=== PATIENT | female | born 1965 | race Caucasian/White ===

== ENCOUNTER 2024-02-10 12:17 | Inpatient (IN) | payer MEDICAID, SELFPAY ==
--- NOTE | ~2024-02-10 | XR_ITS ---
EXAMINATION: XR CHEST CLINICAL INFORMATION: Bilateral leg swelling COMPARISON: None available. TECHNIQUE: 2 views of the chest were obtained. FINDINGS: Lungs and pleural spaces: There is mild increased interstitial markings bilaterally. Cardiomediastinal silhouette mildly enlarged. Surgical clips in left axillary region. Spondylosis of the dorsal spine. XR/XR chest 2V IMPRESSION: Findings suspicious for pulmonary edema/congestive heart failure Electronically signed by: Timothy Love MD 02/10/2024 02:21 PM [facility]
--- NOTE | 2024-02-10 13:21 | ED_ITS ---
HPI - General Adult General Chief complaint: Dyspnea Stated complaint: both legs swelling Time Seen by Provider: 02/10/24 21:34 Source: patient Mode of arrival: wheelchair Limitations: no limitations History of Present Illness ED Provider: Theresa Redd NP HPI narrative: Patient is a 59-year-old female who presents emergency department for evaluation. She reports a longstanding history of hypertension which has gone untreated. She states ?I am stubborn?. The exact onset of her symptoms at this time are unclear but have been at least for a couple of months. She has noticed increased swelling to her bilateral lower extremities, so much so that recently she has developed weeping lesions to the lower legs. She has become increasingly more short of breath than dyspneic on exertion. She experiences diffuse anterior chest pain on exertion but not while at rest. Endorses orthopnea but denies PND. Also admits that she has had a poor appetite. She denies any recent URI symptoms, productive cough, nausea, vomiting, abdominal pain, numbness or tingling of the extremities. Related Data Allergies Allergy/AdvReac Type Severity Reaction Status Date / Time No Known Allergies Allergy Verified 02/10/24 13:23 [No Known Allergies*] Review of Systems 2 Review of Systems: Yes all other systems are reviewed and are negative PMFSH Past Medical History Attestation statement: The following information was validated with the patient. Source: old records reviewed Medical History Hypertension Social History Social History Alcohol intake: current Patient Tobacco Use Status: Never used Tobacco Smoked in Last 30 Days: No Use of substances other than those prescribed or required for medical reasons: Yes Substance Use Type: Marijuana Advance Directives: No Advance Directives Information Provided: No Do you have a plan to hurt others: No Plan Nutrition Risks: No Nutritional Risk Patient : No Physical Exam ED Vital Signs: Vital Signs - 24 hr 02/10/24 13:22 02/10/24 21:46 02/10/24 22:38 Temperature 98.1 F 97.8 F Pulse Rate 102 H 100 Respiratory Rate 18 37 H Blood Pressure 151/89 H 155/91 H 130/82 Pulse Oximetry 97 96 Oxygen Delivery Method Room Air Room Air BMI result Body Mass Index 50.8 Appearance: Alert.?Oriented to person, place and time. No acute distress.?Normal affect. Eyes: Pupils equal, round and reactive to light.? ENT: Pharynx normal.?? Neck: Normal inspection.? Neck supple.?? CVS: Heart sounds normal. Normal heart rate and rhythm.? Pulses normal.?? Respiratory: Tachypnea, no tripoding. Able to speak clear full sentences. Lung sounds clear at the apices, rales to the bilateral bases. Abdomen: Soft and non-tender. Normoactive bowel sounds. Skin: Skin warm and dry.? Normal skin color.? Extremities: 3+ pitting bilateral lower extremity edema.? Left lower leg with a few weeping ulcers. Unable to palpate pulses, positive Doppler signal DP bilaterally. No calf ttp? Neuro: Moves all extremities spontaneously. Sensation intact bilaterally. No focal neuro deficits. Course Course Course Narrative: This is a rapid medical exam performed by Nano Pereira NP: Additional HPI, ROS, PE not included below will be deferred to primary provider. Patient is a 59-year-old female presenting with 2 months of swelling to bilateral legs and feet. Does not have PCP. Plan: labs, cxr Medications Administered Generic Name Dose Route Start Last Admin Trade Name Freq PRN Reason Stop Dose Admin Enoxaparin Sodium 40 mg 02/10/24 23:30 02/11/24 00:34 Enoxaparin Sodium 40 Mg/0.4 Ml Syringe SUBCUT 40 mg Q12H BALDEMAR Administration Sodium Chloride 3 ml 02/11/24 00:00 02/11/24 00:49 0.9 % Sodium Chloride Flush 3 Ml Syringe IVFLUSH 3 ml QSHIFT BALDEMAR Administration Discontinued Medications Generic Name Dose Route Start Last Admin Trade Name Freq PRN Reason Stop Dose Admin Furosemide 60 mg 02/10/24 22:27 02/10/24 22:38 Furosemide 100 Mg/10 Ml Vial IVPUSH 02/10/24 22:28 60 mg ONCE ONE Administration Protocol Medical Decision Making Medical Decision Making [facility] Narrative: Patient is a 59-year-old female with known past medical history of hypertension which has gone untreated for many years. She presents with progressive bilateral lower extremity edema, shortness of breath and dyspnea on exertion for at least a couple of months but perhaps longer. As time my initial evaluation she is tachypneic but able to speak clear full sentences, clinical picture is consistent with acute onset CHF. On review of serum labs she has no leukocytosis, has a mild normocytic anemia not meeting any transfusion criteria, no thrombocytopenia. No electrolyte derangement. No BENEDICT. LFTs within normal range. Mildly elevated troponin 54.5 which is likely due to underlying heart failure rather than acute ACS. EKG is without acute ischemic findings; normal sinus rhythm with ventricular rate of 96, QTC prolonged at 482, no ST elevation. Initiating Lasix IV, patient will require admission to medicine service for further evaluation and treatment. Differential Diagnosis Differential Diagnoses: The differential diagnosis associated with the presentation includes No rash or lesions, urticaria, or evidence of angioedema to suggest allergic reaction/anaphylaxis. No swallowing difficulties to suggest aspiration. No recent trauma or injury, no tracheal deviation, unlikely tension pneumothorax. No recent URI symptoms to suggest viral illness, or pneumonia. No history of diabetes, unlikely DKA. No history of asthma or COPD to suggest acute exacerbation. Admission/Observation Consideration of admission/observation: Escalation of care including admission/observation considered Consult Healthcare Provider Management of the patient was discussed with: Hospitalist (Dr. Khanna) Lab Data MDM Lab Attestation statement: I reviewed the patient's lab results. (See narrative above) 02/10/24 14:53 02/10/24 14:53 Labs: Lab Results 02/10/24 Range/Units 14:53 WBC 7.7 (4.8-10.8) X10*3/uL RBC 4.04 L (4.20-5.50) X10*6/uL Hgb 11.1 L (12.0-16.0) g/dl Hct 35.5 L (37.0-47.0) % MCV 87.9 (80.0-98.0) fL MCH 27.5 (27.0-33.0) pg MCHC 31.3 (31.0-35.0) g/dl RDW 15.5 (11.0-16.0) % Plt Count 340 (160-400) X10*3/uL MPV 9.2 L (9.4-12.3) fL Immature Gran % (Auto) 0.3 (0.0-0.4) % Neut % (Auto) 78.5 H (45-73) % Lymph % (Auto) 15.8 L (20-40) % [place] % (Auto) 4.5 (2-11) % Eos % (Auto) 0.4 (0-4) % Baso % (Auto) 0.5 (0-2) % Lymph # (Auto) 1.2 (1.2-4.9) X10*3/uL [place] # (Auto) 0.4 (0.1-1.2) X10*3/uL Eos # (Auto) 0.0 (0.0-0.4) X10*3/uL Baso # (Auto) 0.0 (0.0-0.2) X10*3/uL Abs Immat Gran (auto) 0.02 (0.00-0.03) X10*3/uL Absolute Neuts (auto) 6.1 (2.0-8.3) x10*3/uL Absolute Nucleated RBC 0.000 (0.0-0.012) X10*3/uL Nucleated RBC % (auto) 0.0 (0.0-0.2) /100WBC Sodium 143 (135-145) mmol/L Potassium 3.7 (3.3-5.1) mmol/L Chloride 102 (96-108) mmol/L Carbon Dioxide 28 (22-29) mmol/L Anion Gap 17 (12-20) BUN 10 (9-16) mg/dL Creatinine 0.94 (0.5-1.4) mg/dL Estim Creat Clear Calc 89.1 Estimated GFR > 60 Random Glucose 98 (60-115) mg/dL Calcium 9.7 (8.4-10.2) mg/dL Total Bilirubin 0.8 (0.0-1.0) mg/dL AST 27 (5-31) U/L ALT 16 (0-31) U/L Alkaline Phosphatase 112 (39-117) U/L Troponin I High Sens 54.5 H* (<3.5-17.0) ng/L B-Natriuretic Peptide 1476 H (<100) pg/mL Total Protein 7.4 (6.5-8.0) g/dL Albumin 4.0 (3.5-5.0) g/dL Independent Interpretation I performed an independent interpretation of an: Plain X-Ray (Pulmonary congestion) Radiology Impression Discussion of test interpretation with radiology: I have reviewed the radiologist's reading. Radiologist Impression: XR/XR chest 2V IMPRESSION: Findings suspicious for pulmonary edema/congestive heart failure Independent Historian Clinical information obtained from an independent historian. History obtained from or confirmed by: Other (Children) Chronic Conditions Patient?s care impacted by: Hypertension Critical Care Time Critical Care Time Critical Care Time: Yes Total Critical Care Time: 35 Attestation: I personally attest to this critical care time spent taking care of the patient exclusive of all other billable procedures was approximately 35 minutes including initial evaluation of patient, ordering tests, x-ray interpretation, EKG interpretation, IV diuresis, medical consultation, documentation, re- evaluation. Discharge Plan Discharge Clinical Impression: Congestive heart failure (CHF), Hypertension Patient Disposition: Admitted As Inpatient
[2024-02-10 13:22] VITALS: BP 151/89; PULSE 102; RESP 18; TEMP 36.7; O2SAT 97; BMI 50.8
[2024-02-10 14:58] LABS: Basophils Percent Auto 0.5 % (0-2); Eosinophils Percent Auto 0.4 % (0-4); Hematocrit 35.5 % (37.0-47.0); Hemoglobin 11.1 g/dl (12.0-16.0); Imm Gran Abs Auto 0.02 X10*3/uL (0.00-0.03); Imm Gran Pct Auto 0.3 % (0.0-0.4); Lymphocytes Absolute Auto 1.2 X10*3/uL (1.2-4.9); Lymphocytes Percent Auto 15.8 % (20-40); MANUAL DIFF FLAG NO; Mean Corpuscular HGB Conc 31.3 g/dl (31.0-35.0); Mean Corpuscular Hemoglobin 27.5 pg (27.0-33.0); Mean Corpuscular Volume 87.9 fL (80.0-98.0); Mean Platelet Volume 9.2 fL (9.4-12.3); Monocytes Absolute Auto 0.4 X10*3/uL (0.1-1.2); Monocytes Percent Auto 4.5 % (2-11); Neutrophils Absolute Auto 6.1 x10*3/uL (2.0-8.3); Neutrophils Percent Auto 78.5 % (45-73); Platelet Count 340 X10*3/uL (160-400); Red Blood Count 4.04 X10*6/uL (4.20-5.50); Red Cell Distribution Width 15.5 % (11.0-16.0); White Blood Count 7.7 X10*3/uL (4.8-10.8)
[2024-02-10 15:12] LABS: Alanine Aminotransferase 16 U/L (0-31); Alkaline Phosphatase 112 U/L (39-117); Anion Gap 17 (12-20); Aspartate Amino Transferase 27 U/L (5-31); Bilirubin Total 0.8 mg/dL (0.0-1.0); Blood Urea Nitrogen 10 mg/dL (9-16); Calcium 9.7 mg/dL (8.4-10.2); Carbon Dioxide 28 mmol/L (22-29); Chloride 102 mmol/L (96-108); Creatinine Clr Calc Pharmacy 89.1; Estimated Glomerular Filt Rate > 60; Glucose Random 98 mg/dL (60-115); Potassium 3.7 mmol/L (3.3-5.1); Sodium 143 mmol/L (135-145); Total Protein 7.4 g/dL (6.5-8.0)
[2024-02-10 15:18] LABS: B Type Natriuretic Peptide 1476 pg/mL (<100)
[2024-02-10 21:46] VITALS: BP 155/91; PULSE 100; RESP 37; TEMP 36.6; O2SAT 96
--- NOTE | 2024-02-10 22:10 | ECG_ITS ---
Test Reason : chf Blood Pressure : / mmHG Vent. Rate : 096 BPM Atrial Rate : 096 BPM P-R Int : 146 ms QRS Dur : 102 ms QT Int : 382 ms P-R-T Axes : 037 026 119 degrees QTc Int : 482 ms Normal sinus rhythm Nonspecific ST and T wave abnormality Prolonged QT Abnormal ECG No previous ECGs available Referred By: Theresa Redd Electronically Signed By:Andriy Prakash
--- NOTE | 2024-02-10 22:10 | PC.NURSE ---
pt from home, a&ox4, respirations even and unlabored. pt reporting onset of lower extremity swelling and increased shortness of breath. pt reports shortness of breath increases with exertion. pt is able to speak in full clear sentences but is unable to ambulate long distance. pt noted to have bilateral expiratory wheezing. +pedal pulses noted with doppler. pt noted to have 3+ pitting edema.
[2024-02-10 22:36] LABS: Troponin-I High Sensitivity 54.5 ng/L (<3.5-17.0)
[2024-02-10 22:38] VITALS: BP 130/82
[2024-02-10] MEDS: Furosemide 100 MG/10 ML VIAL 60 MG IVPUSH (22:38)
--- NOTE | 2024-02-10 22:42 | P.HPHOSP_ITS ---
History of Present Illness Date of Service: 02/10/24 Chief Complaint: Dyspnea This is a 59-year-old female with pertinent history of hypertension noncompliant with prescription medications who presents to the emergency department for evaluation of leg swelling and dyspnea. Patient states her symptoms have been ongoing for the last 2 months. She noticed progressive swelling of her bilateral lower extremities. Also has been having dyspnea which is worse with exertion. Admits orthopnea. States she has not been taking any medications for her high blood pressure. Does not take any prescription medications. No fever, chills, chest pain, palpitations, abdominal pain, changes in urinary or bowel habits. In the emergency department, BNP found to be elevated and imaging with vascular congestion/pulmonary edema. Patient was given IV Lasix Review of Systems 2 Constitutional: Constitutional: Reports fatigue and Reports malaise Cardiovascular: Cardiovascular: Reports dyspnea on exertion and Reports orthopnea Respiratory: Respiratory: Reports dyspnea on exertion Gastrointestinal: Gastrointestinal: Reports no additional gastrointestinal complaints Genitourinary: Genitourinary: Reports no additional female genitourinary complaints Endocrine: Endocrine: Reports fatigue [facility] Medical History Hypertension Pertinent family history: No family history of early CAD Social History Alcohol intake: current Patient Tobacco Use Status: Never used Tobacco Smoked in Last 30 Days: No Use of substances other than those prescribed or required for medical reasons: Yes Substance Use Type: Marijuana Advance Directives: No Advance Directives Information Provided: No Do you have a plan to hurt others: No Plan Nutrition Risks: No Nutritional Risk Patient : No Meds Allergies Allergy/AdvReac Type Severity Reaction Status Date / Time No Known Allergies Allergy Verified 02/10/24 13:23 [No Known Allergies*] Physical Exam 2 Vital Signs and Narrative: Vital Signs: Last Vital Signs Temp 97.8 F 02/10/24 21:46 Pulse 100 02/10/24 21:46 Resp 37 H 02/10/24 21:46 BP 130/82 02/10/24 22:38 Pulse Ox 96 02/10/24 21:46 O2 Del Method Room Air 02/10/24 21:46 BMI result Body Mass Index 50.8 Middle-aged female lying in bed in no distress Neck supple Regular rate and rhythm, S1-S2 heard Bilateral crackles present Abdomen soft nontender, no guarding, no rigidity Patient is awake, alert and oriented to self, place, time and person ; no focal motor deficit Psych: Normal mood Bilateral pitting edema Results Labs 02/10/24 14:53 02/10/24 14:53 Labs: Laboratory Results - last 24 hr 02/10/24 14:53 MCV 87.9 MCH 27.5 MCHC 31.3 RDW 15.5 Plt Count 340 MPV 9.2 L Immature Gran % (Auto) 0.3 Neut % (Auto) 78.5 H Lymph % (Auto) 15.8 L [place] % (Auto) 4.5 Eos % (Auto) 0.4 Baso % (Auto) 0.5 Lymph # (Auto) 1.2 [place] # (Auto) 0.4 Eos # (Auto) 0.0 Baso # (Auto) 0.0 Abs Immat Gran (auto) 0.02 Absolute Neuts (auto) 6.1 Absolute Nucleated RBC 0.000 Nucleated RBC % (auto) 0.0 Anion Gap 17 Estim Creat Clear Calc 89.1 Estimated GFR > 60 Random Glucose 98 Calcium 9.7 Total Bilirubin 0.8 AST 27 ALT 16 Alkaline Phosphatase 112 Troponin I High Sens 54.5 H* B-Natriuretic Peptide 1476 H Total Protein 7.4 Albumin 4.0 Imaging Radiologist's Impressions: Impressions Chest X-Ray 02/10/24 13:23 IMPRESSION: Findings suspicious for pulmonary edema/congestive heart failure Electronically signed by: Timothy Love MD 02/10/2024 02:21 PM [facility] Assessment and Plan (1) Congestive heart failure (CHF): Status: Acute Plan This is a 59-year-old female with pertinent history of hypertension noncompliant with prescription medications who presents to the emergency department for evaluation of leg swelling and dyspnea. #. Acute decompensated congestive heart failure, new diagnosis: Will admit patient with IV diuresis. Strict I's and O's. Low-salt diet. Obtaining transthoracic echocardiogram #. Hypertension: Noncompliant with medications. Monitor with IV diuresis. Optimize and initiate antihypertensives #. Obesity: Counseled regarding diet and exercise #. Elevated troponin, likely type 2 in the setting of increased demand DVT prophylaxis: Lovenox Full code Admit as inpatient and will require two night minimum hospital stay for IV diuresis, optimization of volume status (as above), which is not possible in a lesser acute setting. Quality Stroke Does the patient have a stroke diagnosis?: No VTE Prior VTE?: No VTE Risk Level:: Medical - moderate - high VTE Device Contraindication: Treatment Not Indicated VTE Drug Contraindication: N/A - Med Ordered
--- NOTE | 2024-02-10 22:44 | PC.NURSE ---
20G placed in right forearm, pt medicated per mar. vss. pt given bedside commode and educated on use of call braden.
--- NOTE | 2024-02-10 23:17 | PC.NURSE ---
pt assisted to bedside commode, pt able to stand and pivot with steady gait, pt noted to be short of breath. urine sample obtained.
[2024-02-10 23:19] LABS: Troponin-I High Sensitivity 54.5 ng/L (<3.5-17.0)
[2024-02-10 23:26] LABS: Appearance Urine Cloudy; Color Urine Yellow; Glucose Urine UA Negative (Negative); Leukocyte Esterase Urine Trace (Negative); Nitrite Urine Negative (Negative); UMIC TRIGGER UACC YES; Urine Blood Negative (Negative); Urine Ketones Negative (Negative); Urine Protein 30 (1+) mg/dL (Neg-Trace)
[2024-02-10 23:36] LABS: Bacteria Urine 4+ (None Seen); Hyaline Casts Urine 0-2 /LPF (0-2); RBC Urine 0-2 /HPF (0-2); WBC Urine 0-5 /HPF (0-5)
[2024-02-11] MEDS: Enoxaparin Sodium 40 MG/0.4 ML SYRINGE SUBCUT ×3 (00:34→23:30)
[2024-02-11] MEDS: 0.9 % Sodium Chloride Flush 3 ML SYRINGE IVFLUSH ×2 (00:49→23:30)
--- NOTE | 2024-02-11 04:11 | PC.NURSE ---
pt assisted to bedside commode, pt able to stand pivot with stand by assist. pt voided 300ml urine.
[2024-02-11 05:17] LABS: MANUAL DIFF FLAG NO
[2024-02-11 05:22] LABS: Basophils Percent Auto 0.5 % (0-2); Eosinophils Absolute Auto 0.1 X10*3/uL (0.0-0.4); Eosinophils Percent Auto 0.7 % (0-4); Hematocrit 36.3 % (37.0-47.0); Hemoglobin 11.2 g/dl (12.0-16.0); Imm Gran Abs Auto 0.03 X10*3/uL (0.00-0.03); Imm Gran Pct Auto 0.3 % (0.0-0.4); Lymphocytes Absolute Auto 1.5 X10*3/uL (1.2-4.9); Lymphocytes Percent Auto 17.5 % (20-40); Mean Corpuscular HGB Conc 30.9 g/dl (31.0-35.0); Mean Corpuscular Hemoglobin 27.2 pg (27.0-33.0); Mean Corpuscular Volume 88.1 fL (80.0-98.0); Mean Platelet Volume 9.2 fL (9.4-12.3); Monocytes Absolute Auto 0.6 X10*3/uL (0.1-1.2); Monocytes Percent Auto 6.4 % (2-11); Neutrophils Absolute Auto 6.4 x10*3/uL (2.0-8.3); Neutrophils Percent Auto 74.6 % (45-73); Platelet Count 359 X10*3/uL (160-400); Red Blood Count 4.12 X10*6/uL (4.20-5.50); Red Cell Distribution Width 15.6 % (11.0-16.0); White Blood Count 8.6 X10*3/uL (4.8-10.8)
[2024-02-11 05:37] VITALS: BP 156/89; PULSE 103; RESP 20; TEMP 36.6; O2SAT 100
[2024-02-11 05:39] LABS: Anion Gap 15 (12-20); Blood Urea Nitrogen 10 mg/dL (9-16); Carbon Dioxide 31 mmol/L (22-29); Chloride 103 mmol/L (96-108); Creatinine Clr Calc Pharmacy 75.4; Estimated Glomerular Filt Rate 50; Glucose Random 106 mg/dL (60-115); Potassium 3.9 mmol/L (3.3-5.1); Sodium 145 mmol/L (135-145)
--- NOTE | 2024-02-11 06:45 | PC.NURSE ---
pt requesting to sit in chair, pt reports stretcher is uncomfortable at this time. attempted to obtain recliner or hospital bed, unable to obtain either. pt placed in chair per request, appears comfortable, no acute distress noted.
[2024-02-11 07:29] VITALS: BP 149/86; PULSE 103; RESP 25; TEMP 36.8; O2SAT 98
[2024-02-11] MEDS: Furosemide 40 MG/4 ML VIAL IVPUSH (08:26)
--- NOTE | 2024-02-11 08:27 | PC.NURSE ---
patient sitting up in chair next to bed eating breakfast this morning, patient is alert and oriented x4. patient resp even, patient breathing slightly labored. patient VSS, skin noted to be PWD. patient medicated per MAR. patient up to commode on her own.
--- NOTE | 2024-02-11 08:38 | PHA.MEDREC ---
Pharmacy Consult ? Medication Reconciliation Pharmacy has completed the medication reconciliation. Spoke with patient at bedside to confirm no home prescriptions.
--- NOTE | 2024-02-11 09:00 | MHC.EDTECH ---
assist patient to camode her out put was [phone]
--- NOTE | 2024-02-11 11:45 | MHC.CM.PN ---
Pt lives with family, she does not have a PCP, brochure with [facility] providers given, HCP discussed, she declined to complete form. She is independent, no home health services or DME. She can arrange transport home at DC. DCP: home, self care. CM to follow for DC needs.
[2024-02-11] MEDS: Acetaminophen 325 MG TABLET 650 MG PO (14:11)
--- NOTE | 2024-02-11 15:00 | MHC.EDTECH ---
patient on camode her urine out put was [phone]
--- NOTE | 2024-02-11 16:08 | HO.PM.IMPN ---
Subjective Subjective Date of Service: 02/11/24 Interval History: chf Review of Systems sob Physical Exam Vital Signs: Vital Signs: Last Vital Signs Temp 98.3 F 02/11/24 07:29 Pulse 103 H 02/11/24 07:29 Resp 25 H 02/11/24 07:29 BP 149/86 H 02/11/24 07:29 Pulse Ox 98 02/11/24 07:29 O2 Del Method Room Air 02/11/24 07:29 BMI result Body Mass Index 50.8 Middle-aged female lying in bed in no distress Regular rate and rhythm, S1-S2 heard. Bilateral crackles present Abdomen soft nontender, no guarding, no rigidity Patient is awake, alert and oriented to self, place, time and person ; no focal motor deficit Psych: Normal mood Bilateral pitting edema Objective Data Active Medications Acetaminophen (Acetaminophen 325 Mg Tablet) 650 mg PO Q6H PRN PRN Reason: Pain, Mild (Pain Scale 1-3), fever or headache Last Admin: 02/11/24 14:11 Dose: 650 mg Documented By: TROY Calcium Carbonate (Calcium Carbonate 750 Mg Tab.Chew) 750 mg PO Q4H PRN PRN Reason: Heartburn Enoxaparin Sodium (Enoxaparin Sodium 40 Mg/0.4 Ml Syringe) 40 mg SUBCUT Q12H [facility] Last Admin: 02/11/24 11:38 Dose: 40 mg Documented By: TROY Furosemide (Furosemide 40 Mg/4 Ml Vial) 40 mg IVPUSH DAILY [facility]; Protocol Last Admin: 02/11/24 08:26 Dose: 40 mg Documented By: TROY Magnesium Hydroxide (Milk Of Magnesia 30 Ml Oral.Susp) 30 ml PO DAILY PRN PRN Reason: Constipation Melatonin (Melatonin 3 Mg Tablet) 6 mg PO BEDTIME PRN PRN Reason: Insomnia Ondansetron HCl (Ondansetron Hcl 4 Mg/2 Ml Vial) 4 mg IVPUSH Q8H PRN PRN Reason: Nausea and Vomiting Sodium Chloride (0.9 % Sodium Chloride Flush 3 Ml Syringe) 3 ml IVFLUSH QSHIFT [facility] Last Admin: 02/11/24 15:46 Dose: Not Given Documented By: TROY Non-Admin Reason: See Note Labs 02/11/24 05:00 02/11/24 05:00 Labs: Laboratory Results - last 24 hr 02/10/24 02/10/24 02/10/24 14:53 22:51 23:13 MCV MCH MCHC RDW Plt Count MPV Immature Gran % (Auto) Neut % (Auto) Lymph % (Auto) [place] % (Auto) Eos % (Auto) Baso % (Auto) Lymph # (Auto) [place] # (Auto) Eos # (Auto) Baso # (Auto) Abs Immat Gran (auto) Absolute Neuts (auto) Absolute Nucleated RBC Nucleated RBC % (auto) Anion Gap Estim Creat Clear Calc Estimated GFR Random Glucose Calcium Troponin I High Sens 54.5 H* 54.5 H* Urine Color Yellow Urine Appearance Cloudy Urine pH 6.0 Ur Specific [place] 1.010 Urine Protein 30 (1+) H Urine Glucose (UA) Negative Urine Ketones Negative Urine Blood Negative Urine Nitrite Negative Ur Leukocyte Esterase Trace H Urine RBC 0-2 Urine WBC 0-5 Ur Squamous Epith Cells 3-5 Urine Bacteria 4+ Hyaline Casts 0-2 02/11/24 05:00 MCV 88.1 MCH 27.2 MCHC 30.9 L RDW 15.6 Plt Count 359 MPV 9.2 L Immature Gran % (Auto) 0.3 Neut % (Auto) 74.6 H Lymph % (Auto) 17.5 L [place] % (Auto) 6.4 Eos % (Auto) 0.7 Baso % (Auto) 0.5 Lymph # (Auto) 1.5 [place] # (Auto) 0.6 Eos # (Auto) 0.1 Baso # (Auto) 0.0 Abs Immat Gran (auto) 0.03 Absolute Neuts (auto) 6.4 Absolute Nucleated RBC 0.000 Nucleated RBC % (auto) 0.0 Anion Gap 15 Estim Creat Clear Calc 75.4 Estimated GFR 50 Random Glucose 106 Calcium 10.0 Troponin I High Sens Urine Color Urine Appearance Urine pH Ur Specific [place] Urine Protein Urine Glucose (UA) Urine Ketones Urine Blood Urine Nitrite Ur Leukocyte Esterase Urine RBC Urine WBC Ur Squamous Epith Cells Urine Bacteria Hyaline Casts Assessment and Plan (1) Congestive heart failure (CHF): Status: Acute Plan 59-year-old female with pertinent history of hypertension noncompliant with prescription medications who presents to the emergency department for evaluation of leg swelling and dyspnea. Acute decompensated congestive heart failure, new diagnosis: trop flat bnp [id number] continue with IV diuresis. Strict I's and O's. Low-salt diet. echocardiogram i/o neg 1.5 liters Hypertension: Noncompliant with medications. Monitor with IV diuresis. Optimize and initiate antihypertensives. Obesity: Counseled regarding diet and exercise Elevated troponin, likely type 2 in the setting of increased demand DVT prophylaxis: Lovenox . Full code ongoing inpatient and will require two night minimum hospital stay for IV diuresis, optimization of volume status (as above), which is not possible in a lesser acute setting. Quality Stroke Does the patient have a stroke diagnosis?: No VTE Prior VTE?: No VTE Risk Level:: Medical - moderate - high VTE Device Contraindication: Treatment Not Indicated VTE Drug Contraindication: N/A - Med Ordered
[2024-02-11 16:38] VITALS: BP 141/79; PULSE 102; RESP 16; TEMP 36.7; O2SAT 99
--- NOTE | 2024-02-11 18:39 | MHC.EDTECH ---
assist patient to camode. patient had a BM urine out put was [phone]. clean patient wt wipes,patient was unable to wipe bottom nurse aware.
--- NOTE | 2024-02-11 19:12 | PC.NURSE ---
report received from Candice BEAL that nurse to nurse report given and pt can go up at [phone]
[2024-02-11 19:18] VITALS: BP 138/81; PULSE 91; RESP 27; TEMP 36.3; O2SAT 99
[2024-02-11 20:28] VITALS: PULSE 108; RESP 20; TEMP 36.6; O2SAT 99
[2024-02-12] VITALS (8 sets, daily range): BP systolic 120–141; BP diastolic 66–79; PULSE 87–96; RESP 14–18; TEMP 36.3–37.1; O2SAT 96–97
--- NOTE | 2024-02-12 07:00 | CA_ITS ---
Transthoracic Echocardiogram Patient (Last, First, Middle): Malissa Lui, Gender: Female Date of : 1965 Age: 59 Procedure Date: 02/12/2024 Procedure Type: Transthoracic Echocardiogram Location: S3W Height: 162.56 cm Weight: 133.81 kg BSA: 2.31 m2 Heart Rate: 94 bpm BP: 149 / 86 mmHg Pediatrician/Medical Doctor: SB Referring MD: Pete Khanna MD Symptoms: CHF Study Quality: Adequate w contrast ECG Rhythm: Sinus Conclusions: - Normal left ventricular cavity size. The left ventricular systolic function is severely decreased. The visually estimated ejection fraction is between 20-25%. - Spectral Doppler is indicative of a restrictive filling pattern. Elevated filling pressures. - Normal right ventricular cavity size. There is mildly decreased right ventricular systolic function. - Moderately elevated right atrial pressure. Moderate pulmonary hypertension is present. Findings Procedure Information Contrast agent, definity, is being given per protocol without apparent complications. The quality of the study was technically difficult. The study quality is limited by patients body habitus. Left Ventricle Normal left ventricular cavity size. The left ventricular systolic function is severely decreased. The visually estimated ejection fraction is between 20-25%. There is severe global hypokinesis. Abnormal diastolic function is noted. Spectral Doppler is indicative of a restrictive filling pattern. Elevated filling pressures. Right Ventricle Normal right ventricular cavity size. There is mildly decreased right ventricular systolic function. Atria The left atrium is likely dilated. The right atrium is likely dilated. Aortic Valve Normal aortic valve structure and function. There is no aortic valve stenosis. There is no aortic valve regurgitation. Mitral Valve The mitral valve appears normal. There is trace mitral valve regurgitation. There is no mitral valve stenosis. Pulmonic Valve The pulmonic valve is likely normal. Tricuspid Valve Normal tricuspid valve structure. There is trace tricuspid valve regurgitation. The right ventricular systolic pressure is 54 mmHg. Moderately elevated right atrial pressure. Moderate pulmonary hypertension is present. Great Vessels There is mild dilatation of the ascending aorta measuring 3.80 cm. The visualized portions of the pulmonary artery and branches are normal. Venous The inferior vena cava is normal in size and collapses less than 50% with inspiration. Pericardium/Pleural There is no evidence of pericardial effusion. Prior Study Comparison No prior study available for comparison. Measurements 2D Linear Measurements IVSd: 0.66 0.6-0.9/0.6-1.0 cm LVIDd: 6.78 3.9-5.3/4.2-5.9 cm LVIDd Index: 2.94 2.4-3.2/2.2-3.1 cm/m2 LVIDs: 5.73 2.0-3.6 cm LVPWd: 0.93 0.7-1.1 cm LA Diam: 3.50 2.7-3.8/3.0-4.0 cm LAIDs Index: 1.52 1.5-2.3 cm/m2 LV Mass: 284.83 67-162/88-224 g LV Mass Index: 123.30 43-95/49-115 g/m2 LVOT Diam: 2.00 3.0+(-)1.3 cm 2D Systolic Function EF 4C: 25.30 >55% EF 2C: 23.60 >55% EF BiP: 26.20 >55% Mitral Valve MV Pk E: 1.25 MV PK A: 0.39 MV Decel Time: 124.00 E/A: 3.20 E'Lateral: 6.18 E'Medial: 4.26 E/E' Med: 29.30 E/E' Lat: 20.20 PHT: 36.00 MVA PHT: 6.11 Decel Kings: 10.12 Aortic Valve AoV Pk Cesar: 1.53 AoV Mn Cesar: 1.08 AoV VTI: 0.24 AoV Pk Grad: 9.00 Aov Mn Grad: 5.00 KRISTI Cont.VTI: 1.60 LVOT LVOT Pk Cesar: 0.78 LVOT Mn Cesar: 0.54 LVOT VTI: 0.12 LVOT Pk Grad: 2.00 LVOT Mn Grad: 2.00 LVOT Diam: 2.00 LVOT Area: 3.14 Diastolic Function MV Pk E: 1.25 MV Pk A: 0.39 E/A: 3.20 E'Medial: 4.26 E/E' Med: 29.30 E' Laterial: 6.18 E/E' Lat: 20.20 Right Ventricle TAPSE (mm): 15.30 TVS' Cesar: 8.76 Tricuspid Valve TR Pk Cesar: 3.14 TR Pk Grad: 39.00 RA Press: 8.00 RVSP: 54.00 Great Vessels Aorta Sinus of Valsalva: 3.10 2.0-3.5 cm Ao Asc: 3.80 2.1-3.4 cm Pulmonary Valve PV Pk Cesar: 1.21 Peak PV Grad: 6.00 Updated in Other Vendor System with Status of Final Andriy Prakash MD electronically signed on 02/12/2024 5:00:47 PM with status of Final
[2024-02-12] MEDS: 0.9 % Sodium Chloride Flush 3 ML SYRINGE IVFLUSH ×3 (07:36→23:56)
[2024-02-12] MEDS: Furosemide 20 MG/2 ML VIAL IVPUSH (09:51)
[2024-02-12] MEDS: Aspirin Enteric Coated 81 MG TABLET.DR PO (09:51)
[2024-02-12] MEDS: Enoxaparin Sodium 40 MG/0.4 ML SYRINGE SUBCUT ×2 (11:41→22:21)
--- NOTE | 2024-02-12 12:58 | PM.CNCAR ---
History of Present Illness History of Present Illness Date of Service: 02/12/24 Chief complaint: Dyspnea Narrative: [age] year female presenting with shortness of breath and peripheral edema. Clinically was noticed to be in heart failure and was admitted for further care. She underwent echocardiography which is showing cardiomyopathy at this point. She has longstanding history of hypertension and was not taking medicines the last 10 years. She also had breast cancer diagnosed in the left side for which she underwent surgery and chemotherapy in 2011. No radiation was given to her at that time. She is getting sharp stabbing chest pains with activity. Main complaint is shortness of breath and significant edema. She has been on IV diuretics at this point and is-960 mL. [facility] Past Medical History Medical History Hypertension Social History Social History Household Members: Other Household Members Other:: son Housing: Apartment Do you presently have visiting nurse or other home services: No Alcohol intake: current Patient Tobacco Use Status: Never used Tobacco Smoked in Last 30 Days: No Use of substances other than those prescribed or required for medical reasons: No Substance Use Type: Marijuana Currently Displaying Signs/Symptoms of Drug Intoxication Withdrawal: No Have you been hit, kicked, punched, or otherwise hurt by someone within the past year? If so, by whom?: No Do you feel safe in your current relationship?: No Current Relationship Is there a partner from a previous relationship who is making you feel unsafe now?: No Are you made to feel afraid or neglected: No Advance Directives: No Advance Directives Information Provided: No Do you have a plan to hurt others: No Plan Recently lost weight without trying: No Eating poorly because of decreased appetite: No Nutrition Risks: No Nutritional Risk Patient : No : No Poor oral hygiene: No service: No Meds Allergies Allergy/AdvReac Type Severity Reaction Status Date / Time No Known Allergies Allergy Verified 02/10/24 13:23 [No Known Allergies*] Active Medications: Current Medications Acetaminophen (Acetaminophen 325 Mg Tablet) 650 mg PO Q6H PRN PRN Reason: Pain, Mild (Pain Scale 1-3), fever or headache Last Admin: 02/11/24 14:11 Dose: 650 mg Aspirin (Aspirin Enteric Coated 81 Mg Tablet.) 81 mg PO DAILY [facility] Last Admin: 02/12/24 09:51 Dose: 81 mg Calcium Carbonate (Calcium Carbonate 750 Mg Tab.Chew) 750 mg PO Q4H PRN PRN Reason: Heartburn Enoxaparin Sodium (Enoxaparin Sodium 40 Mg/0.4 Ml Syringe) 40 mg SUBCUT Q12H [facility] Last Admin: 02/12/24 11:41 Dose: 40 mg Furosemide (Furosemide 20 Mg/2 Ml Vial) 40 mg IVPUSH BID@0900,1800 [facility]; Protocol Magnesium Hydroxide (Milk Of Magnesia 30 Ml Oral.Susp) 30 ml PO DAILY PRN PRN Reason: Constipation Melatonin (Melatonin 3 Mg Tablet) 6 mg PO BEDTIME PRN PRN Reason: Insomnia Ondansetron HCl (Ondansetron Hcl 4 Mg/2 Ml Vial) 4 mg IVPUSH Q8H PRN PRN Reason: Nausea and Vomiting Sacubitril/Valsartan (Sacubitril/Valsartan 1 Tab Tablet) 1 tab PO BID [facility]; Protocol Sodium Chloride (0.9 % Sodium Chloride Flush 3 Ml Syringe) 3 ml IVFLUSH QSHIFT [facility] Last Admin: 02/12/24 07:36 Dose: 3 ml Home Medications ?Medication ?Instructions ?Recorded ?Confirmed ?Last Taken ?Type acetaminophen 325 mg tablet 650 mg PO QID PRN Pain 02/11/24 02/11/24 3 Days Ago History (Tylenol) ~02/08/24 aspirin 325 mg tablet 650 mg PO Q4-6H PRN Pain 02/11/24 02/11/24 3 Days Ago History ~02/08/24 Physical Exam Vital Signs: Vital Signs: Last Vital Signs Temp 98.8 F 02/12/24 07:53 Pulse 96 02/12/24 07:53 Resp 16 02/12/24 07:53 BP 135/79 02/12/24 07:53 Pulse Ox 96 02/12/24 07:53 O2 Del Method Room Air 02/12/24 07:53 BMI result Body Mass Index 50.8 GENERAL APPEARANCE: in no acute distress, pleasant. NECK: no carotid bruit, + jugular venous distention. SKIN: no suspicious lesions, warm and dry. HEART: no murmurs, regular rate and rhythm. LUNGS: clear to auscultation bilaterally. ABDOMEN: soft, nontender. EXTREMITIES: 2+ edema. PERIPHERAL PULSES: equal. NEUROLOGIC: No gross deficits, AAO X 3 Objective Labs and Meds 02/11/24 05:00 02/11/24 05:00 Assessment and Plan (1) Hypertension: Status: Acute (2) Congestive heart failure (CHF): Status: Acute (3) Cardiomyopathy: Status: Acute Plan 59 year female presenting with shortness of breath and peripheral edema. Clinically in heart failure. Echocardiography is showing cardiomyopathy with LV dysfunction. We will review echocardiography in detail but it appears she has significant LV dysfunction at this point. She has background of breast cancer and previous chemotherapy which can be 1 potential reason for cardiomyopathy in her. Other possibilities are uncontrolled hypertension for long time versus ischemic heart disease. She has some chest pains with activity but she is describing a stabbing sensation in the chest. In any case she will need ischemic evaluation eventually. Continue IV diuretics. Adding Entresto and spironolactone. Once she is euvolemic we will add beta-andrei. Thank you for allowing me to participate in the care of your patient. Please feel free to contact me if you have any questions. Procedures Date of Service Date of Service: 02/12/24
[2024-02-12] MEDS: Sacubitril/Valsartan 24/26 1 TAB TABLET PO ×2 (13:30→20:55)
[2024-02-12] MEDS: Spironolactone 25 MG TABLET PO (13:30)
--- NOTE | 2024-02-12 14:39 | P.PNIM_ITS ---
Subjective Subjective Date of Service: 02/12/24 Interval History: chf execerebation Review of Systems sob somewhat improving has leg edema Physical Exam 2 Vital Signs: Vital Signs: Last Vital Signs Temp 98.8 F 02/12/24 07:53 Pulse 96 02/12/24 07:53 Resp 16 02/12/24 07:53 BP 137/78 02/12/24 13:30 Pulse Ox 96 02/12/24 07:53 O2 Del Method Room Air 02/12/24 07:53 BMI result Body Mass Index 50.8 General: Not in distress cvs:Regular rate and rhythm, S1-S2 heard. Chest: Air entry fair, has some bibasilar crackles Abdomen soft nontender, no guarding, no rigidity Patient is awake, alert and oriented to self, place, time and person ; no focal motor deficit Bilateral pitting andre Objective Data Active Medications Acetaminophen (Acetaminophen 325 Mg Tablet) 650 mg PO Q6H PRN PRN Reason: Pain, Mild (Pain Scale 1-3), fever or headache Last Admin: 02/11/24 14:11 Dose: 650 mg Documented By: TROY Aspirin (Aspirin Enteric Coated 81 Mg Tablet.) 81 mg PO DAILY COUNT [facility]CLUDES [facility] Last Admin: 02/12/24 09:51 Dose: 81 mg Documented By: CARL Calcium Carbonate (Calcium Carbonate 750 Mg Tab.Chew) 750 mg PO Q4H PRN PRN Reason: Heartburn Enoxaparin Sodium (Enoxaparin Sodium 40 Mg/0.4 Ml Syringe) 40 mg SUBCUT Q12H COUNT INCLUDES THE [facility] Last Admin: 02/12/24 11:41 Dose: 40 mg Documented By: CARL Furosemide (Furosemide 20 Mg/2 Ml Vial) 40 mg IVPUSH BID@0900,1800 COUNT [facility]CLUDES [facility]; Protocol Magnesium Hydroxide (Milk Of Magnesia 30 Ml Oral.Susp) 30 ml PO DAILY PRN PRN Reason: Constipation Melatonin (Melatonin 3 Mg Tablet) 6 mg PO BEDTIME PRN PRN Reason: Insomnia Ondansetron HCl (Ondansetron Hcl 4 Mg/2 Ml Vial) 4 mg IVPUSH Q8H PRN PRN Reason: Nausea and Vomiting Sacubitril/Valsartan (Sacubitril/Valsartan 1 Tab Tablet) 1 tab PO BID COUNT INCLUDES THE [facility]; Protocol Last Admin: 02/12/24 13:30 Dose: 1 tab Documented By: CARL Sodium Chloride (0.9 % Sodium Chloride Flush 3 Ml Syringe) 3 ml IVFLUSH QSHIFT COUNT INCLUDES THE [facility] Last Admin: 02/12/24 07:36 Dose: 3 ml Documented By: CARL Spironolactone (Spironolactone 25 Mg Tablet) 25 mg PO DAILY COUNT INCLUDES THE [facility]; Protocol Last Admin: 02/12/24 13:30 Dose: 25 mg Documented By: CARL Labs 02/11/24 05:00 02/11/24 05:00 Assessment and Plan (1) Congestive heart failure (CHF): Status: Acute Plan 59-year-old female with pertinent history of hypertension noncompliant with prescription medications who presents to the emergency department for evaluation of leg swelling and dyspnea. Acute decompensated congestive heart failure, new diagnosis: trop flat bnp 1476 Strict I's and O's. Low-salt diet. echocardiogram i/o neg 750 ml continue with IV 40 mg bid . Hypertension: Noncompliant with medications. Monitor with IV diuresis. Optimize and initiate antihypertensives. Obesity: Counseled regarding diet and exercise Elevated troponin, likely type 2 in the setting of increased demand DVT prophylaxis: Lovenox . Full code ongoing inpatient and will require two night minimum hospital stay for IV diuresis, optimization of volume status (as above), which is not possible in a lesser acute setting. Quality Stroke Does the patient have a stroke diagnosis?: No VTE Prior VTE?: No VTE Risk Level:: Medical - moderate - high VTE Device Contraindication: Treatment Not Indicated VTE Drug Contraindication: N/A - Med Ordered
--- NOTE | 2024-02-12 16:11 | HO.WOUND ---
Wound Consult: Initial 59yr old female? admitted to [facility] on 02/10/24 22:41- See progress notes and H&P for detailed history.? Wound consult placed for Left Lower Leg wounds.? Patient agreeable to assessment and photo documentation.? Patient reports she does not know the cause of the wounds has not treated them and reports she is not able to provide me when they first occured. She refused lower leg elevation, education provided but she still refused elevation. Left Leg Etiology: ?Venous wound with swelling Measurements: see charting for detailed measurement Wound Bed: two open wound sites with adherent yellow slough Drainage / Odor: serous no odor noted Edges: ? unattached Cora wound: pink erythema and firm swelling noted ? No Induration, Fluctuance or Warmth noted Pain: reports pain Goals of Treatment: ? Lower Leg elevation and durafiber AG for moisture management - pt to follow up oupt with Lymphedema clinic for compression therapy. Recommendations: 1. Provide adequate and supplemental nutrition.? 2. When applicable maintain blood glucose levels per Providers order. 3. Left Lower Leg - Elevate lower legs throughout day. encourage patient walking to engage calf pump for fluid management. Cleanse with NS, pat dry. Apply durafiber AG cover with dry gauze abd and wrap. Change Every other day. Recommend follow up out patient Wound Clinic at [address] [place] [address] and to call for an appointment at time of discharge. [phone].? Recommend follow up outpt with OT for Lymphedema and compression therapy. ?[facility] [address] [place] [address] . Re-consult wound care Nurse for wound deterioration or wound changes.
[2024-02-12] MEDS: Furosemide 20 MG/2 ML VIAL 40 MG IVPUSH (18:03)
[2024-02-12] MEDS: Acetaminophen 325 MG TABLET 650 MG PO (18:10)
[2024-02-13] VITALS (8 sets, daily range): BP systolic 114–138; BP diastolic 60–91; PULSE 87–96; RESP 14–18; TEMP 36.2–36.9; O2SAT 92–98
[2024-02-13 07:43] LABS: Anion Gap 14 (12-20); Blood Urea Nitrogen 10 mg/dL (9-16); Calcium 9.3 mg/dL (8.4-10.2); Carbon Dioxide 36 mmol/L (22-29); Chloride 95 mmol/L (96-108); Creatinine Clr Calc Pharmacy 82.9; Estimated Glomerular Filt Rate 56; Glucose Random 84 mg/dL (60-115); Potassium 4.2 mmol/L (3.3-5.1); Sodium 141 mmol/L (135-145)
[2024-02-13 08:14] LABS: B Type Natriuretic Peptide 824 pg/mL (<100)
[2024-02-13] MEDS: Spironolactone 25 MG TABLET PO (08:30)
[2024-02-13] MEDS: Sacubitril/Valsartan 24/26 1 TAB TABLET PO ×2 (08:32→20:37)
[2024-02-13] MEDS: 0.9 % Sodium Chloride Flush 3 ML SYRINGE IVFLUSH ×3 (08:33→22:32)
[2024-02-13] MEDS: Furosemide 20 MG/2 ML VIAL 40 MG IVPUSH (08:34)
[2024-02-13] MEDS: Aspirin Enteric Coated 81 MG TABLET.DR PO (08:34)
[2024-02-13] MEDS: Acetaminophen 325 MG TABLET 650 MG PO ×2 (08:34→22:31)
[2024-02-13] MEDS: Enoxaparin Sodium 40 MG/0.4 ML SYRINGE SUBCUT ×2 (10:37→22:32)
[2024-02-13] MEDS: Empagliflozin 10 MG TABLET PO (10:37)
--- NOTE | 2024-02-13 11:11 | PM.PNCARD ---
Subjective Subjective Date of Service: 02/13/24 Interval history: Seen and examined at bedside. Feeling better but still short of breath and volume overloaded. Physical Exam Vital Signs: Last Vital Signs Temp 97.1 F 02/13/24 07:38 Pulse 89 02/13/24 07:38 Resp 14 02/13/24 07:38 BP 133/72 02/13/24 08:34 Pulse Ox 98 02/13/24 07:38 O2 Del Method Room Air 02/13/24 07:38 BMI result Body Mass Index 50.8 GENERAL APPEARANCE: in no acute distress, pleasant. NECK: no carotid bruit, + jugular venous distention. SKIN: no suspicious lesions, warm and dry. HEART: no murmurs, regular rate and rhythm. LUNGS: clear to auscultation bilaterally. ABDOMEN: soft, nontender. EXTREMITIES: 2+ edema. PERIPHERAL PULSES: equal. NEUROLOGIC: No gross deficits, AAO X 3 Objective Labs and Meds 02/11/24 05:00 02/13/24 05:13 Lab results: Laboratory Results - last 24 hr 02/13/24 05:13 Sodium 141 Potassium 4.2 Chloride 95 L Carbon Dioxide 36 H Anion Gap 14 BUN 10 Creatinine 1.01 Estim Creat Clear Calc 82.9 Estimated GFR 56 Random Glucose 84 Calcium 9.3 D B-Natriuretic Peptide 824 H Progress Note: A&P Assessment and plan (1) Congestive heart failure (CHF): Status: Acute (2) Hypertension: Status: Acute (3) Cardiomyopathy: Status: Acute Plan [age] year female with background history of left breast cancer status post surgery and chemotherapy approximately 10 years ago presenting with shortness of breath and congestive heart failure. She has severe cardiomyopathy on the echocardiogram. Has been on IV diuretics and responding well to management so far. We have started guideline directed medical therapy with Entresto and spironolactone. Adding Jardiance today. Should be ready to be started on carvedilol may be in the next day or 2. We will follow along with you. Thank you for allowing me to participate in the care of your patient. Please feel free to contact me if you have any questions. Time Spent With Patient Time: Total time managing care of this patient today ____ minutes. Progress Note: Quality Stroke Does the patient have a stroke diagnosis?: No Procedures Date of Service Date of Service: 02/13/24
--- NOTE | 2024-02-13 12:40 | MHC.CM.PN ---
EMR REVIEWED AND PER MD ROUNDS, PT IS NOT MEDICALLY CLEARED FOR DC HOME. (VOLUME OVERLOADED, SOB) CM WILL CONTINUE TO FOLLOW FOR ANY CHANGE TO DC PLAN/NEEDS.
--- NOTE | 2024-02-13 13:44 | HO.PM.IMPN ---
Subjective Subjective Date of Service: 02/13/24 Interval History: chf execerebation Review of Systems sob improving Still has significant leg edema. Physical Exam Vital Signs: Vital Signs: Last Vital Signs Temp 97.1 F 02/13/24 07:38 Pulse 89 02/13/24 07:38 Resp 14 02/13/24 07:38 BP 133/72 02/13/24 08:34 Pulse Ox 98 02/13/24 07:38 O2 Del Method Room Air 02/13/24 07:38 BMI result Body Mass Index 50.8 General: Not in distress cvs:Regular rate and rhythm, S1-S2 heard. Chest: Air entry fair, has some bibasilar crackles Abdomen soft nontender, no guarding, no rigidity Patient is awake, alert and oriented to self, place, time and person ; no focal motor deficit Bilateral pitting andre Objective Data Active Medications Acetaminophen (Acetaminophen 325 Mg Tablet) 650 mg PO Q6H PRN PRN Reason: Pain, Mild (Pain Scale 1-3), fever or headache Last Admin: 02/13/24 08:34 Dose: 650 mg Documented By: CARL Aspirin (Aspirin Enteric Coated 81 Mg Tablet.Dr) 81 mg PO DAILY [facility] Last Admin: 02/13/24 08:34 Dose: 81 mg Documented By: CARL Calcium Carbonate (Calcium Carbonate 750 Mg Tab.Chew) 750 mg PO Q4H PRN PRN Reason: Heartburn Empagliflozin (Empagliflozin 10 Mg Tablet) 10 mg PO DAILY [facility] Last Admin: 02/13/24 10:37 Dose: 10 mg Documented By: CARL Enoxaparin Sodium (Enoxaparin Sodium 40 Mg/0.4 Ml Syringe) 40 mg SUBCUT Q12H [facility] Last Admin: 02/13/24 10:37 Dose: 40 mg Documented By: CARL Furosemide (Furosemide 20 Mg/2 Ml Vial) 40 mg IVPUSH BID@0900,1800 [facility]; Protocol Last Admin: 02/13/24 08:34 Dose: 40 mg Documented By: CARL Magnesium Hydroxide (Milk Of Magnesia 30 Ml Oral.Susp) 30 ml PO DAILY PRN PRN Reason: Constipation Melatonin (Melatonin 3 Mg Tablet) 6 mg PO BEDTIME PRN PRN Reason: Insomnia Ondansetron HCl (Ondansetron Hcl 4 Mg/2 Ml Vial) 4 mg IVPUSH Q8H PRN PRN Reason: Nausea and Vomiting Sacubitril/Valsartan (Sacubitril/Valsartan 1 Tab Tablet) 1 tab PO BID [facility]; Protocol Last Admin: 02/13/24 08:32 Dose: 1 tab Documented By: CARL Sodium Chloride (0.9 % Sodium Chloride Flush 3 Ml Syringe) 3 ml IVFLUSH QSHIFT [facility] Last Admin: 02/13/24 08:33 Dose: 3 ml Documented By: CARL Spironolactone (Spironolactone 25 Mg Tablet) 25 mg PO DAILY [facility]; Protocol Last Admin: 02/13/24 08:30 Dose: 25 mg Documented By: CARL Labs 02/11/24 05:00 02/13/24 05:13 Labs: Laboratory Results - last 24 hr 02/13/24 05:13 Anion Gap 14 Estim Creat Clear Calc 82.9 Estimated GFR 56 Random Glucose 84 Calcium 9.3 D B-Natriuretic Peptide 824 H Assessment and Plan (1) Congestive heart failure (CHF): Status: Acute Plan 59-year-old female with pertinent history of hypertension noncompliant with prescription medications who presents to the emergency department for evaluation of leg swelling and dyspnea. Acute decompensated congestive heart failure(HFrEF): trop flat bnp [id number] echocardiogram Strict I's and O's. Low-salt diet. i/o neg 2.9 liter continue with IV 40 mg daily , spironolactone, also added 1 dose acetazolamide.. Hypertension: Noncompliant with medications. Monitor with IV diuresis. Optimize and initiate antihypertensives. Obesity: Counseled regarding diet and exercise Elevated troponin, likely type 2 in the setting of increased demand DVT prophylaxis: Lovenox . Full code ongoing inpatient and will require two night minimum hospital stay for IV diuresis, optimization of volume status (as above), which is not possible in a lesser acute setting. Quality Stroke Does the patient have a stroke diagnosis?: No VTE Prior VTE?: No VTE Risk Level:: Medical - moderate - high VTE Device Contraindication: Treatment Not Indicated VTE Drug Contraindication: N/A - Med Ordered
--- NOTE | 2024-02-13 13:54 | P.CDIM_ITS ---
PROVIDER RESPONSE TEXT: To clarify, the appropriate diagnosis supported by the clinical indicators: Other (explain): HFrEF QUERY TEXT: PHYSICIAN'S DOCUMENTATION REQUEST Date of Query: 02/12/2024 02:14 PM EST Patient Name: Malissa Lui Admit Date: 02/11/2024 Dear Leo Patton MD, A review of the medical record indicates additional documentation may be needed. Please review below and update the documentation accordingly. Clinical Indicators: Per Cardiology consult 02/12/24: presenting with shortness of breath and peripheral edema. Clinically in heart failure. Echocardiograp hy is showing cardiomyopathy with LV dysfunction. Continue IV diuretics. Adding Entresto and spironolactone. Once she is euvolemic we will add beta-andrei. Please provide further specificity regarding the most likely type and acuity of CHF you are evaluatin g, treating, or monitoring. Systolic Please specify if Acute, Chronic, or Acute on chronic, or Unable to determine Diastolic Please specify if Acute, Chronic, or Acute on chronic, or Unable to determine Combined Systolic/Diastolic Please specify if Acute, Chronic, or Acute on chronic, or Unable to determine Other (explain) Clinically unable to determine (explain) Thank you, Brinda Segura RN Use of terms such as suspected, likely, concern for, or probable (associated with a specific diagnosi s that is being evaluated, monitored, or treated as if it exists) are acceptable and can be coded in the inpatient se tting, when documented at the time of discharge. Please use your independent medical judgment in providing your response. THIS QUERY IS PART OF THE PERMANENT MEDICAL RECORD
[2024-02-13] MEDS: acetaZOLAMIDE 250 MG TABLET PO (14:44)
[2024-02-14 07:39] VITALS: BP 116/68; PULSE 87; RESP 18; TEMP 36.6; O2SAT 96
[2024-02-14 08:10] LABS: Anion Gap 15 (12-20); Blood Urea Nitrogen 10 mg/dL (9-16); Calcium 10.2 mg/dL (8.4-10.2); Carbon Dioxide 31 mmol/L (22-29); Chloride 100 mmol/L (96-108); Creatinine Clr Calc Pharmacy 83.7; Estimated Glomerular Filt Rate 57; Glucose Random 96 mg/dL (60-115); Potassium 4.4 mmol/L (3.3-5.1); Sodium 142 mmol/L (135-145)
[2024-02-14 08:12] LABS: B Type Natriuretic Peptide 346 pg/mL (<100)
[2024-02-14] MEDS: Sacubitril/Valsartan 24/26 1 TAB TABLET PO ×2 (08:17→20:58)
[2024-02-14] MEDS: Furosemide 20 MG/2 ML VIAL 40 MG IVPUSH (08:18)
[2024-02-14] MEDS: Empagliflozin 10 MG TABLET PO (08:18)
[2024-02-14] MEDS: Spironolactone 25 MG TABLET PO (08:18)
[2024-02-14] MEDS: 0.9 % Sodium Chloride Flush 3 ML SYRINGE IVFLUSH ×3 (08:18→23:00)
[2024-02-14] MEDS: Aspirin Enteric Coated 81 MG TABLET.DR PO (08:18)
--- NOTE | 2024-02-14 08:34 | PC.NURSE ---
No dressing to lower legs, venous stasis ulcers open to air, patient refused dressing application reporting severe itchiness with dressing on.
--- NOTE | 2024-02-14 11:04 | HO.PM.IMPN ---
Subjective Subjective Date of Service: 02/14/24 Interval History: chf execerebation Review of Systems sob somewhat improving leg edema seems similar Physical Exam Vital Signs: Vital Signs: Last Vital Signs Temp 97.8 F 02/14/24 07:39 Pulse 87 02/14/24 07:39 Resp 18 02/14/24 07:39 BP 116/68 02/14/24 07:39 Pulse Ox 96 02/14/24 07:39 O2 Del Method Room Air 02/14/24 07:39 BMI result Body Mass Index 50.8 General: Not in distress cvs:Regular rate and rhythm, S1-S2 heard. Chest: Air entry fair, has some bibasilar crackles Abdomen soft nontender, no guarding, no rigidity Patient is awake, alert and oriented to self, place, time and person ; no focal motor deficit Bilateral pitting andre Objective Data Active Medications Acetaminophen (Acetaminophen 325 Mg Tablet) 650 mg PO Q6H PRN PRN Reason: Pain, Mild (Pain Scale 1-3), fever or headache Last Admin: 02/13/24 22:31 Dose: 650 mg Documented By: ROBERT Aspirin (Aspirin Enteric Coated 81 Mg Tablet.Dr) 81 mg PO DAILY [facility] Last Admin: 02/14/24 08:18 Dose: 81 mg Documented By: DIONY Calcium Carbonate (Calcium Carbonate 750 Mg Tab.Chew) 750 mg PO Q4H PRN PRN Reason: Heartburn Empagliflozin (Empagliflozin 10 Mg Tablet) 10 mg PO DAILY [facility] Last Admin: 02/14/24 08:18 Dose: 10 mg Documented By: DIONY Enoxaparin Sodium (Enoxaparin Sodium 40 Mg/0.4 Ml Syringe) 40 mg SUBCUT Q12H [facility] Last Admin: 02/13/24 22:32 Dose: 40 mg Documented By: ROBERT Furosemide (Furosemide 20 Mg/2 Ml Vial) 40 mg IVPUSH DAILY [facility]; Protocol Last Admin: 02/14/24 08:18 Dose: 40 mg Documented By: DIONY Magnesium Hydroxide (Milk Of Magnesia 30 Ml Oral.Susp) 30 ml PO DAILY PRN PRN Reason: Constipation Melatonin (Melatonin 3 Mg Tablet) 6 mg PO BEDTIME PRN PRN Reason: Insomnia Ondansetron HCl (Ondansetron Hcl 4 Mg/2 Ml Vial) 4 mg IVPUSH Q8H PRN PRN Reason: Nausea and Vomiting Sacubitril/Valsartan (Sacubitril/Valsartan 1 Tab Tablet) 1 tab PO BID [facility]; Protocol Last Admin: 02/14/24 08:17 Dose: 1 tab Documented By: DIONY Sodium Chloride (0.9 % Sodium Chloride Flush 3 Ml Syringe) 3 ml IVFLUSH QSHIFT BALDEMAR Last Admin: 02/14/24 08:18 Dose: 3 ml Documented By: DIONY Spironolactone (Spironolactone 25 Mg Tablet) 25 mg PO DAILY [facility]; Protocol Last Admin: 02/14/24 08:18 Dose: 25 mg Documented By: DIONY Labs 02/11/24 05:00 02/14/24 06:20 Labs: Laboratory Results - last 24 hr 02/14/24 06:20 Anion Gap 15 Estim Creat Clear Calc 83.7 Estimated GFR 57 Random Glucose 96 Calcium 10.2 D B-Natriuretic Peptide 346 H Assessment and Plan (1) Congestive heart failure (CHF): Status: Acute Plan 59-year-old female with pertinent history of hypertension noncompliant with prescription medications who presents to the emergency department for evaluation of leg swelling and dyspnea. Acute decompensated congestive heart failure(HFrEF): trop flat bnp [id number] echocardiogram Strict I's and O's. Low-salt diet. i/o neg 3.4 liter continue with IV 40 mg daily , spironolactone.. Hypertension: Noncompliant with medications. Monitor with IV diuresis. Optimize and initiate antihypertensives. Obesity: Counseled regarding diet and exercise Elevated troponin, likely type 2 in the setting of increased demand DVT prophylaxis: Lovenox . Full code ongoing inpatient need-hospital stay for IV diuresis, optimization of volume status (as above), which is not possible in a lesser acute setting. Quality Stroke Does the patient have a stroke diagnosis?: No VTE Prior VTE?: No VTE Risk Level:: Medical - moderate - high VTE Device Contraindication: Treatment Not Indicated VTE Drug Contraindication: N/A - Med Ordered
[2024-02-14] MEDS: Enoxaparin Sodium 40 MG/0.4 ML SYRINGE SUBCUT ×2 (11:06→23:00)
[2024-02-14] MEDS: Acetaminophen 325 MG TABLET 650 MG PO (11:10)
--- NOTE | 2024-02-14 12:32 | PM.PNCARD ---
Subjective Subjective Date of Service: 02/14/24 Interval history: Seen examined at bedside. Clinically improving. Still has lower extremity edema. Physical Exam Vital Signs: Last Vital Signs Temp 97.8 F 02/14/24 07:39 Pulse 87 02/14/24 07:39 Resp 18 02/14/24 07:39 BP 116/68 02/14/24 07:39 Pulse Ox 96 02/14/24 07:39 O2 Del Method Room Air 02/14/24 07:39 BMI result Body Mass Index 50.8 GENERAL APPEARANCE: in no acute distress, pleasant. NECK: no carotid bruit, + jugular venous distention. SKIN: no suspicious lesions, warm and dry. HEART: no murmurs, regular rate and rhythm. LUNGS: clear to auscultation bilaterally. ABDOMEN: soft, nontender. EXTREMITIES: 2+ edema. PERIPHERAL PULSES: equal. NEUROLOGIC: No gross deficits, AAO X 3 Objective Labs and Meds 02/11/24 05:00 02/14/24 06:20 Lab results: Laboratory Results - last 24 hr 02/14/24 06:20 Sodium 142 Potassium 4.4 Chloride 100 Carbon Dioxide 31 H Anion Gap 15 BUN 10 Creatinine 1.00 Estim Creat Clear Calc 83.7 Estimated GFR 57 Random Glucose 96 Calcium 10.2 D B-Natriuretic Peptide 346 H Progress Note: A&P Assessment and plan (1) Congestive heart failure (CHF): Status: Acute (2) Hypertension: Status: Acute (3) Cardiomyopathy: Status: Acute Plan [age] year female with background history of left breast cancer status post surgery and chemotherapy approximately 10 years ago presenting with shortness of breath and congestive heart failure. She has severe cardiomyopathy on the echocardiogram. Has been on IV diuretics and responding well to management so far. We have started guideline directed medical therapy with Entresto and spironolactone. Added Jardiance. Start carvedilol 3.125 mg twice a day. Compression stockings. Thank you for allowing me to participate in the care of your patient. Please feel free to contact me if you have any questions. Time Spent With Patient Time: Total time managing care of this patient today ____ minutes. Progress Note: Quality Stroke Does the patient have a stroke diagnosis?: No Procedures Date of Service Date of Service: 02/14/24
[2024-02-14 15:46] VITALS: BP 127/76; PULSE 88; RESP 18; TEMP 36.2; O2SAT 97
--- NOTE | 2024-02-14 17:10 | PC.NURSE ---
Order for knee high compressions TEDS received, patient's calf measures 18inch, will need x-large which are not available, will order.
[2024-02-14 23:47] VITALS: BP 114/62; PULSE 86; RESP 20; TEMP 36.4; O2SAT 97
[2024-02-15 07:18] LABS: Anion Gap 16 (12-20); Blood Urea Nitrogen 11 mg/dL (9-16); Carbon Dioxide 27 mmol/L (22-29); Chloride 102 mmol/L (96-108); Estimated Glomerular Filt Rate > 60; Glucose Random 103 mg/dL (60-115); Sodium 141 mmol/L (135-145)
[2024-02-15 07:29] LABS: B Type Natriuretic Peptide 216 pg/mL (<100)
[2024-02-15] MEDS: Furosemide 20 MG/2 ML VIAL 40 MG IVPUSH (07:40)
[2024-02-15] MEDS: Aspirin Enteric Coated 81 MG TABLET.DR PO (07:40)
[2024-02-15] MEDS: Spironolactone 25 MG TABLET PO (07:41)
[2024-02-15] MEDS: Acetaminophen 325 MG TABLET 650 MG PO (07:41)
[2024-02-15] MEDS: Sacubitril/Valsartan 24/26 1 TAB TABLET PO (07:41)
[2024-02-15] MEDS: Empagliflozin 10 MG TABLET PO (07:41)
[2024-02-15] MEDS: 0.9 % Sodium Chloride Flush 3 ML SYRINGE IVFLUSH (07:42)
[2024-02-15 08:02] VITALS: BP 122/66; PULSE 88; RESP 18; TEMP 36.2; O2SAT 94
--- NOTE | 2024-02-15 11:52 | P.DS_ITS ---
DS: Providers Provider Date of Service: 02/15/24 Date of admission: 02/10/24 22:41 Date of discharge: 02/15/24 Primary care physician: None Physician Consults: 02/12/24 09:00 Consult to Cardiology Routine Consulting Provider: [facility] Reason for consultation: New Chf Has provider been notified: No 02/12/24 12:41 Consult to Wound Care Routine Reason for consultation: LLE redness/weeping Attending physician on discharge: Leo Patton Discharging clinician: Leo Patton DS: Diagnosis Discharge Diagnosis (1) Congestive heart failure (CHF): Status: Acute DS: Summary Hospital Course Hospital Course: HPI:59-year-old female with pertinent history of hypertension noncompliant with prescription medications who presents to the emergency department for evaluation of leg swelling and dyspnea. Patient states her symptoms have been ongoing for the last 2 months. She noticed progressive swelling of her bilateral lower extremities. Also has been having dyspnea which is worse with exertion. Admits orthopnea. States she has not been taking any medications for her high blood pressure. Does not take any prescription medications. No fever, chills, chest pain, palpitations, abdominal pain, changes in urinary or bowel habits. In the emergency department, BNP found to be elevated and imaging with vascular congestion/pulmonary edema. Patient was given IV Lasix [facility] course: Patient was admitted because of leg swelling and dyspnea: Found to have CHF exacerbation: Patient was started on IV diuretics, daily weights, I&O monitoring. With above supportive care patient diuresed almost 3.5 liters , shortness of breath improved, leg swelling also improving. Patient echo shows low ejection fraction. Patient seen by Cardiology: Patient was started on Entresto, Jardiance, spironolactone in addition to Lasix. Patient was also strongly advised to we are compression stockings, leg elevation recommended also. Patient was CHF education given, if weight gain 2 lb or more in a week might need outpatient Lasix adjustment. plan: started on Entresto, Jardiance, spironolactone,coreg-tolerated well. continue lasix 40 mg po daily Monitor BMP closely in a week outpatient. patient will be making her pcp appointment ,also told to go to urgent care if needed lab work or pcp whoever can see her earlier. Cardiology may arrange their own appointment. Assessment plan coordination time spent 40 minute, patient understand and in agreement with the above plan, above was discussed in the presence of staff. Time Attestation Total time managing care of this patient today: 40 mintues. Discharge Coordination Time (in mins): 40 min Specific discharge activities: 40 min Quality: Safe Use of Opioids Does Pt have an Active Cancer Diagnosis on the Problem List?: No Quality: Stroke Does the patient have a stroke diagnosis?: No Physical Exam Vital Signs: Vital Signs: Last Vital Signs Temp 97.2 F 02/15/24 08:02 Pulse 88 02/15/24 08:02 Resp 18 02/15/24 08:02 BP 122/66 02/15/24 08:02 Pulse Ox 94 02/15/24 08:02 O2 Del Method Room Air 02/15/24 08:02 BMI result Body Mass Index 50.8 General: Not in distress cvs:Regular rate and rhythm, S1-S2 heard. Chest: Air entry fair, has some bibasilar crackles Abdomen soft nontender, no guarding, no rigidity Patient is awake, alert and oriented to self, place, time and person ; no focal motor deficit ext edema improving DS: Data Data Completed and Pending Labs on day of discharge: Laboratory Results - last 24 hr 02/15/24 06:26 Sodium 141 Potassium 4.0 Chloride 102 Carbon Dioxide 27 Anion Gap 16 BUN 11 Creatinine 0.92 Estim Creat Clear Calc 91.0 Estimated GFR > 60 Random Glucose 103 Calcium 10.0 B-Natriuretic Peptide 216 H Discharge Plan Discharge Anticipated Discharge Date/Time: 02/15/24 11:38 Patient Disposition: Home, Self-Care Discharge Diagnosis: chf excerebation Referrals: Physician,None [Primary Care Provider] - 1 Week Discharge Medications: New furosemide 40 mg Tablet 40 mg PO DAILY Qty: 60 0RF Protocol: Hold for SBP< HOLD for SBP < : 90 aspirin 81 mg Tablet,Delayed Release (Dr/Ec) 81 mg PO DAILY Qty: 30 0RF spironolactone 25 mg Tablet 25 mg PO DAILY Qty: 60 0RF Protocol: Hold for SBP< HOLD for SBP < : 90 Entresto 24-26 mg Tablet 1 tab PO BID Qty: 120 0RF Protocol: Hold for SBP< HOLD for SBP < : 90 Jardiance 10 mg Tablet 10 mg PO DAILY Qty: 60 0RF (SABINA) T.E.D. Knee Hcysww-A-Hgvg Misc See Rx Instructions .ROUTE .MEDSUPPLY Qty: 12 0RF Rx Instructions: As directed carvedilol [Coreg] 3.125 mg tablet 3.125 mg PO BID Qty: 120 0RF Rx Instructions: must administer with a meal/food Continued acetaminophen [Tylenol] 325 mg Tablet 650 mg PO QID PRN (Reason: Pain) Discontinued aspirin 325 mg Tablet 650 mg PO Q4-6H PRN (Reason: Pain) Discharge Orders: Discharge Order (Routine); Ordered 02/15/24 Ordered By: Leo Patton Diet: Advance to usual diet Activity on Discharge: As tolerated Stand Alone Forms: Patient Portal Discharge page Print Language: Guinean Activity Restrictions/Additional Instructions: Topical Wound Care Recommendations: Left Lower Leg - Elevate lower legs throughout day. encourage patient walking to engage calf pump for fluid management. Cleanse with NS, pat dry. Apply durafiber AG cover with dry gauze abd and wrap. Change Every other day. Recommend follow up out patient Wound Clinic at [address] [place] [address] and to call for an appointment at time of discharge. [phone].? Recommend follow up outpt with OT for Lymphedema and compression therapy. ?[facility] [address] [place] [address] . Care Plan Goals: Patient was admitted because of leg swelling and dyspnea: Found to have CHF exacerbation: Patient was started on IV diuretics, daily weights, I&O monitoring. With above supportive care patient diuresed almost 3.5 liters , shortness of breath improved, leg swelling also improving. Patient echo shows low ejection fraction. Patient seen by Cardiology: Patient was started on Entresto, Jardiance, spironolactone in addition to Lasix. Patient was also strongly advised to we are compression stockings, leg elevation recommended also. Patient was CHF education given, if weight gain 2 lb or more in a week might need outpatient Lasix adjustment. Monitor BMP closely in a week outpatient Cardiology may arrange their own appointment. Health Concerns: As above. Plan of Treatment: As above. Assessment: As above.
[2024-02-15] MEDS: Enoxaparin Sodium 40 MG/0.4 ML SYRINGE SUBCUT (12:43)
--- NOTE | 2024-02-15 12:49 | PM.PNCARD ---
Subjective Subjective Date of Service: 02/15/24 Interval history: Seen examined at bedside. Clinically improving. Continues to have lower extremity edema. Physical Exam Vital Signs: Last Vital Signs Temp 97.2 F 02/15/24 08:02 Pulse 88 02/15/24 08:02 Resp 18 02/15/24 08:02 BP 122/66 02/15/24 08:02 Pulse Ox 94 02/15/24 08:02 O2 Del Method Room Air 02/15/24 08:02 BMI result Body Mass Index 50.8 GENERAL APPEARANCE: in no acute distress, pleasant. NECK: no carotid bruit, no jugular venous distention. SKIN: no suspicious lesions, warm and dry. HEART: no murmurs, regular rate and rhythm. LUNGS: clear to auscultation bilaterally. ABDOMEN: soft, nontender. EXTREMITIES: 1-2 + edema. PERIPHERAL PULSES: equal. NEUROLOGIC: No gross deficits, AAO X 3 Objective Labs and Meds 02/11/24 05:00 02/15/24 06:26 Lab results: Laboratory Results - last 24 hr 02/15/24 06:26 Sodium 141 Potassium 4.0 Chloride 102 Carbon Dioxide 27 Anion Gap 16 BUN 11 Creatinine 0.92 Estim Creat Clear Calc 91.0 Estimated GFR > 60 Random Glucose 103 Calcium 10.0 B-Natriuretic Peptide 216 H Progress Note: A&P Assessment and plan (1) Congestive heart failure (CHF): Status: Acute (2) Hypertension: Status: Acute (3) Cardiomyopathy: Status: Acute Plan 59-year-old female with background history of left breast cancer status post surgery and chemotherapy approximately 10 years ago presenting with shortness of breath and congestive heart failure. She has severe cardiomyopathy on the echocardiogram. Has been on IV diuretics and responding well to management so far. We have started guideline directed medical therapy with Entresto and spironolactone. Added Jardiance. Add carvedilol 3.125 mg twice a day. Compression stockings for legs. We will arrange follow-up. Thank you for allowing me to participate in the care of your patient. Please feel free to contact me if you have any questions. Time Spent With Patient Time: Total time managing care of this patient today ____ minutes. Progress Note: Quality Stroke Does the patient have a stroke diagnosis?: No Procedures Date of Service Date of Service: 02/15/24
--- NOTE | 2024-02-15 12:53 | HO.PM.IMPN ---
Subjective Subjective Date of Service: 02/15/24 Interval History: chf Review of Systems sob improving Physical Exam Vital Signs: Vital Signs: Last Vital Signs Temp 97.2 F 02/15/24 08:02 Pulse 88 02/15/24 08:02 Resp 18 02/15/24 08:02 BP 122/66 02/15/24 08:02 Pulse Ox 94 02/15/24 08:02 O2 Del Method Room Air 02/15/24 08:02 BMI result Body Mass Index 50.8 General: Not in distress cvs:Regular rate and rhythm, S1-S2 heard. Chest: Air entry fair, has some bibasilar crackles Abdomen soft nontender, no guarding, no rigidity Patient is awake, alert and oriented to self, place, time and person ; no focal motor deficit Bilateral pitting andre Objective Data Active Medications Acetaminophen (Acetaminophen 325 Mg Tablet) 650 mg PO Q6H PRN PRN Reason: Pain, Mild (Pain Scale 1-3), fever or headache Last Admin: 02/15/24 07:41 Dose: 650 mg Documented By: SANTOS Aspirin (Aspirin Enteric Coated 81 Mg Tablet.Dr) 81 mg PO DAILY [facility] Last Admin: 02/15/24 07:40 Dose: 81 mg Documented By: SANTOS Calcium Carbonate (Calcium Carbonate 750 Mg Tab.Chew) 750 mg PO Q4H PRN PRN Reason: Heartburn Carvedilol (Carvedilol 3.125 Mg Tablet) 3.125 mg PO BID [facility]; Protocol Empagliflozin (Empagliflozin 10 Mg Tablet) 10 mg PO DAILY [facility] Last Admin: 02/15/24 07:41 Dose: 10 mg Documented By: SANTOS Enoxaparin Sodium (Enoxaparin Sodium 40 Mg/0.4 Ml Syringe) 40 mg SUBCUT Q12H [facility] Last Admin: 02/15/24 12:43 Dose: 40 mg Documented By: SANTOS Furosemide (Furosemide 40 Mg Tablet) 40 mg PO DAILY [facility]; Protocol Magnesium Hydroxide (Milk Of Magnesia 30 Ml Oral.Susp) 30 ml PO DAILY PRN PRN Reason: Constipation Melatonin (Melatonin 3 Mg Tablet) 6 mg PO BEDTIME PRN PRN Reason: Insomnia Ondansetron HCl (Ondansetron Hcl 4 Mg/2 Ml Vial) 4 mg IVPUSH Q8H PRN PRN Reason: Nausea and Vomiting Sacubitril/Valsartan (Sacubitril/Valsartan 1 Tab Tablet) 1 tab PO BID [facility]; Protocol Last Admin: 02/15/24 07:41 Dose: 1 tab Documented By: SANTOS Sodium Chloride (0.9 % Sodium Chloride Flush 3 Ml Syringe) 3 ml IVFLUSH QSHIFT [facility] Last Admin: 02/15/24 07:42 Dose: 3 ml Documented By: SANTOS Spironolactone (Spironolactone 25 Mg Tablet) 25 mg PO DAILY [facility]; Protocol Last Admin: 02/15/24 07:41 Dose: 25 mg Documented By: SANTOS Labs 02/11/24 05:00 02/15/24 06:26 Labs: Laboratory Results - last 24 hr 02/15/24 06:26 Anion Gap 16 Estim Creat Clear Calc 91.0 Estimated GFR > 60 Random Glucose 103 Calcium 10.0 B-Natriuretic Peptide 216 H Assessment and Plan (1) Congestive heart failure (CHF): Status: Acute Plan 59-year-old female with pertinent history of hypertension noncompliant with prescription medications who presents to the emergency department for evaluation of leg swelling and dyspnea. Acute decompensated congestive heart failure(HFrEF): trop flat bnp [id number] echocardiogram Strict I's and O's. Low-salt diet. i/o neg 3.4 liter continue with IV 40 mg daily , spironolactone.. Hypertension: Noncompliant with medications. Monitor with IV diuresis. Optimize and initiate antihypertensives. Obesity: Counseled regarding diet and exercise Elevated troponin, likely type 2 in the setting of increased demand DVT prophylaxis: Lovenox . Full code ongoing inpatient need-hospital stay for IV diuresis, optimization of volume status (as above), which is not possible in a lesser acute setting. Quality Stroke Does the patient have a stroke diagnosis?: No VTE Prior VTE?: No VTE Risk Level:: Medical - moderate - high VTE Device Contraindication: Treatment Not Indicated VTE Drug Contraindication: N/A - Med Ordered
[2024-02-15] MEDS: carvediloL 3.125 MG TABLET PO (13:04)
--- NOTE | 2024-02-15 13:19 | MHC.CM.PN ---
PT CLEARED TO [facility] TODAY WITH NO SERVICES PT IS AWARE SHE NEEDS TO SCHEDULE A NEW PCP APPT SOON POSSIBLE SHE WILL UTILIZE URGENT CARE CLINICS FOR FOLLOW UP IN THE MEANTIME PT WILL ARRANGE TRANSPORT HOME ONCE HER KIDS ARE OUT OF WORK THIS AFTERNOON
[2024-02-15 15:53] VITALS: BP 107/75; PULSE 84; RESP 15; TEMP 36.1; O2SAT 99
[2024-02-15 17:03] VITALS: BP 110/77; PULSE 88
== END 2024-02-15 18:36 | disposition home or self-care (01) | DRG 194 ==
LOC: HO.ED 22:53 → HO.EDOVER 23:42 → HO.S3 02-11 18:58
PROVIDERS: Nurse Practitioner Family; Registered Nurse Emergency; Admitting Provider Student in an Organized Health Care Education/Training Program; Emergency Provider Emergency Medicine; Visit Provider Internal Medicine
DX: I11.0 Hypertensive heart disease with heart failure (principal); I42.9 Cardiomyopathy, unspecified; Z68.43 Body mass index [BMI] 50.0-59.9, adult; E66.9 Obesity, unspecified; Z71.3 Dietary counseling and surveillance; I50.21 Acute systolic (congestive) heart failure; Z85.3 Personal history of malignant neoplasm of breast; Z91.148 Patient's other noncompliance with medication regimen for other reason; Z79.899 Other long term (current) drug therapy
CPT/HCPCS: 36415; 71046; 80048; 80053; 81001; 83880; 84484; 85025; 93005; 93306; 99285; J1650; J1940; Q9957

== ENCOUNTER → 2024-02-10 21:46 | Outpatient (BNV) | payer MEDICAID, SELFPAY | PROVIDERS: Emergency Provider Emergency Medicine; Visit Provider Student in an Organized Health Care Education/Training Program | DX: I50.9 Heart failure, unspecified (principal) | CPT/HCPCS: 99223; 99232; 99239 ==

== ENCOUNTER → 2024-02-10 22:10 | Outpatient (BNV) | payer MEDICAID, SELFPAY | PROVIDERS: Admitting Provider Student in an Organized Health Care Education/Training Program; Emergency Provider Emergency Medicine; Visit Provider Internal Medicine Cardiovascular Disease | DX: I50.9 Heart failure, unspecified (principal); R94.31 Abnormal electrocardiogram [ECG] [EKG] | CPT/HCPCS: 93010 ==

== ENCOUNTER 2024-02-10 22:41 | Outpatient (BNV) | payer MEDICAID, SELFPAY | END 2024-02-12 07:00 | PROVIDERS: Admitting Provider Student in an Organized Health Care Education/Training Program; Emergency Provider Emergency Medicine; Visit Provider Internal Medicine Cardiovascular Disease | DX: I50.9 Heart failure, unspecified (principal); I27.20 Pulmonary hypertension, unspecified | CPT/HCPCS: 93306 ==

== ENCOUNTER → 2024-02-10 22:41 | Outpatient (BNV) | payer MEDICAID, SELFPAY | PROVIDERS: Admitting Provider Student in an Organized Health Care Education/Training Program; Emergency Provider Emergency Medicine; Visit Provider Internal Medicine Cardiovascular Disease | DX: I50.9 Heart failure, unspecified (principal); I10 Essential (primary) hypertension; I42.9 Cardiomyopathy, unspecified | CPT/HCPCS: 99223; 99233 ==

== ENCOUNTER 2024-03-15 13:02 | Outpatient (AMB) | payer MEDICAID, SELFPAY ==
--- OUTSIDE RECORDS SUMMARY | 2024-03-15 13:05 | XMS_ITS | Clinical Summary ---
Author Organization [facility] Address [address] [place] [address] Phone Care Team Providers Care In[employer] Developer Name Role Phone [facility] Unavailable [phone] Reason for Visit and Chief Complaint Established Patient Plan of Treatment Pending Tests Order Diagnosis Results Due Ordering P rovider Follow Up - Appointment PRN Unsp dis p fx of surgical neck of left humerus, init 06/04/22 Michael Tinoco MD Last Documented On 3 11:43AM ; [facility] Assessments Includes: Assessments from this encounter No Assessments Recorded Medical Equipment - Implanted Devices Includes: Current Devices No Medical Equipment Recorded Medications Includes: Medications discussed during this encounter and other current Medications Current Medications (continue as prescribed) Oxycodone Oral Tablet 01/24/2022 Provider: Diagnosis: Last Documented On 2 10:04AM By Teto Juárez ; [facility] Medications Administered Includes: Administered Medications from this encounter No Administered Medications Recorded Vital Signs Includes: Vital Signs from this encounter Vital Name 06/04/2022 10:51A Blood Pressure Sitting (mmHg) 130/88 Pulse Rate-Sitting (bpm) 98 Temp-Tympanic (F) 97.9 Height (in) 64 Weight (lb) 210 Body Mass Index 36 Body Surface Area 2 Oxygen Saturation (%) 98 Last Documented: On 06/04/2022 10:52A M ; [facility] Results Includes: Results discussed during this encounter No Results Recorded For Specified Dates History of Present Illness Includes: History of Present Illness from this encounter No History of Present Illness Recorded Social History No Social History Recorded - Smoking Status Unknown Medical History Includes: Medical History addressed during this encounter No Medical History Recorded Family History Includes: Family History addressed during this encounter No Family History Recorded Review of Systems Includes: Review of Systems from this encounter No Review of Systems Recorded Mental Status Includes: Mental Status from this encounter No Mental Status Recorded Functional Status Includes: Functional Status from this encounter No Functional Status Recorded Physical Exam Includes: Physical Exam from this encounter Encounters Encounter Provider Location Date Check-In Time Check-Out Time Diagnosis Established Patient [facility] 10:20AM 11:45AM Insurance Includes: Active Insurance Policies Plan Name Member ID Group # Subscriber Relationship Effect trinh Dates 1 - Health [employer] - [facility] [place] [id number] KAYLYN Woodson Clinical Notes Includes: Clinical Notes from this encounter * Progress note Date Encounter Last Documented by 06/04/2022 Established Patient Last documen yanci on 06/04/2022; 11:43 AM, Michael Tinoco MD; [facility], Current Medication - Oxycodone Oral Tablet 0 days, 0 refills Physical Findings - Vitals taken 06/04/2022 10:51 am BP-Sitting 130/88 mmHg Pulse Rate-Sitting 98 bpm Temp-Tympanic 97.9 F Height 64 in Weight 210 lbs Body Mass Index 36 kg/m2 Body Surface Area 2 m2 Oxygen Saturation 98 % Chief complaint: Follow-up fracture left proximal humerus History of Present Illness: This is a 57-year-old woman who sustained a displaced fracture of her left proximal humerus on 12/29/2021. We did not see her until 01/24/2022. Nonsurgical treatment was selected. She was last seen here on 04/23/2022. It is also noted that she had inconsistent physical therapy because of transportation issues. Today she reports that she has not done any physical therapy since February. She is unemployed. She is still having some discomfort from her shoulder to her elbow. Physical exam: The left shoulder has no swelling or ecchymosis. Range of motion today shows elevation of about 130 degrees bilaterally. External rotation is 30 degrees bilaterally. Internal rotation is L3 right iliac crest left. Neurovascular exam is intact to the left upper extremity. Imaging: Radiographs of the left shoulder taken today are compared with her images from 04/23/2022. There has been no change in fracture reduction. There is a mildly displaced fracture of the surgical neck with a more significantly displaced fracture of the greater tuberosity. Impression: Fracture left proximal humerus Plan: The patient may continue to increase her activity to tolerance. I discussed the option of additional physical therapy but she declined for now. I told her to expect that she will probably always have some limitation of motion of the left compared to the right shoulder. She may return to the office as needed. Plan StartCited - Unsp disp fx of surgical neck of left humerus, init Follow Up/Appointment: PRN EndCited
--- OUTSIDE RECORDS SUMMARY | 2024-03-15 13:05 | XMS_ITS | Clinical Summary ---
Author Organization [facility] Address [address] [place] [address] Phone Care Team Providers Care Hose Tender Name Role Phone [facility] Un[facility] Unavailable Reason for Visit and Chief Complaint Established Patient Plan of Treatment Pending Tests Order Diagnosis Results Due Ordering P rovider Follow Up - Appointment 1 Month Unsp dis p fx of surgical neck of left humerus, init 04/23/22 Gladis ALANIS Last Documented On 3 10:14AM ; [facility] In House X-Rays - X-Rays Shoulder, left, min of 2 views ([id number]) Unsp disp fx of surgical neck of left humerus, init 04/25/22 Gladis ALANIS Last Documented On 3 10:14AM ; [facility] Assessments Includes: Assessments from this encounter No Assessments Recorded Medical Equipment - Implanted Devices Includes: Current Devices No Medical Equipment Recorded Medications Includes: Medications discussed during this encounter and other current Medications Current Medications (continue as prescribed) Oxycodone Oral Tablet 01/24/2022 Provider: Diagnosis: Last Documented On 2 10:04AM By Teto Juárez ; [facility] Medications Administered Includes: Administered Medications from this encounter No Administered Medications Recorded Vital Signs Includes: Vital Signs from this encounter Vital Name 04/23/2022 10:05A Blood Pressure Sitting (mmHg) 172/92 Pulse Rate-Sitting (bpm) 89 Temp-Temporal 97.2 Height (in) 64 Weight (lb) 210 Body Mass Index 36 Body Surface Area 2 Oxygen Saturation (%) 98 Last Documented: On 04/23/2022 10:05A M ; [facility] Results Includes: Results discussed during this encounter [...] Includes: Review of Systems from this encounter Chief complaint: Left proximal humerus fracture Date of injury: 12/29/2021 History of Present Illness: Patient is a [id number]-ccaumvoi 57-year-old female who fell down a set of stairs on 12/29/2021. She did not seek medical evaluation until 01/10/2022. She was found to have a surgical neck fracture of the left humerus along with a fracture of the greater tuberosity. She has been treated conservatively. She was last seen in the office on 03/04/2022. She was started in physical therapy at that time which she continued until her car broke down. She states she has not gone to physical therapy since . She has since gotten her car back in able to reengage with PT. She is also been taking Celebrex and Robaxin which were prescribed at her last appointment. She states those worked very well until she ran out of the medications. She also complains of severe back pain that began yesterday but she is not concerned about that today. She reports mild left shoulder pain with movement. No other concerns at this time. Physical exam: Well-appearing female in no acute distress found seated on the exam table. Nontender palpation throughout the left shoulder. There is no gross deformity, erythema, ecchymosis or wounds. Her range of motion is extremely limited to about 90 degrees in forward flexion and 60 degrees with abduction. She has difficulty perform internal rotation behind the back and external rotation to about 10 degrees. Title I Instructional Assistant strength and elbow flexion are strong and symmetric is symmetric. Motor and sensory intact distally. Fingertips warm and well-perfused. Imaging: Diagnostic imaging obtained today of the left shoulder 2 views are compared to those from 03/04/2022. There is a surgical neck fracture and greater tuberosity fracture. No change in fracture position. There is good callus formation noted. Impression: Surgical neck fracture of the left humerus complicated by greater tuberosity fracture Plan: - Weightbearing: Weightbearing as tolerated left upper extremity. - Activity/Therapy: Restart physical therapy to reduce stiffness and gain range of motion and functionality, prescription provided. Caution to avoid reinjury - Dressing/DME: None needed - Pain control: Elevate affected extremity; apply ice to affected area; over the counter pain medication such as Tylenol or NSAID's. New prescriptions for Celebrex and Robaxin were provided. Patient advised not to drive while taking Robaxin. - Follow up: 1 month - X-ray at follow up: X-ray left shoulder Patient understands and agrees with this plan. Case discussed with Dr. Beltrán. Mental Status Includes: Mental Status from this encounter No Mental Status Recorded Functional Status Includes: Functional Status from this encounter No Functional Status Recorded Physical Exam Includes: Physical Exam from this encounter Encounters Encounter Provider Location Date Check-In Time Check-Out Time Diagnosis Established Patient Gladis ALANIS [facility] 04/23/19 23 9:20AM 9:57AM Insurance Includes: Active Insurance Policies Plan Name Member ID Group # Subscriber Relationship Effect trinh Dates 1 - Health Safety Net - [facility] [id number] KAYLYN ALMODOVAR Self Clinical Notes Includes: Clinical Notes from this encounter * Progress note Date Encounter Last Documented by 04/23/2022 Established Patient Axel pete on 04/23/2022; 10:14 AM, Gladis ALANIS; [facility] Physical Findings - Vitals taken 04/23/2022 10:05 am BP-Sitting 172/92 mmHg Pulse Rate-Sitting 89 bpm Temp-Temporal 97.2 F Height 64 in Weight 210 lbs Body Mass Index 36 kg/m2 Body Surface Area 2 m2 Oxygen Saturation 98 % Plan StartCited - Unsp disp fx of surgical neck of left humerus, init Follow Up/Appointment: 1 Month In House X-Rays/X-Rays: Shoulder, left, min of 2 views ([id number]) EndCited User Defined 4 Chief complaint: Left proximal humerus fracture Date of injury: 12/29/2021 History of Present Illness: Patient is a [id number]-gxmzqkno 57-year-old female who fell down a set of stairs on 12/29/2021. She did not seek medical evaluation until 01/10/2022. She was found to have a surgical neck fracture of the left humerus along with a fracture of the greater tuberosity. She has been treated conservatively. She was last seen in the office on 03/04/2022. She was started in physical therapy at that time which she continued until her car broke down. She states she has not gone to physical therapy since [place]. She has since gotten her car back in able to reengage with PT. She is also been taking Celebrex and Robaxin which were prescribed at her last appointment. She states those worked very well until she ran out of the medications. She also complains of severe back pain that began yesterday but she is not concerned about that today. She reports mild left shoulder pain with movement. No other concerns at this time. Physical exam: Well-appearing female in no acute distress found seated on the exam table. Nontender palpation throughout the left shoulder. There is no gross deformity, erythema, ecchymosis or wounds. Her range of motion is extremely limited to about 90 degrees in forward flexion and 60 degrees with abduction. She has difficulty perform internal rotation behind the back and external rotation to about 10 degrees. Title I Instructional Assistant strength and elbow flexion are strong and symmetric is symmetric. Motor and sensory intact distally. Fingertips warm and well-perfused. Imaging: Diagnostic imaging obtained today of the left shoulder 2 views are compared to those from 03/04/2022. There is a surgical neck fracture and greater tuberosity fracture. No change in fracture position. There is good callus formation noted. Impression: Surgical neck fracture of the left humerus complicated by greater tuberosity fracture Plan: - Weightbearing: Weightbearing as tolerated left upper extremity. - Activity/Therapy: Restart physical therapy to reduce stiffness and gain range of motion and functionality, prescription provided. Caution to avoid reinjury - Dressing/DME: None needed - Pain control: Elevate affected extremity; apply ice to affected area; over the counter pain medication such as Tylenol or NSAID's. New prescriptions for Celebrex and Robaxin were provided. Patient advised not to drive while taking Robaxin. - Follow up: 1 month - X-ray at follow up: X-ray left shoulder Patient understands and agrees with this plan. Case discussed with Dr. Beltrán.
--- OUTSIDE RECORDS SUMMARY | 2024-03-15 13:05 | XMS_ITS ---
Author Organization [facility] Address [address] [place] [address] Phone Care Team Providers Care Cardiopulmonary Technologist Chief Name Role Phone [facility] Unavailable [phone] Plan of Treatment No Plan of Treatment Recorded Assessments Includes: Assessments for all patient encounters No Assessments Recorded Medical Equipment - Implanted Devices Includes: Current and historical Devices No Medical Equipment Recorded Medications Includes: Current and historical Medications Current Medications (continue as prescribed) Oxycodone Oral Tablet 01/24/2022 Provider: Diagnosis: Last Documented On 10:04AM By Teto Juárez ; [facility] Medications Administered Includes: Administered Medications in patient's chart No Administered Medications Recorded Results Includes: Results from 03/15/2023 through 03/15/2024 No Results Recorded For Specified Dates History of Present Illness History of Present Illness not supported for this document type No History of Present Illness Recorded Social History No Social History Recorded - Smoking Status Unknown Medical History Includes: Medical History in patient's chart No Medical History Recorded Family History Includes: Family History in patient's chart No Family History Recorded Review of Systems Review of Systems not supported for this document type No Review of Systems Recorded Mental Status No Mental Status Recorded Functional Status No Functional Status Recorded Physical Exam Physical Exam not supported for this document type No Physical Exam Recorded Insurance Includes: Active Insurance Policies Plan Name Member ID Group # Subscriber Relationship Effect trinh Dates 1 - Health Safety Net - [facility] [id number] KAYLYN ALMODOVAR Self Clinical Notes Includes: Signed Clinical Notes starting from 03/10/2022 No Clinical Notes Recorded
--- OUTSIDE RECORDS SUMMARY | 2024-03-15 13:05 | XMS_ITS ---
Care Plan - [facility] Created on: March 15, 2024 KAYLYN ALMODOVAR : 1965 Sex: Female Author Organization [facility] Address [address] [place] [address] Phone Care Team Providers Care Plastic Technician Name Role Phone [facility] Unavailable Unavailable
--- OUTSIDE RECORDS SUMMARY | 2024-03-15 13:06 | XMS_ITS | Clinical Summary ---
Author Organization [facility] Address [address] [place] [address] Phone Care Team Providers Care Sr. Payroll Manager Name Role Phone [facility] Un[facility] Unavailable Reason for Visit and Chief Complaint Established Patient Plan of Treatment Pending Tests Order Diagnosis Results Due Ordering P conradovimax Follow Up - Appointment 1 Month Unsp dis p fx of surgical neck of left humerus, init 02/07/22 Angelica Beltrán MD Last Documented On 11:48AM ; [facility] Assessments Includes: Assessments from this encounter No Assessments Recorded Medical Equipment - Implanted Devices Includes: Current Devices No Medical Equipment Recorded Medications Includes: Medications discussed during this encounter and other current Medications Current Medications (continue as prescribed) Oxycodone Oral Tablet 01/24/2022 Provider: Diagnosis: Last Documented On 2 10:04AM By Teto Juárez ; [facility] Medications Administered Includes: Administered Medications from this encounter No Administered Medications Recorded Vital Signs Includes: Vital Signs from this encounter Vital Name 02/07/2022 12:20P Blood Pressure Sitting (mmHg) 102/68 Pulse Rate-Sitting (bpm) 87 Temp-Temporal 98.2 Height (in) 64 Weight (lb) 210 Body Mass Index (kg/m2) 36.0 Body Surface Area (m2) 2.0 Oxygen Saturation (%) 97 Last Documented: On 02/07/2022 12:21P M ; [facility] Results Includes: Results discussed during this encounter [...] Includes: Review of Systems from this encounter CHIEF COMPLAINT Closed surgical neck fracture left humerus with fracture greater tuberosity HISTORY OF PRESENT ILLNESS The patient is a 57-year-old female. She fell down some stairs on December 29, 2021. She did not go to the emergency room until 01/10/2022. X-rays of her left shoulder showed a surgical neck fracture of her left humerus along with a fracture of the greater tuberosity. She was treated with a sling. She is here today for follow- up. CURRENT MEDICATION - Oxycodone Oral Tablet 0 days, 0 refills PHYSICAL FINDINGS - Vitals taken 01/24/2022 10:03 am BP-Sitting R 180/77 mmHg BP Cuff Size Regular Pulse Rate-Sitting 105 bpm Temp-Temporal 97.2 F Height 64 in Weight 250 lbs Body Mass Index 42.9 kg/m2 Body Surface Area 2.15 m2 Oxygen Saturation 98 % Able to demonstrate good range of motion of her hand, forearm and elbow. Also able to demonstrate decent range of motion of her shoulder and able to AB duct to 90 degrees. No significant ecchymoses noted. IMAGING X-rays were taken of her left shoulder in the office today. X-ray shows a surgical neck fracture of the left humerus along with a displaced greater tuberosity fracture.Healing is noted. IMPRESSION Progressing well with proximal humerus fracture. Continue to work with therapy to work on range of motion. Continue to be nonweightbearing. Follow-up in 4 weeks. Start to wean out of the sling in the next 1 week. We discussed the x-ray results and the clinical findings. Mental Status Includes: Mental Status from this encounter No Mental Status Recorded Functional Status Includes: Functional Status from this encounter No Functional Status Recorded Physical Exam Includes: Physical Exam from this encounter No Physical Exam Recorded Encounters Encounter Provider Location Date Check-In Time Check-Out Time Diagnosis Established Patient Angelica Beltrán MD [facility], 022 9:20AM 9:54AM Insurance Includes: Active Insurance Policies Plan Name Member ID Group # Subscriber Relationship Effect trinh Dates 1 - Health Safety Net - [facility] [id number] KAYLYN Woodson Clinical Notes Includes: Clinical Notes from this encounter No Clinical Notes Recorded
--- OUTSIDE RECORDS SUMMARY | 2024-03-15 13:06 | XMS_ITS | Clinical Summary ---
Author Organization [facility] Address [address] [place] [address] Phone Care Team Providers Care Elementary Ell Teacher Name Role Phone [facility] Unavailable Reason for Visit and Chief Complaint Established Patient Plan of Treatment Pending Tests Order Diagnosis Results Due Ordering P rovider Follow Up - Appointment 1 Month Unsp dis p fx of surgical neck of left humerus, init 03/04/22 Elise Padilla PA-C Last Documented On 2 11:24AM ; [facility] In House X-Rays - X-Rays Shoulder, left, min of 2 views ([id number]) Unsp disp fx of surgical neck of left humerus, init 03/06/22 Elise Padilla PA-C Last Documented On 2 11:24AM ; [facility] Assessments Includes: Assessments from this encounter No Assessments Recorded Medical Equipment - Implanted Devices Includes: Current Devices No Medical Equipment Recorded Medications Includes: Medications discussed during this encounter and other current Medications Current Medications (continue as prescribed) Oxycodone Oral Tablet 01/24/2022 Provider: Diagnosis: Last Documented On 2 10:04AM By Teto Juárez ; [facility] Medications Administered Includes: Administered Medications from this encounter No Administered Medications Recorded Vital Signs Includes: Vital Signs from this encounter Vital Name 03/04/2022 10:32A Blood Pressure Sitting R 178/108 Pulse Rate-Sitting (bpm) 110 Temp-Temporal 97.1 Height (in) 64 Weight (lb) 210 Body Mass Index (kg/m2) 36.0 Body Surface Area (m2) 2.0 Oxygen Saturation (%) 99 Last Documented: On 03/04/2022 10:33A M ; [facility] Results Includes: Results discussed during this encounter [...] Check-In Time Check-Out Time Diagnosis Established Patient Elise DOUGLAS [facility], 03/04/20 22 9:40AM 11:22AM Insurance Includes: Active Insurance Policies Plan Name Member ID Group # Subscriber Relationship Effect trinh Dates 1 - Health Safety Net - [facility] [id number] KAYLYN ALMODOVAR Self Clinical Notes Includes: Clinical Notes from this encounter No Clinical Notes Recorded
--- NOTE | 2024-03-15 13:17 | A.OFFVIS_ITS ---
Vital Signs 03/15/24 13:18 Height 5 ft 4 in Weight 252 lb BMI 43.3 BP 120/80 Blood Pressure Location Lt brachial Position Sitting Pulse 88 Pulse Source Monitor Intake Visit Reasons: f/up Intake Note: f/up- chest pain Infant Childcare Provider Required: No Allergies No Known Allergies [No Known Allergies*] Allergy (Verified 02/10/24 13:23) Medication List - Last Reconciled 03/15/24 by Andriy Prakash MD acetaminophen (Tylenol) 650 mg PO QID PRN aspirin 81 mg PO DAILY carvedilol (Coreg) 3.125 mg PO BID compr.stocking,knee,long,small (T.E.D. Knee Smqnzr-Q-Rcpk [facility]) As directed empagliflozin (Jardiance) 10 mg PO DAILY furosemide 40 mg See Protocol PO DAILY sacubitril-valsartan 24-26 mg (Entresto) 1 tab See Protocol PO BID spironolactone 25 mg See Protocol PO DAILY HPI Comments Details: 59-year-old female who is here for follow-up. She was seen in January 2024 wh en she got admitted to [facility] with congestive heart failure. She was diagnosed with severe cardiomyopathy. She had hypertension and was started on guideline directed medical therapy with good blood pressure control and eventually was discharged home. She is back for follow-up today. She is denying any significant shortness of breath. She has some left-sided sharp chest pain off and on which is not exertional. She does not get any pressure- like feeling or heaviness. No orthopnea or PND. Taking medicines regularly. She is saying she ran out of Jardiance today. [facility] Medical History Hypertension Social History Household Members: Other Household Members Other:: son Housing: Apartment Do you presently have visiting nurse or other home services: No Alcohol intake: current Patient Tobacco Use Status: Never used Tobacco Substance Use Type: Marijuana service: No Review of Systems Const Denies chills, Denies fatigue, Denies fever(s), Denies frequent falls, Denies weakness, Denies weight gain and Denies weight loss ENT Reports dizziness Card Reports chest pain, Denies leg edema, Denies lightheadedness, Denies palpitations, Reports dyspnea and Reports dyspnea on exertion Resp Denies cough, Reports dyspnea and Reports dyspnea on exertion GI Denies hematochezia Musc Denies abnormal gait, Denies muscle weakness, Denies numbness, Denies radiating pain into limb and Denies tingling Neuro Denies abnormal gait, Reports dizziness, Denies frequent falls, Denies numbness, Denies tingling and Denies weakness Endo Denies fatigue and Denies palpitations Physical Exam Vital Signs: Last Vital Signs Pulse 88 03/15/24 13:18 BP 120/80 03/15/24 13:18 BMI result Body Mass Index 43.3 GENERAL APPEARANCE: in no acute distress, pleasant. NECK: no carotid bruit, no jugular venous distention. SKIN: no suspicious lesions, warm and dry. HEART: no murmurs, regular rate and rhythm. LUNGS: clear to auscultation bilaterally. ABDOMEN: soft, nontender. EXTREMITIES: Trace edema. PERIPHERAL PULSES: equal. NEUROLOGIC: No gross deficits, AAO X 3 Office Procedures EKG Details: Sinus rhythm 88 beats per minute normal axis, premature ventricular complexes, left ventricular hypertrophy with repolarization changes, QTC 464 milliseconds. [id number], Complete Assessment & Plan Assessment & Plan (1) Cardiomyopathy: Code(s): I42.9 - Cardiomyopathy, unspecified Category: Medical (2) Hypertension: Code(s): I10 - Essential (primary) hypertension Category: Medical Plan Pleasant 59 year female with background history of left breast cancer status post surgery and chemotherapy approximately 10 years ago who recently presented to hospital with congestive heart failure. She was diagnosed with severe cardiomyopathy and was started on guideline directed medical therapy. She is on spironolactone, Entresto, Lasix, Jardiance and carvedilol. Blood pressure is well controlled. Clinically euvolemic. She will continue same medicines for now and we will get repeat echocardiography in 3-4 months. She will see us after that. If echo does not show any recovery then we will arrange diagnostic angiography. If EF is improving then we will leave her on guideline directed medical therapy and reassess in few more months. Discussed with her in detail about salt restriction. Thank you for allowing me to participate in the care of your patient. Please feel free to contact me if you have any questions. Orders: Orders CA echo transthoracic complete 3 Months I42.9 - Cardiomyopathy, unspecified Medications: Refilled aspirin 81 mg PO DAILY 90 tabs 3RF empagliflozin (Jardiance) 10 mg PO DAILY 90 tabs 3RF Coding Level of Care Code Est Pt Level 4 (39797) Diagnoses Cardiomyopathy I42.9 Hypertension I10 CPT Codes EKG - CPT: 59505-[id number], Complete ([id number])
[2024-03-15 13:18] VITALS: BP 120/80; PULSE 88; BMI 43.3
== END 2024-03-15 13:51 | disposition home or self-care (01) ==
PROVIDERS: Visit Provider Internal Medicine Cardiovascular Disease
DX: I42.9 Cardiomyopathy, unspecified (principal); I10 Essential (primary) hypertension
CPT/HCPCS: 93010; 99214

== ENCOUNTER → 2024-03-15 13:02 | Outpatient (BNVA) | payer MEDICAID, SELFPAY | PROVIDERS: Visit Provider Internal Medicine Cardiovascular Disease | DX: I11.0 Hypertensive heart disease with heart failure (principal); I50.9 Heart failure, unspecified; I42.9 Cardiomyopathy, unspecified | CPT/HCPCS: 93005; 99212 ==

== ENCOUNTER 2024-07-14 09:35 | Outpatient (AMB) | payer MEDICAID, SELFPAY ==
--- NOTE | 2024-07-14 09:59 | A.OFFVIS_ITS ---
Vital Signs 07/14/24 10:01 Height 5 ft 4 in Weight 260 lb 2.327 oz BMI 44.6 BP 120/82 Blood Pressure Location Lt brachial Position Sitting Pulse 100 Pulse Source Pulse Oximeter Intake Visit Reasons: 4 mth f/up s/p echo Intake Note: 4 mth f/up- echo not done Insurance Territory Manager Required: No Accompanied by: Self / Same As Patient Allergies No Known Allergies [No Known Allergies*] Allergy (Verified 02/10/24 13:23) Medication List - Last Reconciled 07/14/24 by Andriy Prakash MD acetaminophen (Tylenol) 650 mg PO QID PRN aspirin 81 mg PO DAILY carvedilol (Coreg) 3.125 mg PO BID compr.stocking,knee,long,small (T.E.D. K[place] [facility] [place] As directed empagliflozin (Jardiance) 10 mg PO DAILY furosemide 40 mg See Protocol PO DAILY sacubitril-valsartan 24-26 mg (Entresto) 1 tab See Protocol PO BID spironolactone 25 mg See Protocol PO DAILY HPI Comments Details: 59-year-old female who is here for follow-up. She was seen in January 2024 when she got admitted to [facility] with congestive heart failure. She was diagnosed with severe cardiomyopathy. She had hypertension and was started on guideline directed medical therapy with good blood pressure control and eventually was discharged home. She is back for follow-up today. She is denying any significant shortness of breath. She has some left-sided sharp chest pain off and on which is not exertional. She does not get any pressure- like feeling or heaviness. No orthopnea or PND. Taking medicines regularly. She is saying she ran out of [employer] 07/14/2024: Jud is here for follow-up. Two months ago she lost [employer] insurance because she did not send 1 of the forms in time. She is saying she has been off medications for 2 months and has been getting progressively short of breath. Our plan was to repeat echocardiography in few months to reass ess the ejection fraction but it appears she has not been taking medicines due to insurance issues. She is back with [employer] and asking whether her medications can be renewed. [facility] Medical History Hypertension Social History (Reviewed 07/14/24 @ 10:03 by Erna Mcrae [facility]) Household Members: Other Household Members Other:: son Housing: Apartment Do you presently have visiting nurse or other home services: No Alcohol intake: current Patient Tobacco Use Status: Never used Tobacco Substance Use Type: Marijuana service: No Review of Systems Const Denies chills, Denies fatigue, Denies fever(s), Denies frequent falls, Denies weakness, Denies weight gain and Denies weight loss ENT Denies dizziness Card Denies chest pain, Denies leg edema, Denies lightheadedness, Denies palpitations, Denies dyspnea and Denies dyspnea on exertion Resp Denies cough, Denies dyspnea and Denies dyspnea on exertion GI Denies hematochezia Musc Denies abnormal gait, Denies muscle weakness, Denies numbness, Denies radiating pain into limb and Denies tingling Neuro Denies abnormal gait, Denies dizziness, Denies frequent falls, Denies numbness, Denies tingling and Denies weakness Endo Denies fatigue and Denies palpitations Physical Exam Vital Signs: Last Vital Signs Pulse 100 07/14/24 10:01 BP 120/82 07/14/24 10:01 BMI result Body Mass Index 44.6 GENERAL APPEARANCE: in no acute distress, pleasant. NECK: no carotid bruit, no jugular venous distention. SKIN: no suspicious lesions, warm and dry. HEART: no murmurs, regular rate and rhythm. LUNGS: clear to auscultation bilaterally. ABDOMEN: soft, nontender. EXTREMITIES: Trace edema. PERIPHERAL PULSES: equal. NEUROLOGIC: No gross deficits, AAO X 3 Assessment & Plan Assessment & Plan (1) Cardiomyopathy: Code(s): I42.9 - Cardiomyopathy, unspecified Category: Medical (2) Hypertension: Code(s): I10 - Essential (primary) hypertension Category: Medical Plan Pleasant 59-year-old female who has history of breast cancer status post surgery and chemotherapy 10 years ago who recently was in the hospital with severe cardiomyopathy and congestive heart failure. She was significantly hypertensive at that time. She was diuresed and started on medications but unfortunately lost insurance and has not been taking medications for last 2 months. I am restarting all her medications. We will repeat echocardiography in 3 months. If ejection fraction is improving then we will continue medical treatment. If EF is still low then she needs diagnostic angiography to rule out any significant coronary disease. She gets some pressure-like feeling in the chest off and on but previously her blood pressure was significantly uncontrolled and it was felt that that is playing a role in that. Currently her blood pressure appears to be good. We will restart medications and reassess her in few months. Thank you for allowing me to participate in the care of your patient. Please feel free to contact me if you have any questions. Medications: Refilled empagliflozin (Jardiance) 10 mg PO DAILY 90 tabs 3RF spironolactone 25 mg See Protocol PO DAILY 90 tabs 3RF aspirin 81 mg PO DAILY 90 tabs 3RF carvedilol (Coreg) must administer with a meal/food 3.125 mg PO BID 120 tabs 3RF furosemide 40 mg See Protocol PO DAILY 90 tabs 3RF sacubitril-valsartan 24-26 mg (Entresto) 1 tab See Protocol PO BID 180 tabs 3RF Coding Level of Care Code Est Pt Level 4 (03770) Diagnoses Cardiomyopathy I42.9 Hypertension I10
[2024-07-14 10:01] VITALS: BP 120/82; PULSE 100; BMI 44.6
--- OUTSIDE RECORDS SUMMARY | 2024-07-14 10:42 | XMS_ITS | Clinical Summary ---
Author Organization [employer] Address [address] [facility] [address] [place] [address] Care Team Providers Care Instructor Of Sociology Name Role Phone Unavailable Primary Care Provider Unavailabl e Encounters Date Type Department Care Team Description 06/11/2024 Population Health Risk Score [facility] (C[facility]) Department [address] [facility] [address] [place] [address] Provider, Population Health Generic 05/20/2024 Telephone [facility] MEDICINE [address] [place] [address] Ovidio Barber MD from Last 3 Months Social History Tobacco Use Types Packs/Day Years Used Date Smoking Tobacco: Never Assessed Comments Unknown Sex and Gender Information Value Date Recorded Sex Assigned at Female 01/28/2022 10:21 AM EDT Legal Sex Female 10:21 AM EDT Gender Identity Not on file Sexual Orientation Not on file Plan of Treatment Upcoming Encounters Date Type Department Care Team ([facility] st Contact Info) Description 08/04/2024 9:00 AM EDT Office Visit [facility] MED & PEDS [address] [place] [address] Naila Georges MD [address] [place] [address] Health Maintenance Due Date Last Done Comments CT Colonography 1966 Colonoscopy 1966 Colorectal Cancer Screening 1966 Depression Screening 1966 FIT DNA/Cologuard 1966 FIT 1966 FOBT 1966 HIV Screening 1966 SDOH Screening 1966 Sigmoidoscopy 1966 Alcohol/Substance Use Screening 1978 Tobacco Screening 1978 Hepatitis C Screening 01/02/1984 DTaP/Tdap/Td Vaccines (1 - Tdap) 1985 Hepatitis B Vaccines (1 of 3 - 19+ 3-dose series) 1985 Pap Smear 1987 Pneumococcal Vaccine: 50+ Ye ars (1 of 1 - PCV) 01/02/2016 Zoster Vaccines (1 of 2) 01/02/2016 Mammogram 09/10/2020 09/10/2018 Cervical Cancer Screening 06/10/2023 HPV/Cotest 06/10/2023 06/09/2018 COVID-19 Vaccine (1 - 2023-2 5 season) 2023 Influenza Vaccine (#1) 2023 RSV Patients and Pa tients Aged 60 years or older (1 - 1-dose 75+ series) 2041 HIB Vaccines Aged Out No longer eligi ble based on patient's age to complete this topic HPV Vaccines Aged Out No longer eligi ble based on patient's age to complete this topic Hepatitis A Vaccines Aged Out No long er eligible based on patient's age to complete this topic IPV Vaccines Aged Out No longer eligi ble based on patient's age to complete this topic Meningococcal Vaccine Aged Out No irma leida eligible based on patient's age to complete this topic RSV under 20 months Aged Out No longe r eligible based on patient's age to complete this topic Rotavirus Vaccines Aged Out No longer eligible based on patient's age to complete this topic Procedures Procedure Name Priority Date/Time Associated Diagnosis Comments MAMMOGRAM GENERIC Routine 09/10/2018 11: 22 AM EDT JUDE HISTORICAL HPV MRNA E6/E7 Routine 06/09/2018 10:17 AM EDT from Last 3 Months or Most Recently Relevant to Health Maintenance Results * 3D UNILA SCREENING MAMMO 1 (09/10/2018 11:22 AM EDT) Anatomical Region Laterality Modality Breast Bilateral Mammography 09/10/2018 11:2 2 AM EDT Narrative 09/10/2018 11:23 AM EDT Refer to the Notes tab for result details [facility] Procedure: 3D UNILA SCREENING MAMMO 1 Procedure Note Provider, Job, - 06/22/2022 Refer to the Notes tab for result details Legacy Procedure: 3D UNILA SCREENING MAMMO 1 us Naila Georges MD IM BI PROCEDURES Final Result * HPV mRNA E6/E7 (06/09/2018 10:17 AM EDT) HPV mRNA E6/E7 Not Detected NOT DETECTED [facility] Comment: This test was performed using the APTIMA(R) HPV Assay ([employer] This assay detects E6/E7 viral messenger RNA (mRNA) from 14 high-risk HPV types (16,18,31,33,35,39,45,51, 52,56,58,59,66,68). For additional information please refer to: http://education.Socialance/faq/BHL955z2 (This link is being provided for informational/ educational purposes only.) The analytical performance characteristics of this assay have been determined by [facility] [place], [place]. The modifications have not been cleared or approved by the FDA. This assay has been validated pursuant to the CLIA regulations and is used for clinical purposes. Test Performed by [facility], [facility] [place], [address] [place] [address] Dalton Poon M.D., Ph.D., Director of Laboratories , CLIA [id number] Please note: ??Effective 12/11/2015, HPV testing will be performed using [employer]'s APTIMA test which targets mRNA. Detecting mRNA instead of DNA, as in older methods, offers significant improvements in specificity. 06/09/2018 10:1 7 AM EDT us Naila Georges MD HISTORICAL/NON ORDERABLE LABS Fi nal Result [facility] [address] from Last 3 Months or Most Recently Relevant to Health Maintenance Insurance [facility] [address] [place] [id number]
--- OUTSIDE RECORDS SUMMARY | 2024-07-14 10:42 | XMS_ITS | Clinical Summary ---
Author Organization [facility] Address [address] [place] [address] Care Team Providers Care Beauty Operator Apprentice Name Role Phone Unavailable Primary Care Provider Unavailabl e Social History Tobacco Use Types Packs/Day Years Used Date Smoking Tobacco: Never Assessed Comments Unknown Sex and Gender Information Value Date Recorded Sex Assigned at Not on file Legal Sex Female 2:02 PM EST Gender Identity Not on file Sexual Orientation Not on file Plan of Treatment Health Maintenance Due Date Last Done Comments Breast Cancer Screening 1966 DTaP,Tdap,and Td Vaccines (1 - Tdap) 1985 Hepatitis B Vaccines (1 of 3 - 19+ 3-dose series) 1985 Cervical Cancer Screening: P ap Smear 1987 Pneumococcal Vaccine: 50+ Ye ars (1 of 1 - PCV) 01/02/2016 Zoster Vaccines (1 of 2) 01/02/2016 Colorectal Cancer Screening: Colonoscopy 02/27/2022 Depression Screening 02/27/2022 HIV Screening 02/27/2022 Hepatitis C Screening 02/27/2022 Social Influencers of Health Screening 02/27/2022 COVID-19 Vaccine (2023-2 5 season) 2023 Influenza Vaccine (Season Ended) 2024 HIB Vaccines Aged Out No longer eligi [...] on patient's age to complete this topic MMR Vaccines Aged Out No longer eligi ble based on patient's age to complete this topic Meningococcal ACWY Vaccine Aged Out N o longer eligible based on patient's age to complete this topic Meningococcal B Vaccine Aged Out No l onger eligible based on patient's age to complete this topic Pneumococcal Vaccine: Pediat rics (0 to 5 Years) and At-Risk Patients (6 to 64 Years) Aged Out No longer eligible b ased on patient's age to complete this topic RSV Immunization Patients Un max 20 months Aged Out No longer eligible b ased on patient's age to complete this topic Varicella Vaccines Aged Out No longer eligible based on patient's age to complete this topic
--- OUTSIDE RECORDS SUMMARY | 2024-07-14 10:42 | XMS_ITS ---
Care Plan - [facility] Created on: July 14, 2024 KAYLYN ALMODVOAR : 1965 Sex: Female Author Organization [facility] Address [address] [place] [address] Phone Care Team Providers Care Information Technology Project Manager Name Role Phone [facility] Unavailable Unavailable
--- OUTSIDE RECORDS SUMMARY | 2024-07-14 10:42 | XMS_ITS | Encounter Summary ---
Author Organization [employer] [facility] Address [address] [facility] [address] [place] [address] Care Team Providers Care Grommet Machine Operator Name Role Phone Unavailable Primary Care Provider Unavailabl e Encounter Details Date Type Department Care Team (Late st Contact Info) Description 05/20/2024 Telephone [facility] MEDICINE [address] [place], [place] [phone] Ovidio Barber MD [address] [place], [place] [phone] Social History Tobacco Use Types Packs/Day Years Used Date Smoking Tobacco: Never Assessed Comments Unknown Sex and Gender Information Value Date Recorded Sex Assigned at Female 01/28/2022 10:21 AM EDT Legal Sex Female 10:21 AM EDT Gender Identity Not on file Sexual Orientation Not on file documented as of this encounter Miscellaneous Notes * Telephone Encounter - Jami Gallegos - 05/20/2024 11:00 AM EST TC from caller requesting NEW PATIENT visit . DX : Congestive heart failure High blood pressure Medical Concern: Insurance name : Location : [facility] Demographic information updated documented in this encounter Plan of Treatment Upcoming Encounters Date Type Department Care Team (Late st Contact Info) Description 08/04/2024 9:00 AM EDT Office Visit [facility] MED & PEDS [address] [place], [place] [phone] Naila Georges MD [address] [place], [place] [phone] documented as of this encounter Visit Diagnoses Not on filedocumented in this encounter
--- OUTSIDE RECORDS SUMMARY | 2024-07-14 10:43 | XMS_ITS | Clinical Summary ---
Author Organization [facility] Address [address] [place] [address] Phone Care Team Providers Care Hvac Field Service Technician Name Role Phone [facility] Unavailable Unavailable Reason for Visit and Chief Complaint Established Patient Plan of Treatment No Plan of Treatment Recorded Assessments Includes: Assessments from this encounter No Assessments Recorded Medical Equipment - Implanted Devices Includes: Current Devices No Medical Equipment Recorded Medications Includes: Medications discussed during this encounter and other current Medications Current Medications (continue as prescribed) Oxycodone Oral Tablet 01/24/2022 Provider: Diagnosis: Last Documented On 10:04AM By Teto Juárez ; [facility] Medications Administered Includes: Administered Medications from this encounter No Administered Medications Recorded Results Includes: Results discussed during this encounter [...] from this encounter No Physical Exam Recorded Insurance Includes: Active Insurance Policies Plan Name Member ID Group # Subscriber Relationship Effect trinh Dates 1 - Health Safety Net - [facility] [id number] KAYLYN ALMODOVAR Self Clinical Notes Includes: Clinical Notes from this encounter No Clinical Notes Recorded
--- OUTSIDE RECORDS SUMMARY | 2024-07-14 10:43 | XMS_ITS | Clinical Summary ---
Author Organization [facility] Address [address] [place] [address] Phone Care Team Providers Care Eyewear Manufacturing Supervisor Name Role Phone [facility] [phone] Reason for Visit and Chief Complaint Established Patient Plan of Treatment Pending Tests Order Diagnosis Results Due Ordering P rovider Follow Up - Appointment PRN Unsp dis p fx of surgical neck of left humerus, init 06/04/22 Michael Tinoco MD Last Documented On 3 11:43AM ; [facility] Assessments Includes: Assessments from this encounter No Assessments Recorded Medical Equipment - Implanted Devices Includes: Current Devices No Medical Equipment Recorded Medications Includes: Medications discussed during this encounter and other current Medications Current Medications (continue as prescribed) Oxycodone Oral Tablet 01/24/2022 Provider: Diagnosis: Last Documented On 2 10:04AM By Teto Juárez ; [facility] Medications Administered Includes: Administered Medications from this encounter No Administered Medications Recorded Vital Signs Includes: Vital Signs from this encounter Vital Name 06/04/2022 10:51A Blood Pressure Sitting (mmHg) 130/88 Pulse Rate-Sitting (bpm) 98 Temp-Tympanic (F) 97.9 Height (in) 64 Weight (lb) 210 Body Mass Index 36 Body Surface Area 2 Oxygen Saturation (%) 98 Last Documented: On 06/04/2022 10:52A M ; [facility] Results Includes: Results discussed during this [...] Time Diagnosis Established Patient [facility] Tinoco [facility] 06/05/19 10:20AM 11:45AM Insurance Includes: Active Insurance Policies Plan Name Member ID Group # Subscriber Relationship Effect trinh Dates 1 - Health Safety Net [place] [facility] [place] [id number] KAYLYN Woodson Clinical Notes Includes: Clinical Notes from this encounter * Progress note Date Encounter Last Documented by 06/04/2022 Established Patient Last documen yanci on 06/04/2022; 11:43 AM, Michael Tinoco MD; [facility], Current Medication - Oxycodone Oral Tablet 0 [...]
--- OUTSIDE RECORDS SUMMARY | 2024-07-14 10:43 | XMS_ITS | Clinical Summary ---
Author Organization [place] [facility] Address [address] [place] [address] Phone Care Team Providers Care Sleeve Separator Name Role Phone [facility] Un[facility] Unavailable Reason for Visit and Chief Complaint Established Patient Plan of Treatment Pending Tests Order Diagnosis Results Due Ordering P conradovimax Follow Up - Appointment 1 Month Unsp dis p fx of surgical neck of left humerus, init 02/07/22 Angelica Beltrán MD Last Documented On 11:48AM ; [facility] Assessments Includes: Assessments from this encounter No Assessments Recorded Medical Equipment - Implanted Devices Includes: Current Devices No Medical Equipment Recorded Medications Includes: Medications discussed during this encounter and other current Medications Current Medications (continue as prescribed) Oxycodone Oral Tablet 01/24/2022 Provider: Diagnosis: Last Documented On 2 10:04AM By Teto Juárez ; [facility] Medications Administered Includes: Administered Medications [...] Last Documented: On 02/07/2022 12:21P M ; [facility] Results Includes: Results discussed during [...] Time Diagnosis Established Patient Angelica Beltrán MD [facility], 022 9:20AM 9:54AM Insurance Includes: Active Insurance Policies Plan Name Member ID Group # Subscriber Relationship Effect trinh Dates 1 - Health Safety Net - [facility] [id number] KAYLYN Woodson Clinical Notes Includes: Clinical Notes from this encounter No Clinical Notes Recorded
--- OUTSIDE RECORDS SUMMARY | 2024-07-14 10:43 | XMS_ITS | Clinical Summary ---
Author Organization [place] [facility] Address [address] [place] [address] Phone Care Team Providers Care Director Stage Name Role Phone [facility] Unavailable Reason for Visit and Chief Complaint Established Patient Plan of Treatment Pending Tests Order Diagnosis Results Due Ordering P rovider Follow Up - Appointment 1 Month Unsp dis p fx of surgical neck of left humerus, init 03/04/22 Elise Padilla PA-C Last Documented On 2 11:24AM ; [facility] In House X-Rays - X-Rays Shoulder, left, min of 2 views ([id number]) Unsp disp fx of surgical neck of left humerus, init 03/06/22 Elise Padilla PA-C Last Documented On 2 11:24AM ; [facility] Assessments Includes: Assessments from this encounter No Assessments Recorded Medical Equipment - Implanted Devices Includes: Current Devices No Medical Equipment Recorded Medications Includes: Medications discussed during this encounter and other current Medications Current Medications (continue as prescribed) Oxycodone Oral Tablet 01/24/2022 Provider: Diagnosis: Last Documented On 2 10:04AM By Teto Juárez ; [facility] Medications Administered Includes: Administered Medications from this encounter No Administered Medications Recorded Vital Signs Includes: Vital Signs from this encounter Vital Name 03/04/2022 10:32A Blood Pressure Sitting R 178/108 Pulse Rate-Sitting (bpm) 110 Temp-Temporal 97.1 Height (in) 64 Weight (lb) 210 Body Mass Index (kg/m2) 36.0 Body Surface Area (m2) 2.0 Oxygen Saturation (%) 99 Last Documented: On 03/04/2022 10:33A M ; [facility] Results Includes: Results discussed during this [...] Diagnosis Established Patient Elise DOUGLAS [facility], 03/04/20 22 9:40AM 11:22AM Insurance Includes: Active Insurance Policies Plan Name Member ID Group # Subscriber Relationship Effect trinh Dates 1 - Health Safety Net - [facility] [id number] KAYLYN ALMODOVAR Self Clinical Notes Includes: Clinical Notes from this encounter No Clinical Notes Recorded
--- OUTSIDE RECORDS SUMMARY | 2024-07-14 10:43 | XMS_ITS ---
Author Organization [facility] Address [address] [place] [address] Phone Care Team Providers Care Aquaculture And Fisheries Professor Name Role Phone [facility] Unavailable [phone] Plan of Treatment No Plan of Treatment Recorded Assessments Includes: Assessments for all patient encounters No Assessments Recorded Medical Equipment - Implanted Devices Includes: Current and historical Devices No Medical Equipment Recorded Medications Includes: Current and historical Medications Current Medications (continue as prescribed) Oxycodone Oral Tablet 01/24/2022 Provider: Diagnosis: Last Documented On 10:04AM By Teto Juárez ; [facility] Medications Administered Includes: Administered Medications in patient's chart No Administered Medications Recorded Results Includes: Results from 07/15/2023 through 07/14/2024 No Results Recorded For Specified Dates History [...] Dates 1 - Health Safety Net - [facility] [id number] KAYLYN ALMODOVAR Self Clinical Notes Includes: Signed Clinical Notes starting from 03/10/2022 No Clinical Notes Recorded
--- OUTSIDE RECORDS SUMMARY | 2024-07-14 10:43 | XMS_ITS | Clinical Summary ---
Author Organization [facility] Address [address] [place] [address] Phone Care Team Providers Care Demand Inspector Name Role Phone [facility] Un[facility] Unavailable Reason for Visit and Chief Complaint Established Patient Plan of Treatment Pending Tests Order Diagnosis Results Due Ordering P rovider Follow Up - Appointment 1 Month Unsp dis p fx of surgical neck of left humerus, init 04/23/22 Gladis ALANIS Last Documented On 3 10:14AM ; [facility] In House X-Rays - X-Rays Shoulder, left, min of 2 views ([id number]) Unsp disp fx of surgical neck of left humerus, init 04/25/22 Gladis ALANIS Last Documented On 3 10:14AM ; [facility] Assessments Includes: Assessments from this encounter No Assessments Recorded Medical Equipment - Implanted Devices Includes: Current Devices No Medical Equipment Recorded Medications Includes: Medications discussed during this encounter and other current Medications Current Medications (continue as prescribed) Oxycodone Oral Tablet 01/24/2022 Provider: Diagnosis: Last Documented On 2 10:04AM By Teto Juárez ; [facility] Medications Administered Includes: Administered Medications from this encounter No Administered Medications Recorded Vital Signs Includes: Vital Signs from this encounter Vital Name 04/23/2022 10:05A Blood Pressure Sitting (mmHg) 172/92 Pulse Rate-Sitting (bpm) 89 Temp-Temporal 97.2 Height (in) 64 Weight (lb) 210 Body Mass Index 36 Body Surface Area 2 Oxygen Saturation (%) 98 Last Documented: On 04/23/2022 10:05A M ; [facility] Results Includes: Results discussed during this [...] History of Present Illness: Patient is a [id number] 57-year-old female who fell down a set [...] and external rotation to about 10 degrees. Impress Associate strength and elbow flexion are strong and [...] Check-Out Time Diagnosis Established Patient Gladis ALANIS [facility] 04/23/19 23 9:20AM 9:57AM Insurance Includes: Active Insurance Policies Plan Name Member ID Group # Subscriber Relationship Effect trinh Dates 1 - [employer] - [facility] [id number] KAYLYN ALMODOVAR Self Clinical Notes Includes: Clinical Notes from this encounter * Progress note Date Encounter Last Documented by 04/23/2022 Established Patient Axel pete on 04/23/2022; 10:14 AM, Gladis ALANIS; [facility] Physical Findings - Vitals taken 04/23/2022 10:05 [...] X-Rays/X-Rays: Shoulder, left, min of 2 views ([id number]) EndCited User Defined 4 Chief complaint: Left proximal humerus fracture Date of injury: 12/29/2021 History of Present Illness: Patient is a [id number] 57-year-old female who fell down a set [...] has not gone to physical therapy since Wil[place]. She has since gotten her car back [...] and external rotation to about 10 degrees. Impress Associate strength and elbow flexion are strong and [...]
== END 2024-07-14 10:28 | disposition home or self-care (01) ==
PROVIDERS: PCP Student in an Organized Health Care Education/Training Program; Visit Provider Internal Medicine Cardiovascular Disease
DX: I42.9 Cardiomyopathy, unspecified (principal); I10 Essential (primary) hypertension
CPT/HCPCS: 99214

== ENCOUNTER → 2024-07-14 09:35 | Outpatient (BNVA) | payer MEDICAID, SELFPAY | PROVIDERS: Visit Provider Internal Medicine Cardiovascular Disease | DX: I10 Essential (primary) hypertension (principal); I42.9 Cardiomyopathy, unspecified | CPT/HCPCS: 99212 ==

== ENCOUNTER 2024-10-25 09:12 | Outpatient (REF) | payer MEDICAID, SELFPAY ==
--- OUTSIDE RECORDS SUMMARY | 2024-10-25 09:55 | XMS_ITS | Clinical Summary ---
Author Organization [facility] ity Address [address] [place] [address] Care Team Providers Care Import Coordinator Name Role Phone Unavailable Primary Care Provider [...] 2) 01/02/2016 Colorectal Cancer Screening: Colonoscopy 02/27/2022 HIV Screening 02/27/2022 Hepatitis C Screening 02/27/2022 Social Influencers of Health Screening 02/27/2022 COVID-19 Vaccine (1 - 2023-2 5 season) 2023 Depression Screening 03/31/2024 Influenza Vaccine (#1) 2024 HIB Vaccines Aged Out No longer [...]
--- OUTSIDE RECORDS SUMMARY | 2024-10-25 09:55 | XMS_ITS | Encounter Summary ---
Author Organization [employer] Address [address] [facility] [address] [place] [address] Care Team Providers Care Highway Landscape Architect Name Role Phone Naila Georges MD Primary Care Provider [phone] Encounter Details Date Type Department Care Team (Late Contact Info) Description 05/20/2024 Telephone [facility] MEDICINE [address] [place] [address] Ovidio Barber MD [address] [place], [place] [phone] Social History Tobacco Use Types Packs/Day Years Used Date Smoking Tobacco: Never Assessed Comments Unknown Sex and Gender Information Value Date Recorded Sex Assigned at Female 01/28/2022 10:21 AM EDT Legal Sex Female 10:21 AM EDT Gender Identity Female 08/03/2024 10:37 AM EDT Sexual Orientation Don't know 08/03/2024 10 :37 AM EDT documented as of this encounter Miscellaneous Notes * Telephone Encounter - Jami Gallegos - 05/20/2024 11:00 AM EST TC from caller requesting NEW PATIENT visit . DX : Congestive heart failure High blood pressure Medical Concern: Insurance name : Location : [facility] Demographic information updated documented in this encounter Plan of Treatment Upcoming Encounters Date Type Department Care Team (Late Contact Info) Description 11/08/2024 10:00 AM EDT Office Visit [facility] CHC MED & PEDS [address] [place] [address] Naila Georges MD [address] [place] [address] documented as of this encounter Visit Diagnoses Not on filedocumented in this encounter Care Teams Highway Landscape Architect Relationship Specialty Start Date End Date Naila Georges MD [address] [place] [address] PCP - General Family Medicine 08/04/24 documented as of this encounter
== END 2024-10-25 09:13 | disposition home or self-care (01) ==
LOC: HO.MAMMO 09:12
PROVIDERS: PCP Student in an Organized Health Care Education/Training Program; Visit Provider Student in an Organized Health Care Education/Training Program
DX: Z12.31 Encounter for screening mammogram for malignant neoplasm of breast (principal)
CPT/HCPCS: 77063; 77067

== ENCOUNTER → 2024-10-25 09:30 | Outpatient (BNV) | payer MEDICAID, SELFPAY | PROVIDERS: PCP Student in an Organized Health Care Education/Training Program; Visit Provider Internal Medicine | DX: Z12.31 Encounter for screening mammogram for malignant neoplasm of breast (principal) | CPT/HCPCS: 77063; 77067 ==

== ENCOUNTER → 2024-11-22 08:37 | Outpatient (REF) | payer MEDICAID, SELFPAY ==
--- NOTE | 2024-11-22 08:39 | CA_ITS ---
Transthoracic Echocardiogram Patient (Last, First, Middle): Malissa Lui, Gender: F Date of : 1965 Age: 59 Procedure Date: 11/22/2024 Procedure Type: Transthoracic Echocardiogram Location: OP Height: 162.56 cm Weight: 119.75 kg BSA: 2.20 m2 Heart Rate: bpm BP: 124 / 80 mmHg Furs Salesperson: Referring MD: Andriy Prakash MD Sand Caster Apprentice: Andriy Prakash MD Symptoms: I42.9 - Cardiomyopathy, unspecified Study Quality: Adequate with Contrast ECG Rhythm: Sinus Conclusions: - Moderately increased left ventricular cavity size. There is moderately increased left ventricular wall thickness. The left ventricular systolic function is severely decreased. The visually estimated ejection fraction is between 20-25%. - Elevated filling pressures. - Normal right ventricular cavity size and systolic function. - There is mild dilatation of the ascending aorta measuring 3.60 cm. Findings Procedure Information Contrast agent, definity, is being given per protocol without apparent complications. Left Ventricle Moderately increased left ventricular cavity size. There is moderately increased left ventricular wall thickness. The left ventricular systolic function is severely decreased. The visually estimated ejection fraction is between 20-25%. There is moderate global hypokinesis. Abnormal diastolic function is noted. Spectral Doppler is indicative of an impaired relaxation filling pattern. Elevated filling pressures. Right Ventricle Normal right ventricular cavity size and systolic function. Atria The left atrium is normal in size. The right atrium is normal in size. Aortic Valve Normal aortic valve structure and function. There is no aortic valve stenosis. There is trace (trivial) aortic valve regurgitation. Mitral Valve The mitral valve appears normal. There is trace mitral valve regurgitation. There is no mitral valve stenosis. Pulmonic Valve The pulmonic valve is normal. There is trace pulmonic valve regurgitation. Tricuspid Valve Normal tricuspid valve structure. There is no tricuspid valve regurgitation. Normal right atrial pressure. There is no evidence of pulmonary hypertension. Great Vessels There is mild dilatation of the ascending aorta measuring 3.60 cm. The visualized portions of the pulmonary artery and branches are normal. Venous The inferior vena cava is normal in size and collapses greater than 50% with inspiration. Pericardium/Pleural There is no evidence of pericardial effusion. Prior Study Comparison Changes noted compared to prior study dated: 02/12/2024. LV moderately dilated. Measurements 2D Linear Measurements IVSd: 1.25 0.6-0.9/0.6-1.0 cm LVIDd: 6.07 3.9-5.3/4.2-5.9 cm LVIDd Index: 2.76 2.4-3.2/2.2-3.1 cm/m2 LVIDs: 5.10 2.0-3.6 cm LVPWd: 1.27 0.7-1.1 cm Ao Root: 2.90 2.1-3.5 cm LA Diam: 4.20 2.7-3.8/3.0-4.0 cm LAIDs Index: 1.91 1.5-2.3 cm/m2 LV Mass: 426.60 67-162/88-224 g LV Mass Index: 193.91 43-95/49-115 g/m2 LVOT Diam: 2.10 3.0+(-)1.3 cm 2D Systolic Function EF 4C: 27.40 >55% EF 2C: 42.90 >55% EF BiP: 36.40 >55% Mitral Valve MV VTI: 0.21 MV Pk Cesar: 1.06 MV Mn Cesar: 0.68 MV Pk Grad: 4.00 MV Mn Grad: 2.00 MV Pk E: 0.80 MV PK A: 0.96 MV Decel Time: 109.00 E/A: 0.80 E'Lateral: 7.51 E'Medial: 3.59 E/E' Med: 22.30 E/E' Lat: 10.70 PHT: 32.00 MVA PHT: 6.88 MVA Continuity: 2.50 Decel [place]: 7.36 Aortic Valve AoV Pk Cesar: 1.59 AoV Mn Cesar: 1.14 AoV VTI: 0.24 AoV Pk Grad: 10.00 Aov Mn Grad: 6.00 KRISTI Cont.VTI: 2.13 LVOT LVOT Pk Cesar: 0.78 LVOT Mn Cesar: 0.60 LVOT VTI: 0.15 LVOT Pk Grad: 2.00 LVOT Mn Grad: 2.00 LVOT Diam: 2.10 LVOT Area: 3.46 Diastolic Function MV Pk E: 0.80 MV Pk A: 0.96 E/A: 0.80 E'Medial: 3.59 E/E' Med: 22.30 E' Laterial: 7.51 E/E' Lat: 10.70 Right Ventricle TAPSE (mm): 18.00 TVS' Cesar: 11.00 Tricuspid Valve TR Pk Cesar: 1.87 TR Pk Grad: 14.00 RA Press: 3.00 RVSP: 17.00 Great Vessels Aorta Ao Root-2D: 2.90 2.0-3.7 cm Ao Asc: 3.60 2.1-3.4 cm Pulmonary Valve PV Pk Cesar: 1.21 Peak PV Grad: 6.00 Updated in Other Vendor System with Status of Final Andriy Prakash MD electronically signed on 11/24/2024 9:19:35 AM with status of Final
--- OUTSIDE RECORDS SUMMARY | 2024-11-22 09:03 | XMS_ITS | Encounter Summary ---
Author Organization [employer] Address [address] [facility] [address] [place] [address] Care Team Providers Care Machine Operator Packaging Name Role Phone Naila Georges MD Primary Care Provider [phone] Encounter Details Date Type Department Care Team (Late Contact Info) Description 05/20/2024 Telephone [facility] MEDICINE [address] [place] [address] Ovidio Barber MD [address] [place], [place] [phone] Social History Tobacco Use Types Packs/Day Years [...] Medical Concern: Insurance name : Location : [facility] Demographic information updated documented in this encounter Plan of Treatment Upcoming Encounters Date Type Department Care Team (Late Contact Info) Description 12/09/2024 9:30 AM EDT Office Visit [facility] CHC MED & PEDS [address] [place] [address] Naila Georges MD [address] [place] [address] documented as of this encounter Visit Diagnoses Not on filedocumented in this encounter Care Teams Machine Operator Packaging Relationship Specialty Start Date End Date Naila Georges MD [address] [place] [address] PCP - General Family Medicine 08/04/24 documented as of this encounter
--- OUTSIDE RECORDS SUMMARY | 2024-11-22 09:03 | XMS_ITS | Clinical Summary ---
Author Organization [facility] ity Address [address] [place] [address] Care Team Providers Care Jackscrew Man Name Role Phone Unavailable Primary Care Provider [...]
== END ==
LOC: HO.CARD 08:37
PROVIDERS: Visit Provider Internal Medicine Cardiovascular Disease
DX: I42.9 Cardiomyopathy, unspecified (principal)
CPT/HCPCS: 93306; Q9957

== ENCOUNTER → 2024-11-22 08:39 | Outpatient (BNV) | payer MEDICAID, SELFPAY | PROVIDERS: Visit Provider Internal Medicine Cardiovascular Disease | DX: I42.8 Other cardiomyopathies (principal) | CPT/HCPCS: 93306 ==

== ENCOUNTER 2024-12-08 10:38 | Outpatient (REF) | payer MEDICAID, SELFPAY ==
--- NOTE | ~2024-12-08 | MM_ITS ---
EXAMINATION: MM DIAGNOSTIC DIGITAL BREAST TOMOSYNTHESIS, RIGHT Limited right breast ultrasound. CLINICAL INFORMATION: History of left mastectomy. Call back from screening for asymmetry in the right breast. COMPARISON: Mammography: Priors on PACS. TECHNIQUE: Digital breast tomosynthesis is performed in both the craniocaudal and mediolateral oblique views along with computer-aided detection (CAD). Synthesized 2D images are generated from the tomosynthesis. FINDINGS: There are scattered areas of fibroglandular density (ACR BI-RADS breast composition Category b). Previously seen asymmetry in the lateral right breast anterior depth persist on additional imaging projections. No suspicious calcifications or other abnormal findings. Targeted color Doppler ultrasound demonstrates a hypoechoic oval circumscribed solid mass versus complicated cyst at 9:00 7 cm from the nipple measuring 4 x 3 x 4 mm. This is a correlate for the mammographic asymmetry. MM/MM tomosynthesis added views R IMPRESSION: Hypoechoic oval circumscribed solid mass versus complicated cyst in the right breast at 9:00 7 cm from the nipple correlating with the mammographic finding. Recommend 6 month follow-up for further evaluation of stability. ASSESSMENT: BI-RADS BI-RADS 3 - Probably benign finding(s) - 6 month follow-up suggested RECOMMENDATION: 6 Month F/U Results were provided to the patient at time of visit by the technologist. This patient's information was entered into a reminder system with a target due date for their next mammogram. Electronically signed by: Esperanza Vazquez DO 12/08/2024 12:07 PM EDT
--- OUTSIDE RECORDS SUMMARY | 2024-12-08 13:13 | XMS_ITS | Encounter Summary ---
Author Organization [employer] Address [address] [facility] [address] [place] [address] Care Team Providers Care Regulatory Affairs Analyst Name Role Phone Naila Georges MD Primary Care Provider [phone] Encounter Details Date Type Department Care Team (Late Contact Info) Description 05/20/2024 Telephone [facility] MEDICINE [address] [place] [address] Ovidio Barber MD [address] [place], [place] [phone] Social History Tobacco Use Types Packs/Day Years [...] Medical Concern: Insurance name : Location : [facility] Demographic information updated documented in this encounter Plan of Treatment Upcoming Encounters Date Type Department Care Team (Late Contact Info) Description 12/09/2024 9:30 AM EDT Office Visit [facility] CHC MED & PEDS [address] [place] [address] Naila Georges MD [address] [place] [address] documented as of this encounter Visit Diagnoses Not on filedocumented in this encounter Care Teams Regulatory Affairs Analyst Relationship Specialty Start Date End Date Naila Georges MD [address] [place] [address] PCP - General Family Medicine 08/04/24 documented as of this encounter
--- OUTSIDE RECORDS SUMMARY | 2024-12-08 13:13 | XMS_ITS | Clinical Summary ---
Author Organization [employer] Address [address] [facility] 7t [place] [address] Care Team Providers Care Compliance Administrator Name Role Phone Naila Georges MD Primary Care Provider [phone] Allergies No known active allergies Medications Aspirin Low Dose 81 MG EC tablet Take 1 tablet by mouth Once per day. 07/14/2024 Active carvedilol (Coreg) 3.125 MG tablet TAKE ONE TABLET BY MOUTH TWICE A DAY, TAKE WITH MEAL/FOOD 07/14/2024 Active furosemide (Lasix) 40 MG tablet Take 1 tablet by mouth Once per day. 07/14/2024 Active spironolactone (Aldactone) 25 MG tablet Take 1 tablet by mouth Once per day. 07/14/2024 Active Entresto 24-26 MG tablet Take 1 tablet by mouth 2 times daily. 180 tablet 3 08/04/2024 6 Active Jardiance 10 MG Take 1 tablet (10 mg) by mouth Once per day. 90 tablet 3 08/04/2024 Active meloxicam (Mobic) 7.5 MG tablet Take 1 tablet (7.5 mg) by mouth Once per day. 30 tablet 11 08/04/2024 6 Active Active Problems Problem Noted Date Diagnosed Date Closed fracture of upper end of humerus 08/05/19 25 Chronic combined systolic an d diastolic congestive heart failure 08/04/2024 History of left breast cancer 08/04/2024 Resolved Problems Problem Noted Date Diagnosed Date Resolved Date Type 2 diabetes mellitus wit hout complication, without long-term current use of insulin 08/04/2024 08/04/2024 Encounter for screening mamm ogram for malignant neoplasm of breast 08/04/2024 08/04/2024 Encounters Date Type Department Care Team Description 12/08/2024 Orders Only [facility] MED & PEDS [address] [place] [address] Naila Georges MD 12/08/2024 Telephone [facility] MED & PEDS [address] [facility] [place] [address] Naila Georges MD Chart Prep 11/05/2024 Telephone [facility] MEDICINE [address] [place] [address] Naila Georges MD Nurse Triage 10/28/2024 Telephone [facility] MED & PEDS [address] [facility] [facility] [address] [place] [id number] Naila Georges MD TC- Canceled appt from Last 3 Months Social History Tobacco Use Types Packs/Day Years Used Date Smoking Tobacco: Never Smokeless Tobacco: Never Tobacco Cessation:Counseling Given: Not Answered Housing Stability Answer Date Recorded What is your housing situation today? I have vincent tovar 07/28/[address] you li ve. Do you have problems with any of the following? None of the above 07/28/2024 Food Insecurity Answer Date Recorded Within the past 12 months, y ou worried that your food would run out before you got money to buy more: Never True 07/28/2024 Within the past 12 months,th e food you bought just didn't last and you didn't have enough money to get more: Never True Transportation Answer Date Recorded In the past 12 months, has l ack of transportation kept you from medical appts, meetings, work or from getting things needed for daily living? No 07/28/2024 Utilities Answer Date Recorded In the past 12 months, has t he electric, gas, oil or water company threatened to shut off services in your home? No 07/28/2024 Internet Access Answer Date Recorded Internet Access Q1 Yes 07/28/2024 Internet Access Q2 Not on file 07/28/2024 Comments Unknown Sex and Gender Information Value Date Recorded Sex Assigned at Female 01/28/2022 10:21 AM EDT Legal Sex Female 10:21 AM EDT Gender Identity Female 08/03/2024 10:37 AM EDT Sexual Orientation Don't know 08/03/2024 10 :37 AM EDT Last Filed Vital Signs Vital Sign Reading Time Taken Comments Blood Pressure 124/75 08/04/2024 8:57 AM EDT Pulse 94 08/04/2024 8:57 AM EDT Temperature 36.7 C (98.1 F) 08/04/2024 8:57 AM EDT Respiratory Rate 22 08/04/2024 8:57 AM EDT Oxygen Saturation 98% 08/04/2024 8:57 AM EDT Inhaled Oxygen Concentration - - Weight 116 kg (256 lb) 08/04/2024 8:57 AM EDT Height - - Body Mass Index - - Plan of Treatment Upcoming Encounters Date Type Department Care Team (Late st Contact Info) Description 12/09/2024 9:30 AM EDT Office Visit [facility] MED & PEDS [address] [place] [address] Naila Georges MD [address] [place] [address] Health Maintenance Due Date Last Done Comments CT Colonography 1966 Colonoscopy 1966 Colorectal Cancer Screening 1966 Depression Screening 1966 FIT DNA/Cologuard 1966 FIT 1966 FOBT 1966 HIV Screening 1965 Sigmoidoscopy 1966 Disability Screening 1966 Hepatitis C Screening 01/02/1984 DTaP/Tdap/Td Vaccines (1 - Tdap) 1985 Hepatitis B Vaccines (1 of 3 - 19+ 3-dose series) 1985 Pneumococcal Vaccine: 50+ Years (1 of 2 - PCV) 1985 Pap Smear 1987 Zoster Vaccines (1 of 2) 01/02/2016 Cervical Cancer Screening 06/10/2023 HPV/Cotest 06/10/2023 06/09/2018 COVID-19 Vaccine (1 - 2023-2 5 season) 2024 Influenza Vaccine (#1) 2024 SDOH Screening 07/28/2025 07/28/2024 Alcohol/Substance Use Screening 08/04/2025 08/04/2024 Tobacco Screening 08/04/2025 08/04/2024 Mammogram 10/25/2026 10/25/2024, 09/10/2018 RSV Patients and Patients Aged 60 years or older (1 - [...] Procedure Name Priority Date/Time Associated Diagnosis Comments BI MAMMOGRAM DIAGNOSTIC TOMOSYNTHESIS ADDED VIEW RIGHT Routine 12/08/2024 11:28 AM EDT BI MAMMOGRAM SCREENING TOMOSYNTHESIS RIGHT Routine 10/25/2024 9:14 AM EDT ZZZ HISTORICAL HPV MRNA E6/E7 Routine 06/09/2018 10:17 AM EDT from Last 3 Months or Most Recently Relevant to Health Maintenance Results * BI Mammogram Diagnostic Tomosynthesis added right (12/08/2024 11:28 AM EDT) Anatomical Region Laterality Modality Breast Left Mammography 12/08/2024 11:2 8 AM EDT Narrative 12/08/2024 12:10 PM EDT [facility] [address] [place], [place] [address] Mammography Report Signed Patient: Malissa Lui MR#: [id number] 1590 : 1965 Acct:[id number] Age/Sex: 59 / F ADM Date: 12/08/24 Loc: [facility] Attending Dr: Naila Georges MD Ordering Physician: Naila Georges MD Results: 3.6MPro bably Benign Finding - Short 6 M F/U Suggested Date of Service: 12/08/24 Follow Up: 6 Month F/U Procedure(s): MM tomosynthesis added views R Accession Number(s): [id number] cc: Naila Georges MD EXAMINATION: MM DIAGNOSTIC DIGITAL BREAST TOMOSYNTHESIS, RIGHT Limited right breast ultrasound. CLINICAL INFORMATION: History of left mastectomy. Call back from screening for asymmetry in the right breast. COMPARISON: Mammography: Priors on PACS. TECHNIQUE: Digital breast tomosynthesis is performed in both the craniocaudal and mediolateral oblique views along with computer-aided detection (CAD). Synthesized 2D images are generated from the tomosynthesis. FINDINGS: There are scattered areas of fibroglandular density (ACR BI-RADS breast composition Category b). Previously seen asymmetry in the lateral right breast anterior depth persist on additional imaging projections. No suspicious calcifications or other abnormal findings. Targeted color Doppler ultrasound demonstrates a hypoechoic oval circumscribed solid mass versus complicated cyst at 9:00 7 cm from the nipple measuring 4 x 3 x 4 mm. This is a correlate for the mammographic asymmetry. MM/MM tomosynthesis added views R IMPRESSION: Hypoechoic oval circumscribed solid mass versus complicated cyst in the right breast at 9:00 7 cm from the nipple correlating with the mammographic finding. Recommend 6 month follow-up for further evaluation of stability. ASSESSMENT: BI-RADS BI-RADS 3 - Probably benign finding(s) - 6 month follow-up suggested RECOMMENDATION: 6 Month F/U Results were provided to the patient at time of visit by the technologist. This patient's information was entered into a reminder system with a target due date for their next mammogram. Electronically signed by: Esperanza Vazquez DO 12/08/2024 12:07 PM EDT Dictated By: Esperanza Vazquez DO Signed By: <Electronically signed by Esperanza Vazquez DO in OV> 12/08/24 1207 DD/ 1128 TD/TT: 12/08/24 1148 Kitchen Chef: Procedure Note Donotuseinterpreter, Image - 12/08/2024 [facility] [address] [place] [address] Mammography Report Signed Patient: Ayana Lui#: [id number] : 1965Acct:[id number] Age/Sex: 59 / FADM Date: 12/08/24 Loc: HO.MAMMO Attending Dr: Naila Georges MD Ordering Physician: Naila Georges MDResults: 3.6MPro bably Benign Finding - Short 6 M F/U Suggested Date of Service: 12/08/24Follow Up: 6 Month F/U Procedure(s): MM tomosynthesis added views R Accession Number(s): [id number] cc: Naila Georges MD EXAMINATION: MM DIAGNOSTIC DIGITAL BREAST TOMOSYNTHESIS, RIGHT Limited right breast ultrasound. CLINICAL INFORMATION: History of left mastectomy. Call back from screening for asymmetry in the right breast. COMPARISON: Mammography: Priors on PACS. TECHNIQUE: Digital breast tomosynthesis is performed in both the craniocaudal and mediolateral oblique views along with computer-aided detection (CAD). Synthesized 2D images are generated from the tomosynthesis. FINDINGS: There are scattered areas of fibroglandular density (ACR BI-RADS breast composition Category b). Previously seen asymmetry in the lateral right breast anterior depth persist on additional imaging projections. No suspicious calcifications or other abnormal findings. Targeted color Doppler ultrasound demonstrates a hypoechoic oval circumscribed solid mass versus complicated cyst at 9:00 7 cm from the nipple measuring 4 x 3 x 4 mm. This is a correlate for the mammographic asymmetry. MM/MM tomosynthesis added views R IMPRESSION: Hypoechoic oval circumscribed solid mass versus complicated cyst in the right breast at 9:00 7 cm from the nipple correlating with the mammographic finding. Recommend 6 month follow-up for further evaluation of stability. ASSESSMENT: BI-RADS BI-RADS 3 - Probably benign finding(s) - 6 month follow-up suggested RECOMMENDATION: 6 Month F/U Results were provided to the patient at time of visit by the technologist. This patient's information was entered into a reminder system with a target due date for their next mammogram. Electronically signed by: Esperanza Vazquez DO 12/08/2024 12:07 PM EDT RP Dictated By: Esperanza Vazquez DO Signed By: <Electronically signed by Esperanza Vazquez DO in OV> 12/08/24 1207 DD/ 1128 TD/TT: 12/08/24 1148 Kitchen Chef: Naila Georges MD IMG BI PROCEDURES Final Result * BI Mammogram Screening Tomosynthesis Right (10/25/2024 9:14 AM EDT) Anatomical Region Laterality Modality Breast Right Mammography 10/25/2024 9:14 AM EDT Narrative 11/02/2024 10:46 AM EDT [facility] [address] [place] [address] Mammography Report Signed Patient: Malissa Lui MR#: [id number] : 1965 Acct:[id number] Age/Sex: 59 / F ADM Date: 10/25/24 Loc: HO.MAMMO Attending Dr: Naila Georges MD Ordering Physician: Naila Georges MD Results: 0Incomp lete: Needs Additional Imaging Evaluation Date of Service: 10/25/24 Follow Up: Additional Imagi ng Procedure(s): MM tomosynthesis screening RT Accession Number(s): [id number] cc: Naila Georges MD EXAMINATION: MM SCREENING DIGITAL BREAST TOMOSYNTHESIS, RIGHT CLINICAL INFORMATION: Screening. Asymptomatic. Left breast cancer in 2012 status post mastectomy. COMPARISON: Mammography: This study is compared with prior exams dating back to TECHNIQUE: Digital breast tomosynthesis is performed in both the craniocaudal and mediolateral oblique views along with computer-aided detection (CAD). Synthesized 2D images are generated from the tomosynthesis. FINDINGS: There are scattered areas of fibroglandular density (ACR BI-RADS breast composition Category b). Asymmetry lateral breast anterior depth on RX CCL imaged. No suspicious calcifications or other abnormal findings. MM/MM tomosynthesis screening RT IMPRESSION: Asymmetry lateral breast anterior depth on cc L image. Additional imaging recommended at this time. ASSESSMENT: BI-RADS BI-RADS 0 - Incomplete: Needs additional Imaging. RECOMMENDATION: 1. Additional views of the right breast. 2. Targeted ultrasound if warranted after review of the additional views. 3. Radiology department staff will contact the patient for additional imaging. Additional Imaging required This examination should not preclude the clinical evaluation of a suspicious palpable abnormality. This patient's information was entered into a reminder system with a target due date for their next mammogram. Electronically signed by: Esperanza Vazquez DO 11/02/2024 10:44 AM EDT RP Dictated By: Esperanza Vazquez DO Signed By: <Electronically signed by Esperanza Vazquez DO in OV> 11/02/24 1044 DD/ 3 TD/TT: 10/25/24942 Kitchen Chef: Procedure Note Donotuseinterpreter, Image - 11/02/2024 [facility] [address] [place] [address] Mammography Report Signed Patient: Ayana Lui#: [id number] : 1965Acct:[id number] Age/Sex: 59 / FADM Date: 10/25/24 Loc: HO.MAMMO Attending Dr: Naila Georges MD Ordering Physician: Naila Georges MDResults: 0Incomp lete: Needs Additional Imaging Evaluation Date of Service: 10/25/24Follow Up: Additional Imagi ng Procedure(s): MM tomosynthesis screening RT Accession Number(s): [id number] cc: Naila Georges MD EXAMINATION: MM SCREENING DIGITAL BREAST TOMOSYNTHESIS, RIGHT CLINICAL INFORMATION: Screening. Asymptomatic. Left breast cancer in 2012 status post mastectomy. COMPARISON: Mammography: This study is compared with prior exams dating back to TECHNIQUE: Digital breast tomosynthesis is performed in both the craniocaudal and mediolateral oblique views along with computer-aided detection (CAD). Synthesized 2D images are generated from the tomosynthesis. FINDINGS: There are scattered areas of fibroglandular density (ACR BI-RADS breast composition Category b). Asymmetry lateral breast anterior depth on RX CCL imaged. No suspicious calcifications or other abnormal findings. MM/MM tomosynthesis screening RT IMPRESSION: Asymmetry lateral breast anterior depth on cc L image. Additional imaging recommended at this time. ASSESSMENT: BI-RADS BI-RADS 0 - Incomplete: Needs additional Imaging. RECOMMENDATION: 1. Additional views of the right breast. 2. Targeted ultrasound if warranted after review of the additional views. 3. Radiology department staff will contact the patient for additional imaging. Additional Imaging required This examination should not preclude the clinical evaluation of a suspicious palpable abnormality. This patient's information was entered into a reminder system with a target due date for their next mammogram. Electronically signed by: Esperanza Vazquez DO 11/02/2024 10:44 AM EDT Dictated By: Esperanza Vazquez DO Signed By: <Electronically signed by Esperanza Vazquez DO in OV> 11/02/24 1044 DD/ 0914 TD/TT: 10/25/24 0943 Kitchen Chef: Naila Georges MD IM BI PROCEDURES Edited Result - Final * HPV mRNA E6/E7 (06/09/2018 10:17 AM EDT) HPV mRNA E6/E7 Not Detected NOT DETECTED [facility] Comment: This test was performed using the APTIMA(R) HPV Assay ([employer] This assay detects E6/E7 viral messenger RNA (mRNA) from 14 high-risk HPV types (16,18,31,33,35,39,45,51, 52,56,58,59,66,68). For additional information please refer to: http://education.Teros.Wipit/faq/KHI333u7 (This link is being provided for informational/ educational purposes only.) The analytical performance characteristics of this assay have been determined by [employer] [place], [place]. The modifications have not been cleared or approved by the FDA. This assay has been validated pursuant to the CLIA regulations and is used for clinical purposes. Test Performed by [employer], [employer] [facility], [address] [place] [address] Dalton Poon M.D., Ph.D., Director of Laboratories , [facility] [id number] Please note: Effective 12/11/2015, HPV testing will be performed using [employer] APTIMA test which targets mRNA. Detecting mRNA instead of DNA, as in older methods, offers significant improvements in specificity. 06/09/2018 10:1 7 AM EDT us Naila Georges MD HISTORICAL/NON ORDERABLE LABS Fi nal Result [facility] Anywhere [address] from Last 3 Months or Most Recently Relevant to Health Maintenance Insurance [facility] [address] [place] [address] [place] [address] [place] [address] Care Teams Compliance Administrator Relationship Specialty Start Date End Date Naila Georges MD [address] [place] [id number] PCP - General Family Medicine 08/04/24
--- OUTSIDE RECORDS SUMMARY | 2024-12-08 13:13 | XMS_ITS | Encounter Summary ---
Author Organization [employer] Address [address] [facility] 7t [place] [address] Care Team Providers Care Pediatric Speech Therapist Name Role Phone Naila Georges MD Primary Care Provider [phone] Encounter Details Date Type Department Care Team ([facility] Contact Info) Description 12/08/2024 Orders Only [facility] MED [facility]EDS [address] [place], [place] [phone] Naila Georges MD [address] [place], [place] [phone] Social History Tobacco Use Types Packs/Day Years Used Date Smoking Tobacco: Never Smokeless Tobacco: Never Housing Stability Answer Date Recorded What is [...] AM EDT documented as of this encounter Plan of Treatment Upcoming Encounters Date Type Department Care Team (Late st Contact Info) Description 12/09/2024 9:30 AM EDT Office Visit [facility] MED & PEDS [address] [place] [address] Naila Georges MD [address] [place] [address] documented as of this encounter Procedures Procedure Name Priority Date/Time Associated Diagnosis Comments BI MAMMOGRAM DIAGNOSTIC TOMOSYNTHESIS ADDED VIEW RIGHT Routine 12/08/2024 11:28 AM EDT documented in this encounter Results * BI Mammogram Diagnostic Tomosynthesis added right (12/08/2024 11:28 AM EDT) Anatomical Region Laterality Modality Breast Left Mammography 12/08/2024 11:2 8 AM EDT Narrative 12/08/2024 12:10 PM EDT [facility] [address] [place] [address] Mammography Report Signed Patient: Malissa Lui MR#: [id number] : 1965 Acct:[id number] Age/Sex: 59 / F ADM Date: 12/08/24 Loc: HO.MAMMO Attending Dr: Naila Georges MD Ordering Physician: Naila Georges MD Results: 3.6MPro bably Benign Finding - Short 6 M F/U Suggested Date of Service: 12/08/24 Follow Up: 6 Month F/U Procedure(s): MM tomosynthesis added views R Accession Number(s): [id number] cc: Naila Georges MD EXAMINATION: MM DIAGNOSTIC [...] 12/08/24 1207 DD/ 1128 TD/TT: 12/08/24 1148 Face Painter: Procedure Note Donotuseinterpreter, Image - 12/08/2024 [facility] [address] [place] [address] [address] [place], [place] [address] Mammography Report Signed Patient: Malissa LuiMR#: [id number] 1590 : 1965Acct:[id number] Age/Sex: 59 / FADM Date: 12/08/24 Loc: HO.MAMMO Attending Dr: Naila Georges MD Ordering Physician: Naila Georges MDResults: 3.6MPro bably Benign Finding - Short 6 M F/U Suggested Date of Service: 12/08/24Follow Up: 6 Month F/U Procedure(s): MM tomosynthesis added views R Accession Number(s): [id number] cc: Naila Georges MD EXAMINATION: MM DIAGNOSTIC [...] 12/08/24 1207 DD/ 1128 TD/TT: 12/08/24 1148 Face Painter: Naila Georges MD IMG BI PROCEDURES Final Result documented in this encounter Visit Diagnoses Not on filedocumented in this encounter Care Teams Pediatric Speech Therapist Relationship Specialty Start Date End Date Naila Georges MD [address] [place] [id number] PCP - General Family Medicine 08/04/24 documented as of this encounter
--- OUTSIDE RECORDS SUMMARY | 2024-12-08 13:13 | XMS_ITS | Encounter Summary ---
Author Organization [employer] Address 75 [facility] 7t [place] [address] Care Team Providers Care Senior Game Advisor Name Role Phone Naila Georges MD Primary Care Provider Reason for Visit * Reason Onset Date Comments Chart Prep 12/08/2024 Encounter Details Date Type Department Care Team ([facility] st Contact Info) Description 12/08/2024 Telephone [facility] CHC MED & PEDS [address] [place], [place] [phone] Naila Georegs MD [address] [place] [address] Chart Prep Social History Tobacco Use Types Packs/Day Years [...] encounter Miscellaneous Notes * Telephone Encounter - Zaira Mccormick [place] - 12/08/2024 9:31 AM EDT Chart Prep Labs: not done Images: done Referrals: complete Vaccines due: due Screenings: colonoscopy, pap smear, and STI screening Overdue care gaps: PHQ-9 and Disability screen documented in this encounter Plan of Treatment Upcoming Encounters Date Type Department Care Team (Late st Contact Info) Description 12/09/2024 9:30 AM EDT Office Visit [facility] CHC MED & PEDS [address] [place] [address] Naila Georges MD [address] [place] [address] documented as of this encounter Visit Diagnoses Not on filedocumented in this encounter Care Teams Senior Game Advisor Relationship Specialty Start Date End Date Naila Georges MD [address] [place] [address] PCP - General Family Medicine 08/04/24 documented as of this encounter
== END 2024-12-08 10:39 | disposition home or self-care (01) ==
LOC: HO.MAMMO 10:38
PROVIDERS: PCP Student in an Organized Health Care Education/Training Program; Visit Provider Student in an Organized Health Care Education/Training Program
DX: N64.89 Other specified disorders of breast (principal)
CPT/HCPCS: 76642; 77061; 77065

== ENCOUNTER → 2024-12-08 11:00 | Outpatient (BNV) | payer MEDICAID, SELFPAY | PROVIDERS: PCP Student in an Organized Health Care Education/Training Program; Visit Provider Internal Medicine | DX: N63.13 Unspecified lump in the right breast, lower outer quadrant (principal) | CPT/HCPCS: 76642; 77061; 77065 ==

== ENCOUNTER 2024-12-09 10:37 | Outpatient (REF) | payer MEDICAID, SELFPAY ==
[2024-12-09 15:00] LABS: Alanine Aminotransferase 30 U/L (0-31); Albumin Level 4.5 g/dL (3.5-5.0); Alkaline Phosphatase 90 U/L (39-117); Anion Gap 12 (12-20); Aspartate Amino Transferase 48 U/L (5-31); Blood Urea Nitrogen 11 mg/dL (9-16); Calcium 9.6 mg/dL (8.4-10.2); Carbon Dioxide 30 mmol/L (22-29); Chloride 104 mmol/L (96-108); Cholesterol 203 mg/dL (<200); Estimated Glomerular Filt Rate 58; HDL Cholesterol 63 mg/dL (>40); Potassium 5.0 mmol/L (3.3-5.1); Sodium 141 mmol/L (135-145); Total Protein 8.1 g/dL (6.5-8.0)
[2024-12-09 15:29] LABS: Triglycerides 119 mg/dL (<150)
== END 2024-12-09 10:38 | disposition home or self-care (01) ==
LOC: HO.CHCLDS 10:37
PROVIDERS: Visit Provider Student in an Organized Health Care Education/Training Program
DX: I50.42 Chronic combined systolic (congestive) and diastolic (congestive) heart failure (principal)
CPT/HCPCS: 36415; 80048; 80061; 80076

== ENCOUNTER 2024-12-13 15:01 | Outpatient (REF) | payer MEDICAID, SELFPAY ==
--- OUTSIDE RECORDS SUMMARY | 2024-12-09 09:30 | XMS_ITS | Encounter Summary ---
Author Organization [facility] Address [address] [facility] 7t [place] [address] Care Team Providers Care Hair Clipper Power Name Role Phone Naila Georges MD Primary Care Provider [phone] Reason for Referral * Consultation (Routine) - Canceled Specialty Diagnoses / Procedures Referred By Brian stover Referred To Contact Gastroenterology Diagnoses Encounter for screening for malignant neoplasm of colon Naila Georges MD [address] [place] [address] Phone: tel: fax: Referral ID Status Reason Start Date Expiration Date Visits Requested Visits Authorized [id number] Canceled Specialty Services Required 12/09/2024 12/09/2025 1 1 Encounter Details Date Type Department Care Team ([facility] Contact Info) Description 12/09/2024 9:30 AM EDT Office Visit [facility] [address] [place] [address] Naila Georges MD [address] [place] [address] Chronic combined systolic and diastolic congestive heart failure (CMS/HCC) (Primary Dx); Encounter for immunization; Encounter for screening for malignant neoplasm of colon; Arthralgia, unspecified joint Social History Tobacco Use Types Packs/Day Years Used Date Smoking Tobacco: Never Smokeless Tobacco: Never Depression Answer Date Recorded Patient Health Questionnaire-9 Score 12 12/09/2024 Patient Health Questionnaire-9 Score 12 12/09/2024 Last PHQ-9: Questionnaire Data Not on file 0 12/09/2024 Housing Stability Answer Date Recorded What is [...] off services in your home? No 07/28/2024 Depression Answer Date Recorded Patient Health Questionnaire-2 Score 4 12/09/2024 Internet Access Answer Date Recorded Internet Access Q1 Yes 07/28/2024 Internet Access Q2 Not on file 07/28/2024 Comments Unknown Sex and Gender Information Value Date Recorded Sex Assigned at Female 01/28/2022 10:21 AM EDT Legal Sex Female 10:21 AM EDT Gender Identity Female 08/03/2024 10:37 AM EDT Sexual Orientation Don't know 08/03/2024 10 :37 AM EDT documented as of this encounter Last Filed Vital Signs Vital Sign Reading Time Taken Comments Blood Pressure 152/98 12/09/2024 9:32 AM EDT Pulse 76 12/09/2024 9:32 AM EDT Temperature 36.9 C (98.4 F) 12/09/2024 9:32 AM EDT Respiratory Rate 20 12/09/2024 9:32 AM EDT Oxygen Saturation - - Inhaled Oxygen Concentration - - Weight 119 kg (262 lb) 12/09/2024 9:32 AM EDT Height - - Body Mass Index - - documented in this encounter Functional Status * Over the past 2 weeks, how often have you been bothered by any of the following problems? Question Answer Date of Assessment Author Patient Health Questionnaire-2 Score 4 11/29 9:34 AM Adamaris Singh MA * Little interest or pleasure in doing things Answer Date of Assessment Author More than half the days 12/09/2024 9:34 AM Adamaris Freeman MA * Feeling down, depressed, or hopeless Answer Date of Assessment Author More than half the days 12/09/2024 9:34 AM Adamaris Freeman MA * Trouble falling or staying asleep, or sleeping too much Answer Date of Assessment Author Nearly every day 12/09/2024 9:34 AM Salma Singh MA * Feeling tired or having little energy Answer Date of Assessment Author Nearly every day 12/09/2024 9:34 AM Salma Singh MA * Poor appetite or overeating Answer Date of Assessment Author More than half the days 12/09/2024 9:34 AM Adamaris Freeman MA * Feeling bad about yourself - or that you are a failure or have let yourself or your family down Answer Date of Assessment Author Not at all 12/09/2024 9:34 AM Amanda Singh MA * Trouble concentrating on things, such as reading the newspaper or watching television Answer Date of Assessment Author Not at all 12/09/2024 9:34 AM Amanda Singh MA * Moving or speaking so slowly that other people could have noticed? Or the opposite - being so fidgety or restless that you have been moving around a lot more than usual. Answer Date of Assessment Author Not at all 12/09/2024 9:34 AM Amanda Singh MA * Thoughts that you would be better off or hurting yourself in some way Answer Date of Assessment Author Not at all 12/09/2024 9:34 AM Amanda Singh MA * Patient Health Questionnaire-9 Score Answer Date of Assessment Author 12 12/09/2024 9:34 AM Amanda Singh MA * How difficult have these problems made it for you to do your work, take care of things at home, or get along with other people? Answer Date of Assessment Author Not difficult at all 12/09/2024 9:34 AM Adamaris Brannon MA documented as of this encounter Progress Notes * Niala Georges MD - 12/09/2024 9:30 AM EDT Subjective Patient ID: Malissa Lui is a 59 y.o. female who presents for No chief complaint on file.. Arthritis Presents for follow-up visit. The symptoms have been improving. Affected location: multiple joints.Her pain is at a severity of 6/10. Review of Systems Constitutional: Negative. Respiratory: Negative. Negative for shortness of breath. Cardiovascular: Negative for chest pain and palpitations. Gastrointestinal: Negative. Genitourinary: Negative. Musculoskeletal: Positive for arthritis. Negative for neck pain. Neurological: Negative for headaches. Objective Physical Exam Constitutional: Appearance: Normal appearance. Cardiovascular: Rate and Rhythm: Normal rate and regular rhythm. Pulses: Normal pulses. Heart sounds: Normal heart sounds. Pulmonary: Effort: Pulmonary effort is normal. Chest: Comments: Left mastectomy Abdominal: General: Abdomen is flat. Neurological: Mental Status: She is alert. Assessment/Plan Diagnoses and all orders for this visit: Chronic combined systolic and diastolic congestive heart failure (CMS/HCC) Comments: Follow with Cardio Pt was out of all her meds hence the elvted BP All meds refilled Maintain a low-sodium diet (less than 2 grams per day). Maintain a regular cardiovascular exercise program. Advised to maintain a low-fat, low-cholesterol diet. Counseled regarding importance of weight loss. Counseled re: potential co-morbidities including cardiovascular disease. Orders: - Basic Metabolic Panel; Future - Lipid Panel, Standard; Future - Hepatic Function Panel; Future Encounter for immunization - TDAP VACCINE 7 yrs + Encounter for screening for malignant neoplasm of colon - Referral to Gastroenterology; Future Arthralgia, unspecified joint Comments: Stable on meloxicam Other orders - carvedilol (Coreg) 3.125 MG tablet; Take 1 tablet (3.125 mg) by mouth with breakfast and with evening meal. - spironolactone (Aldactone) 25 MG tablet; Take 1 tablet (25 mg) by mouth Once per day. - Aspirin Low Dose 81 MG EC tablet; Take 1 tablet (81 mg) by mouth Once per day. - Jardiance 10 MG; Take 1 tablet (10 mg) by mouth Once per day. - furosemide (Lasix) 40 MG tablet; Take 1 tablet (40 mg) by mouth Once per day. - meloxicam (Mobic) 7.5 MG tablet; Take 1 tablet (7.5 mg) by mouth Once per day. documented in this encounter Plan of Treatment Scheduled Referrals Name Type Priority Associated Diagnoses Order Schedule Referral to Gastroenterology Outpatient Referral Routine Encounter for screening for malignant neoplasm of colon Expected: 12/09/2024 (Approximate), Expires: 12/09/2025 documented as of this encounter Procedures Procedure Name Priority Date/Time Associated Diagnosis Comments HEPATIC FUNCTION PANEL Routine 12/09/2024 10:38 AM EDT Chronic combined systolic and diastolic congestive heart failure (CMS/HCC) LIPID PANEL, STANDARD Routine 12/09/2024 10:38 AM EDT Chronic combined systolic and diastolic congestive heart failure ([facility]/HCC) BASIC METABOLIC PANEL Routine 12/09/2024 10:38 AM EDT Chronic combined systolic and diastolic congestive heart failure (CMS/HCC) documented in this encounter Results * (ABNORMAL) Hepatic Function Panel (12/09/2024 10:38 AM EDT) Bilirubin, Total 0.5 0.0 - 1.0 mg/dL [facility] Bilirubin, Direct 0.2 0.0 - 0.5 mg/dL [facility] Aspartate Amino Transferase 48(H) 5 - 31 U/L [facility] Comment:Slight Hemolysis.Int erpret result with caution. Alanine Aminotransferase 30 0 - 31 U/L [facility] Total Protein 8.1(H) 6.5 - 8.0 g/dL [facility] Albumin Level 4.5 3.5 - 5.0 g/dL [facility] Alkaline Phosphatase 90 39 - 117 U/L [facility] Blood Venous blood specimen / Unknown 12/09/2024 10:38 AM EDT 12/09/2024 2:14 PM EDT us Naila Georges MD LAB BLOOD ORDERABLES Final Resul t Performing Organization Address [facility] Co de Phone Number [facility] [address] [place] [address] [phone] * (ABNORMAL) Lipid Panel, Standard (12/09/2024 10:38 AM EDT) Triglycerides 119 <150 mg/dL [facility] Comment:Desirable Triglyceri de: less than 150 mg/dLBorderline High Triglyceride 150-199 mg/dLHigh Triglyceride: 200-499 mg/dLVery High Triglyceride: greater than or equal to 5OO mg/dL Cholesterol 203(H) <200 mg/dL [facility] Comment:Desirable Cholestero l: less than 200 mg/dLBorderline High Cholesterol: 200-239 mg/dLHigh Cholesterol: greater than 239 mg/dL LDL Cholesterol Calculated 117(H) <100 mg/dL [facility] Comment:Desirable LDL: less than 100 mg/dLNear Optimal/Above Optimal LDL: 110- 129 mg/dLBorderline High LDL: 130-159 mg/dLHigh LDL: 160-189 mg/dLVery High LDL: greater than or equal to 190 mg/dL HDL Cholesterol 63 >40 mg/dL [facility] Comment:Desirable HDL: great er than 40 mg/dL Note: This HDL assay may give artificially low results in patients with liver disease. Blood Venous blood specimen / Unknown 12/09/2024 10:38 AM EDT 12/09/2024 2:14 PM EDT us Naila Georges MD LAB BLOOD ORDERABLES Final Resul t Performing Organization Address [facility]/ZIP Co de Phone Number [facility] [address] [place] [address] [phone] * (ABNORMAL) Basic Metabolic Panel (12/09/2024 10:38 AM EDT) Sodium 141 135 - 145 mmol/L [facility] Potassium 5.0 3.3 - 5.1 mmol/L [facility] Comment:Slight Hemolysis.Int erpret result with caution. Chloride 104 96 - 108 mmol/L [facility] Carbon Dioxide 30(H) 22 - 29 mmol/L [facility] Anion Gap 12 12 - 20 [facility] Urea Nitrogen (BUN) 11 9 - 16 mg/dL [facility] Creatinine, Serum 0.98 0.5 - 1.4 mg/dL [facility] Estimated Glomerular Filt Rate 58 [facility] Comment:Chronic Kidney Disea se: Estimated GFR < 60 mL/min/1.66r3Pgnpiw Kidney Disease: Estimated GFR < 15 mL/min/1.73m2 Glucose 84 60 - 115 mg/dL [facility] Calcium 9.6 8.4 - 10.2 mg/dL [facility] Blood Venous blood specimen / Unknown 12/09/2024 10:38 AM EDT 12/09/2024 2:14 PM EDT Naila Georges MD LAB BLOOD ORDERABLES Final Resul t Performing Organization Address City/State/[facility] Co de Phone Number [facility] [address] [place] [address] [phone] documented in this encounter Visit Diagnoses Diagnosis Chronic combined systolic and diastolic congestive heart failure (CMS/HCC)- Primary Encounter for immunization Encounter for screening for malignant neoplasm of colon Arthralgia, unspecified joint documented in this encounter Additional Health Concerns Assessment Noted Time PHQ-9 Depression Total Score: 12 025 9:34 AM EDT documented as of this encounter Care Teams Hair Clipper Power Relationship Specialty Start Date End Date Naila Georges MD [address] [place] [id number] PCP - General Family Medicine 08/04/24 documented as of this encounter
--- OUTSIDE RECORDS SUMMARY | 2024-12-13 10:00 | XMS_ITS | Encounter Summary ---
Author Organization [employer] Address [address] [facility] 7t [place] [address] Care Team Providers Care Gmat Instructor Name Role Phone Naila Georges MD Primary Care Provider [phone] Reason for Visit * Reason Comments Cervical Cancer Screening Encounter Details Date Type Department Care Team (Latest Contact Info) Description 12/13/2024 10:00 AM EDT Procedure Visit [facility]S [address] [place] [address] Joanna Dillon MD [address] [place] [address] Cervical cancer screening (Primary Dx); Encounter for immunization Social History Tobacco Use Types Packs/Day Years Used Date Smoking Tobacco: Never Passive Smoke Exposure: Current Smokeless Tobacco: Never Tobacco Cessation:Counseling Given: Not Answered Alcohol Use Standard Drinks/Week Comments Yes 0 (1 standard drink = 0.6 oz pur e alcohol) Social irregular Depression Answer Date Recorded Patient Health Questionnaire-9 Score 12 12/09/2024 Patient Health Questionnaire-9 Score 12 12/09/2024 Last PHQ-9: Questionnaire Data Not on file 0 12/09/2024 Housing Stability Answer Date Recorded What is your housing situation today? I have vincent guy 07/28/[address] you li [...] Access Q2 Not on file 07/28/2024 Comments No Sex and Gender Information Value Date Recorded Sex Assigned at Female 01/28/2022 10:21 AM EDT Legal Sex Female 10:21 AM EDT Gender Identity Female 08/03/2024 10:37 AM EDT Sexual Orientation Don't know 08/03/2024 10 :37 AM EDT documented as of this encounter Last Filed Vital Signs Vital Sign Reading Time Taken Comments Blood Pressure 140/78 12/13/2024 10:02 AM EDT Pulse 78 12/13/2024 10:02 AM EDT Temperature 36.9 C (98.5 F) 12/13/2024 10:02 AM EDT Respiratory Rate 18 12/13/2024 10:02 AM EDT Oxygen Saturation 97% 12/13/2024 10:02 AM EDT Inhaled Oxygen Concentration - - Weight 119 kg (263 lb) 12/13/2024 10:02 AM EDT Height 157.5 cm (5' 2 ) 12/13/2024 10:02 AM EDT Body Mass Index 48.1 12/13/2024 10:02 AM EDT documented in this encounter Progress Notes * Joanna Dillon MD - 12/13/2024 10:00 AM EDT Subjective Patient ID: Malissa Lui is a 59 y.o. female who presents for Cervical Cancer Screening. 59 y.o. female here for annual well woman preventive exam. LMP: No LMP recorded (lmp unknown). Patient is postmenopausal. Sexual activity: Social History Substance and Sexual Activity Sexual activity: Not Currently intention: BC method: Smoking hx: Tobacco Use: Medium Risk (12/13/2024) Tobacco Smoking Tobacco Use: Never Smokeless Tobacco Use: Never Passive Exposure: Current Alcohol use hx: Social History Substance and Sexual Activity Alcohol use: Yes Comment: Social irregular OBHx: # 1 - Date: None, Sex: None, Weight: None, GA: None, Type: None, Apgar1: None, Apgar5: None, Living: None, Comments: None # 2 - Date: None, Sex: None, Weight: None, GA: None, Type: None, Apgar1: None, Apgar5: None, Living: None, Comments: None # 3 - Date: None, Sex: None, Weight: None, GA: None, Type: None, Apgar1: None, Apgar5: None, Living: None, Comments: None # 4 - Date: None, Sex: None, Weight: None, GA: None, Type: None, Apgar1: None, Apgar5: None, Living: None, Comments: None # 5 - Date: None, Sex: None, Weight: None, GA: None, Type: None, Apgar1: None, Apgar5: None, Living: None, Comments: None # 6 - Date: None, Sex: None, Weight: None, GA: None, Type: None, Apgar1: None, Apgar5: None, Living: None, Comments: None IPV: Denies IPV Reviewed family hx No family history on file. Health Maintenance: No results found for: HMPAP , HMMAMMO , HMCOLON Review of Systems Constitutional: Negative for appetite change, fatigue and fever. HENT: Negative for congestion, postnasal drip and rhinorrhea. Eyes: Negative for discharge and redness. Respiratory: Negative for apnea, cough, chest tightness and shortness of breath. Cardiovascular: Negative for chest pain. Gastrointestinal: Negative for abdominal pain. Endocrine: Negative for polyphagia. Genitourinary: Negative for difficulty urinating, dysuria and urgency. Musculoskeletal: Negative for arthralgias. Neurological: Negative for dizziness, light-headedness, numbness and headaches. Hematological: Negative for adenopathy. Does not bruise/bleed easily. Objective BP (!) 140/78 Pulse 78 Temp 98.5 ??F (36.9 ??C) (Oral) Resp 18 Ht 5' 2 (1.575 m) Wt 263 lb (119 kg) LMP (LMP Unknown) SpO2 97% BMI 48.10 kg/m?? Physical Exam Vitals reviewed. Exam conducted with a department helper present. Constitutional: Appearance: She is obese. HENT: Head: Normocephalic and atraumatic. Pulmonary: Effort: Pulmonary effort is normal. Chest: Chest wall: No deformity, tenderness or crepitus. Breasts: Breasts are symmetrical. Right: Normal. No inverted nipple, mass, nipple discharge, skin change or tenderness. Left: Normal. No inverted nipple, mass, nipple discharge, skin change or tenderness. Genitourinary: Urethra: No prolapse. Vagina: Normal. Cervix: Normal. Musculoskeletal: Cervical back: Normal range of motion. Lymphadenopathy: Upper Body: Right upper body: No supraclavicular, axillary or pectoral adenopathy. Left upper body: No supraclavicular, axillary or pectoral adenopathy. Psychiatric: Mood and Affect: Mood normal. Assessment/Plan Problem List Items Addressed This Visit Cervical cancer screening - Primary 59 y.o. here for cervical cancer screening. Will continue monitoring following ASCCP guidelines. Relevant Orders Pap Smear HPV High Risk with Reflex to Subtypes Other Visit Diagnoses Encounter for immunization Relevant Orders PCV-20 VACCINE 6 wks + documented in this encounter Miscellaneous Notes * Assessment & Plan Note - Joanna Dillon MD - 12/13/2024 10:29 AM EDT Associated Problem(s): Cervical cancer screening 59 y.o. here for cervical cancer screening. Will continue monitoring following ASCCP guidelines. documented in this encounter Plan of Treatment Scheduled Orders Name Type Priority Associated Diagnoses Orde r Schedule Pap Smear Pathology and Cytology Routine Cervical cancer screening Ordered: 12/13/2024 HPV High Risk with Reflex to Subtypes Lab Routine Cervical cancer screening Ordered: 12/13/2024 documented as of this encounter Visit Diagnoses Diagnosis Cervical cancer screening- Primary Screening for malignant neoplasm of the cervix Encounter for immunization documented in this encounter Additional Health Concerns Assessment Noted Time PHQ-9 Depression Total Score: 12 025 9:34 AM EDT documented as of this encounter Care Teams Gmat Instructor Relationship Specialty Start Date End Date Naila Georges MD [address] [place] [address] PCP - General Family Medicine 08/04/24 documented as of this encounter
--- OUTSIDE RECORDS SUMMARY | 2024-12-13 20:27 | XMS_ITS | Encounter Summary ---
Author Organization [employer] Address [address] [facility] 7t [place] [address] Care Team Providers Care Toxics Program Officer Name Role Phone Naila Georges MD Primary Care Provider Reason for Visit * Reason Onset Date Comments Med Refill 12/09/2024 Encounter Details Date Type Department Care Team ([facility] st Contact Info) Description 12/09/2024 Refill [facility]S [address] [place], [place] [phone] Naila Georges MD [address] [place] [address] Social History Tobacco Use Types Packs/Day Years [...] AM EDT documented as of this encounter Functional Status * Over the past 2 weeks, how often have you been bothered by any of the following problems? Question Answer Date of Assessment Author Patient Health Questionnaire-2 Score 4 11/29 9:34 AM EDAdamaris Paredes MA * Little interest or pleasure in doing things Answer Date of Assessment Author More than half the days 12/09/2024 9:34 AM EDT Adamaris Mccurdy MA * Feeling down, depressed, or hopeless [...] Author Not at all 12/09/2024 9:34 AM EDT Amanda New MA * Moving or speaking so slowly that other people could have noticed? Or the opposite - being so fidgety or restless that you have been moving around a lot more than usual. Answer Date of Assessment Author Not at all 12/09/2024 9:34 AM EDT Amanda New MA * Thoughts that you would be better off or hurting yourself in some way Answer Date of Assessment Author Not at all 12/09/2024 9:34 AM EDT Amanda New MA * Patient Health Questionnaire-9 Score Answer Date of Assessment Author 12 12/09/2024 9:34 AM EDT Amanda New MA * How difficult have these problems made it for you to do your work, take care of things at home, or get along with other people? Answer Date of Assessment Author Not difficult at all 12/09/2024 9:34 AM EDT Adamaris Macdonald MA documented as of this encounter Miscellaneous Notes * Telephone Encounter - Martina Almendarez LPN - 12/09/2024 1:46 PM EDT Per pharmacy please remove MOLLY 1 and resend. documented in this encounter Plan of Treatment Not on file documented as of this encounter Visit Diagnoses Not on filedocumented in this encounter Additional Health Concerns Assessment Noted Time PHQ-9 Depression Total Score: 025 9:34 AM EDT documented as of this encounter Care Teams Toxics Program Officer Relationship Specialty Start Date End Date Naila Georges MD [address] [place] [id number] PCP - General Family Medicine 08/04/24 documented as of this encounter
--- OUTSIDE RECORDS SUMMARY | 2024-12-13 20:27 | XMS_ITS | Encounter Summary ---
Author Organization [employer] Address [address] [facility] [address]t [place] [address] Care Team Providers Care Commissary Assistant Name Role Phone Naila Georges MD Primary Care Provider [phone] Encounter Details Date Type Department Care Team (Latest Contact Info) Description 12/09/2024 Travel Social History Tobacco Use Types Packs/Day Years [...] Macdonald MA documented as of this encounter Plan of Treatment Not on file documented as of this encounter Visit Diagnoses Not on filedocumented in this encounter Additional Health Concerns Assessment Noted Time PHQ-9 Depression Total Score: 025 9:34 AM EDT documented as of this encounter Care Teams Commissary Assistant Relationship Specialty Start Date End Date Naila Georges MD [address] [place], [place] [address] [address] PCP - General Family Medicine 08/04/24 documented as of this encounter
--- OUTSIDE RECORDS SUMMARY | 2024-12-13 20:27 | XMS_ITS | Encounter Summary ---
Author Organization [employer] Address [address] [facility] 7t [place] [address] Care Team Providers Care Agile Scrum Master Name Role Phone Naila Georges MD Primary Care Provider [phone] Encounter Details Date Type Department Care Team ([facility] [address] Contact Info) Description 12/09/2024 Results Follow-Up [facility] MED & PEDS [address] [place], [place] [phone] Naila Georges MD [address] [place] [address] BI US Breast Limited Right Social History Tobacco Use Types Packs/Day Years [...] Author Not at all 12/09/2024 9:34 AM Amanad Singh MA * Thoughts that you would be better off or hurting yourself in some way Answer Date of Assessment Author Not at all 12/09/2024 9:34 AM Amanda Singh MA * Patient Health Questionnaire-9 Score Answer Date of Assessment Author 12 12/09/2024 9:34 AM ISRAELT Amanda New MA * How difficult have these problems made it for you to do your work, take care of things at home, or get along with other people? Answer Date of Assessment Author Not difficult at all 12/09/2024 9:34 AM EDT Adamaris Macdonald MA documented as of this encounter Miscellaneous Notes * Result Encounter Note - Naila Georges MD - 12/09/2024 9:08 AM EDT 6 [facility] follow up BRADS 3.Needs tracking documented in this encounter Plan of Treatment Not on file documented as of this encounter Visit Diagnoses Not on filedocumented in this encounter Additional Health Concerns Assessment Noted Time PHQ-9 Depression Total Score: 12 025 9:34 AM EDT documented as of this encounter Care Teams Agile Scrum Master Relationship Specialty Start Date End Date Naila Georges MD [address] [place] [id number] PCP - General Family Medicine 08/04/24 documented as of this encounter
--- OUTSIDE RECORDS SUMMARY | 2024-12-13 20:27 | XMS_ITS | Clinical Summary ---
Author Organization [employer] Address [address] [facility] 7t [place] [address] Care Team Providers Care Senior Quality Methods Specialist Name Role Phone Naila Georges MD Primary Care Provider Allergies No known active allergies Medications Entresto 24-26 MG tablet Take 1 tablet by mouth 2 times daily. 180 tablet 3 08/05/19 25 026 Active carvedilol (Coreg) 3.125 MG tablet Take 1 tablet (3.125 mg) by mouth with breakfast and with evening meal. 180 tablet 3 12/10/19 25 Active spironolactone (Aldactone) 25 MG tablet Take 1 tablet (25 mg) by mouth Once per day. 90 tablet 12/10/19 25 Active Aspirin Low Dose 81 MG EC tablet Take 1 tablet (81 mg) by mouth Once per day. 90 tablet 12/10/19 25 Active furosemide (Lasix) 40 MG tablet Take 1 tablet (40 mg) by mouth Once per day. 90 tablet 12/10/19 25 Active meloxicam (Mobic) 7.5 MG tablet Take 1 tablet (7.5 mg) by mouth Once per day. 30 tablet 12/10/19 25 026 Active empagliflozin (Jardiance) 10 MG TAKE 1 TABLET BY MOUTH EVERY DAY 30 tablet 12/13/19 25 Active Aspirin Low Dose 81 MG EC tablet Take 1 tablet by mouth Once per day. 07/15/19 25 025 Discontinued(Re order (will not trigger notification to Pharmacy)) carvedilol (Coreg) 3.125 MG tablet TAKE ONE TABLET BY MOUTH TWICE A DAY, TAKE WITH MEAL/FOOD 07/15/19 025 Discontinued(Re order (will not trigger notification to Pharmacy)) furosemide (Lasix) 40 MG tablet Take 1 tablet by mouth Once per day. 07/15/19 025 Discontinued(Re order (will not trigger notification to Pharmacy)) spironolactone (Aldactone) 25 MG tablet Take 1 tablet by mouth Once per day. 07/15/19 025 Discontinued(Re order (will not trigger notification to Pharmacy)) Jardiance 10 MG Take 1 tablet (10 mg) by mouth Once per day. 90 tablet 08/05/19 025 Discontinued(Re order (will not trigger notification to Pharmacy)) meloxicam (Mobic) 7.5 MG tablet Take 1 tablet (7.5 mg) by mouth Once per day. 30 tablet 08/05/19 025 Discontinued(Re order (will not trigger notification to Pharmacy)) Jardiance 10 MG Take 1 tablet (10 mg) by mouth Once per day. 90 tablet 12/10/19 025 Discontinued(Re order (will not trigger notification to Pharmacy)) Active Problems Problem Noted Date Diagnosed Date Cervical cancer screening 12/13/2024 Assessment & Plan (12/13/2024 10:29 AM EDT): 59 y.o. here for cervical cancer screening. Will continue monitoring following ASCCP guidelines. Closed fracture of upper end of humerus 08/05/19 Chronic combined systolic an d diastolic congestive heart failure 08/04/2024 History of left breast cancer 08/04/2024 Resolved Problems Problem Noted Date Diagnosed Date Resolved Date Type 2 diabetes mellitus wit hout complication, without long-term current use of insulin 08/04/2024 08/04/2024 Encounter for screening mamm ogram for malignant neoplasm of breast 08/04/2024 08/04/2024 Encounters Date Type Department Care Team Description 12/13/2024 10:00 AM EDT Procedure Visit [facility] [address] [place] [address] Joanna Dillon MD Cervical cancer screening (Primary Dx); Encounter for immunization 12/13/2024 Travel 12/09/2024 9:30 AM EDT Office Visit [facility] [address] [place] [address] Naila Georges MD Chronic combined systolic and diastolic congestive heart failure (CMS/HCC) (Primary Dx); Encounter for immunization; Encounter for screening for malignant neoplasm of colon; Arthralgia, unspecified joint 12/09/2024 Refill [facility] [address] [place] [address] Naila Georges MD 12/09/2024 Travel 12/09/2024 Results Follow-Up [facility] [address] [place] [address] Naila Georges MD BI US Breast Limited Right 12/08/2024 Orders Only [facility] [address] [place] [address] Naila Georges MD 12/08/2024 Telephone [facility] [address] [place] [address] Naila Georges MD Chart Prep 11/05/2024 Telephone [facility] [address] [place] [address] Naila Georges MD Nurse Triage 10/28/2024 Telephone [facility] [address] [place] [address] Naila Georges MD TC- Canceled appt from Last 3 Months Immunizations Immunization Administration Dates Next Due Pneumococcal Conjugate PCV 20 12/13/2024 Tdap 12/09/2024 Social History Tobacco Use Types Packs/Day Years Used Date Smoking Tobacco: Never Passive Smoke Exposure: Current Smokeless Tobacco: Never Tobacco Cessation:Counseling Given: Not Answered Alcohol Use Standard Drinks/Week Comments Yes 0 (1 standard drink = 0.6 oz pur e alcohol) Social irregular Depression Answer Date Recorded Patient Health Questionnaire-9 Score 12/09/2024 Patient Health Questionnaire-9 Score 12 12/09/2024 [...] Mass Index 48.1 12/13/2024 10:02 AM EDT Plan of Treatment Health Maintenance Due Date Last Done Comments CT Colonography 1966 Colonoscopy 1966 Colorectal Cancer Screening 1966 FIT DNA/Cologuard 1966 FIT 1966 FOBT 1966 HIV Screening 1965 Sigmoidoscopy 1966 Hepatitis C Screening 01/02/1984 Hepatitis B Vaccines (1 of 3 - 19+ 3-dose series) 1985 Pap Smear 1987 Cervical Cancer Screening 06/10/2023 HPV/Cotest 06/10/2023 06/09/2018 COVID-19 Vaccine (1 - 2023-2 5 season) 2024 Influenza Vaccine (#1) 2024 Diagnostic Breast Imaging 06/07/2025 12/08/2024 Depression Monitoring 06/08/2025 12/09/2024 , 12/09/2024 SDOH Screening 07/28/2025 07/28/2024 Alcohol/Substance Use Screening 08/04/2025 08/04/2024 Disability Screening 12/09/2025 12/09/2024 Tobacco Screening 12/13/2025 12/13/2024 Zoster Vaccines (1 of 2) 12/13/2025 Pos tponed from 01/02/2016 (Patient Refused) DTaP/Tdap/Td Vaccines (2 - T d or Tdap) 12/09/2034 12/09/2024 RSV Patients and Patients Aged 60 years or older (1 - 1-dose 75+ series) 2041 Pneumococcal Vaccine: 50+ Years Completed 12/13/2024 HIB Vaccines Aged Out No longer eligi [...] Associated Diagnosis Comments HEPATIC FUNCTION PANEL Routine 10:38 AM EDT Chronic combined systolic and diastolic congestive heart failure (CMS/HCC) LIPID PANEL, STANDARD Routine 12/09/2024 10:38 AM EDT Chronic combined systolic and diastolic congestive heart failure (CMS/HCC) BASIC METABOLIC PANEL Routine 12/09/2024 10:38 AM EDT Chronic combined systolic and diastolic congestive heart failure (CMS/HCC) BI US BREAST LIMITED RIGHT Routine 12/08/2024 11:55 AM EDT BI MAMMOGRAM DIAGNOSTIC TOMOSYNTHESIS ADDED VIEW RIGHT Routine 12/08/2024 11:28 AM EDT BI MAMMOGRAM SCREENING TOMOSYNTHESIS RIGHT Routine 10/25/2024 9:14 AM EDT [facility] HISTORICAL HPV MRNA E6/E7 Routine 06/09/2018 10:17 AM EDT from Last 3 Months or Most Recently Relevant to Health Maintenance Results * (ABNORMAL) Hepatic Function Panel (12/09/2024 10:38 AM EDT) Bilirubin, Total 0.5 0.0 - 1.0 mg/dL [facility] Bilirubin, Direct 0.2 0.0 - 0.5 mg/dL [facility] Aspartate Amino Transferase 48(H) 5 - 31 U/L [facility] Comment:Slight Hemolysis.Int erpret result with caution. Alanine Aminotransferase 30 0 - 31 U/L [facility] Total Protein 8.1(H) 6.5 - 8.0 g/dL [facility] Albumin Level 4.5 3.5 - 5.0 g/dL [facility] Alkaline Phosphatase 90 39 - 117 U/L [facility] Blood Venous blood specimen / Unknown 12/09/2024 10:38 AM EDT 12/09/2024 2:14 PM EDT us Naila Georges MD LAB BLOOD ORDERABLES Final Resul t [facility] [address] [place] [phone] * (ABNORMAL) Lipid Panel, Standard (12/09/2024 10:38 AM EDT) Triglycerides 119 <150 mg/dL [facility] Comment:Desirable Triglyceri de: less than 150 mg/dLBorderline High Triglyceride 150-199 mg/dLHigh Triglyceride: 200-499 mg/dLVery High Triglyceride: greater than or equal to 5OO mg/dL Cholesterol 203(H) <200 mg/dL [facility] Comment:Desirable Cholestero l: less than 200 mg/dLBorderline High Cholesterol: 200-239 mg/dLHigh Cholesterol: greater than 239 mg/dL LDL Cholesterol Calculated 117(H) <100 mg/dL [facility] Comment:Desirable LDL: less than 100 mg/dLNear Optimal/Above Optimal LDL: 110- 129 mg/dLBorderline High LDL: 130-159 mg/dLHigh LDL: 160-189 mg/dLVery High LDL: greater than or equal to 190 mg/dL HDL Cholesterol 63 >40 mg/dL [facility] Comment:Desirable HDL: great er than 40 mg/dL Note: This HDL assay may give artificially low results in patients with liver disease. Blood Venous blood specimen / Unknown 12/09/2024 10:38 AM EDT 12/09/2024 2:14 PM EDT us Naila Georges MD LAB BLOOD ORDERABLES Final Resul t [facility] [address] [place] [address] [phone] * (ABNORMAL) Basic Metabolic Panel (12/09/2024 10:38 AM EDT) Sodium 141 135 - 145 mmol/L [facility] Potassium 5.0 3.3 - 5.1 mmol/L [facility] Comment:Slight Hemolysis.Int erpret result with caution. Chloride 104 96 - 108 mmol/L [facility] Carbon Dioxide 30(H) 22 - 29 mmol/L [facility] Anion Gap 12 12 - 20 [facility] Urea Nitrogen (BUN) 11 9 - 16 mg/dL [facility] Creatinine, Serum 0.98 0.5 - 1.4 mg/dL [facility] Estimated Glomerular Filt Rate 58 [facility] Comment:Chronic Kidney Disea se: Estimated GFR < 60 mL/min/1.15u8Gdhati Kidney Disease: Estimated GFR < 15 mL/min/1.73m2 Glucose 84 60 - 115 mg/dL [facility] Calcium 9.6 8.4 - 10.2 mg/dL [facility] Blood Venous blood specimen / Unknown 12/09/2024 10:38 AM EDT 12/09/2024 2:14 PM EDT Naila Georges MD LAB BLOOD ORDERABLES Final Resul t [facility] [address] [place] [phone] * BI US Breast Limited Right (12/08/2024 11:55 AM EDT) Anatomical Region Laterality Modality Breast Right Ultrasound 12/08/2024 11:5 5 AM EDT Narrative 12/08/2024 12:10 PM EDT [facility] [address] [place] [address] Ultrasound Report Signed Patient: Malissa Lui MR#: [id number] 1590 : 1965 Acct:[id number] Age/Sex: 59 / F ADM Date: 12/08/24 Loc: HO.MAMMO Attending Dr: Naila Georges MD Ordering Physician: Naila Georges MD Date of Service: 12/08/24 Procedure(s): US breast RT limited mamm only Accession Number(s): [id number] cc: Naila Georges MD Reason for Exam: RT BR ASYMMETRY EXAMINATION: MM DIAGNOSTIC DIGITAL BREAST TOMOSYNTHESIS, RIGHT [...] is a correlate for the mammographic asymmetry. US/US breast RT limited mamm only IMPRESSION: Hypoechoic oval circumscribed solid mass versus [...] Vazquez DO in OV> 12/08/24 1207 DD/ 1155 TD/TT: 12/08/24 1206 Seo Specialist: Procedure Note Donotuseinterpreter, Image - 12/08/2024 [facility] [address] [place], [place] [address] Ultrasound Report Signed Patient: Malissa LuiMR#: [id number] 1590 : 1965Acct:[id number] Age/Sex: 59 / FADM Date: 12/08/24 Loc: HO.MAMMO Attending Dr: Naila Georges MD Ordering Physician: Naila Georges MD Date of Service: 12/08/24 Procedure(s): US breast RT limited mamm only Accession Number(s): [id number] cc: Naila Georges MD Reason for Exam: RT BR ASYMMETRY EXAMINATION: MM DIAGNOSTIC DIGITAL BREAST TOMOSYNTHESIS, RIGHT [...] is a correlate for the mammographic asymmetry. US/US breast RT limited mamm only IMPRESSION: Hypoechoic oval circumscribed solid mass versus [...] Vazquez DO in OV> 12/08/24 1207 DD/ 1155 TD/TT: 12/08/24 1206 Seo Specialist: Naila Georges MD IMG US PROCEDURES Final Result * BI Mammogram Diagnostic Tomosynthesis added right (12/08/2024 11:28 AM EDT) Anatomical Region Laterality Modality Breast Left Mammography 12/08/2024 11:2 8 AM EDT Narrative 12/08/2024 12:10 PM EDT [place] [facility] [address] [place] [address] Mammography Report Signed Patient: Malissa Lui MR#: [id number] 1590 : 1965 Acct:[id number] Age/Sex: 59 / F ADM Date: 12/08/24 Loc: HO.MAMMO Attending Dr: Naila Georges MD Ordering Physician: Naila Georges MD Results: 3.6MPro bably Benign Finding - Short 6 M F/U Suggested Date of Service: 12/08/24 Follow Up: 6 Month F/U Procedure(s): MM tomosynthesis added views R Accession Number(s): [id number] cc: Naila Georges MD EXAMINATION: MM DIAGNOSTIC [...] 12/08/24 1207 DD/ 1128 TD/TT: 12/08/24 1148 Seo Specialist: Procedure Note Donotuseinterpreter, Image - 12/08/2024 [place] [facility] [address] [place], [place] [address] Mammography Report Signed Patient: Malissa LuiMR#: [id number] 1590 : 1965Acct:[id number] Age/Sex: 59 / FADM Date: 12/08/24 Loc: HO.MAMMO Attending Dr: Naila Georges MD Ordering Physician: Naila Georges MDResults: 3.6MPro bably Benign Finding - Short 6 M F/U Suggested Date of Service: 12/08/24Follow Up: 6 Month F/U Procedure(s): MM tomosynthesis added views R Accession Number(s): [id number] cc: Naila Georges MD EXAMINATION: MM DIAGNOSTIC [...] 12/08/24 1207 DD/ 1128 TD/TT: 12/08/24 1148 Seo Specialist: Naila Georges MD IMG BI PROCEDURES Final Result * BI Mammogram Screening Tomosynthesis Right (10/25/2024 9:14 AM EDT) Anatomical Region Laterality Modality Breast Right Mammography 10/25/2024 9:14 AM EDT Narrative 11/02/2024 10:46 AM EDT [facility] [address] [place] [address] Mammography Report Signed Patient: Malissa Lui MR#: [id number] 1590 : 1965 Acct:[id number] Age/Sex: 59 / F ADM Date: 10/25/24 Loc: HO.MAMMO Attending Dr: Naila Georges MD Ordering Physician: Naila Georges MD Results: 0Incomp lete: Needs Additional Imaging Evaluation Date of Service: 10/25/24 Follow Up: Additional Imagi ng Procedure(s): MM tomosynthesis screening RT Accession Number(s): [id number] cc: Naila Georges MD EXAMINATION: MM SCREENING [...] 11/02/24 1044 DD/ 0914 TD/TT: 10/25/24 0943 Seo Specialist: Procedure Note Donotuseinterpreter, Image - 11/02/2024 [facility] [address] [place] [address] Mammography Report Signed Patient: Malissa Lui#: [id number] 1590 : 1965Acct:[id number] Age/Sex: 59 / FADM Date: 10/25/24 Loc: HO.MAMMO Attending Dr: Naila Georges MD Ordering Physician: Naila Georges MDResults: 0Incomp lete: Needs Additional Imaging Evaluation Date of Service: 10/25/24Follow Up: Additional Imagi ng Procedure(s): MM tomosynthesis screening RT Accession Number(s): [id number] cc: Naila Georges MD EXAMINATION: MM SCREENING [...] 11/02/24 1044 DD/ 0914 TD/TT: 10/25/24 0943 Seo Specialist: Naila Georges MD [facility] BI PROCEDURES Edited Result - Final * HPV mRNA E6/E7 (06/09/2018 10:17 AM EDT) HPV mRNA E6/E7 Not Detected NOT DETECTED [facility] Comment: This test was performed using the APTIMA(R) HPV Assay ([employer] This assay detects E6/E7 viral messenger RNA (mRNA) from 14 high-risk HPV types (16,18,31,33,35,39,45,51, 52,56,58,59,66,68). For additional information please refer to: http://education.EasyCopay.youmag/faq/HCW216s1 (This link is being provided for informational/ educational purposes only.) The analytical performance characteristics of this assay have been determined by [employer] [place], [place]. The modifications have not been cleared or approved by the FDA. This assay has been validated pursuant to the CLIA regulations and is used for clinical purposes. Test Performed by [facility] [place], [facility], [address] [place], [place] Dalton Poon M.D., Ph.D., Director of Laboratories , CLIA [id number] Please note: Effective 12/11/2015, HPV testing will be performed using [employer]'s APTIMA test which targets mRNA. Detecting mRNA instead of DNA, as in older methods, offers significant improvements in specificity. 06/09/2018 10:1 7 AM EDT us Naila Georges MD HISTORICAL/NON ORDERABLE LABS Fi nal Result [facility] formerly [facility] Anywhere [address] from Last 3 Months or Most Recently Relevant to Health Maintenance Insurance [facility] [address] [place] [id number] [place] [id number] Care Teams Senior Quality Methods Specialist Relationship Specialty Start Date End Date Naila Georges MD [address] [place] [address] [place] [phone] PCP - General Family Medicine 08/04/24
--- OUTSIDE RECORDS SUMMARY | 2024-12-13 20:27 | XMS_ITS | Encounter Summary ---
Author Organization [employer] Address [address] [facility] 7t [place] [address] Care Team Providers Care Real Estate Administrator Name Role Phone Naila Georges MD Primary Care Provider [phone] Encounter Details Date Type Department Care Team ([facility] st Contact Info) Description 05/20/2024 Telephone [facility] [address] [place] [address] Ovidio Barber MD [address] [place], [place] [phone] Social History Tobacco Use Types Packs/Day Years [...] Medical Concern: Insurance name : Location : [facility] Demographic information updated documented in this encounter Plan of Treatment Not on file documented as of this encounter Visit Diagnoses Not on filedocumented in this encounter Care Teams Real Estate Administrator Relationship Specialty Start Date End Date Naila Georges MD [address] [place] [address] PCP - General Family Medicine 08/04/24 documented as of this encounter
--- OUTSIDE RECORDS SUMMARY | 2024-12-13 20:27 | XMS_ITS | Clinical Summary ---
Author Organization [facility] ity Address [address] [place] [address] Care Team Providers Care Wire Splicer Name Role Phone Unavailable Primary Care Provider [...] 02/27/2022 Social Influencers of Health Screening 02/27/2022 Depression Screening 03/31/2024 COVID-19 Vaccine ( - 2023-2 5 season) 2024 Influenza Vaccine (#1) 2024 HIB Vaccines Aged [...]
--- OUTSIDE RECORDS SUMMARY | 2024-12-13 20:28 | XMS_ITS | Encounter Summary ---
Author Organization [employer] Address 75 [facility] 7t [place] [address] Care Team Providers Care Advertising Teacher Name Role Phone Naila Georges MD Primary Care Provider [phone] Reason for Visit * Reason Onset Date Comments Chart Prep 12/08/2024 Encounter Details Date Type Department Care Team ([facility] st Contact Info) Description 12/08/2024 Telephone [facility] [address] [place], [place] [phone] Naila Georges MD [address] [place], [place] [phone] Chart Prep Social History Tobacco Use Types [...] on filedocumented in this encounter Care Teams Advertising Teacher Relationship Specialty Start Date End Date Naila Georges MD [address] [place] [phone] PCP - General Family Medicine 08/04/24 documented as of this encounter
--- OUTSIDE RECORDS SUMMARY | 2024-12-13 20:28 | XMS_ITS | Encounter Summary ---
Author Organization [employer] Address 75 [facility] 7t [place] [address] Care Team Providers Care Strike On Machine Operator Name Role Phone Naila Georges MD Primary Care Provider [phone] Encounter Details Date Type Department Care Team (Latest Contact Info) Description 12/13/2024 Travel Social History Tobacco Use Types Packs/Day Years Used Date Smoking Tobacco: Never Passive Smoke Exposure: Current Smokeless Tobacco: Never Alcohol Use Standard Drinks/Week Comments Yes 0 [...] documented as of this encounter Care Teams Strike On Machine Operator Relationship Specialty Start Date End Date Naila Georges MD [address] [place] [address] PCP - General Family Medicine 08/04/24 documented as of this encounter
--- OUTSIDE RECORDS SUMMARY | 2024-12-13 20:28 | XMS_ITS | Encounter Summary ---
Author Organization [employer] Address 75 [facility] 7t [place] [address] Care Team Providers Care Seed Corn Manager Production Name Role Phone Naila Georges MD Primary Care Provider [phone] Encounter Details Date Type Department Care Team ([facility] Contact Info) Description 12/08/2024 Orders Only [facility] [address] [place], [place] [phone] Naila Georges MD [address] [place], [place] [phone] Social History Tobacco Use Types Packs/Day Years [...] on file documented as of this encounter Procedures Procedure Name Priority Date/Time Associated Diagnosis Comments BI US BREAST LIMITED RIGHT Routine 12/08/2024 11:55 AM EDT BI MAMMOGRAM DIAGNOSTIC TOMOSYNTHESIS ADDED VIEW RIGHT Routine 12/08/2024 11:28 AM EDT documented in this encounter Results * BI US Breast Limited Right (12/08/2024 11:55 AM EDT) Anatomical Region Laterality Modality Breast Right Ultrasound 12/08/2024 11:5 5 AM EDT Narrative 12/08/2024 12:10 PM EDT [address] [place] [address] Ultrasound Report Signed Patient: Malissa Lui MR#: [id number] 1590 : 1965 Acct:[id number] Age/Sex: 59 / F ADM Date: 12/08/24 Loc: HO.MAMMO Attending Dr: Naila Georges MD Ordering Physician: Naila Georges MD Date of Service: 12/08/24 Procedure(s): US breast RT limited mamm only Accession Number(s): [id number] cc: Naila Georges MD Reason for Exam: [...] 12/08/24 1207 DD/ 1155 TD/TT: 12/08/24 1206 Ship Pilot Dispatcher: Procedure Note Donotuseinterpreter, Image - 12/08/2024 [place] [facility] [address] [place] [address] Ultrasound Report Signed Patient: Malissa Lui#: [id number] 1590 : 1965Acct:[id number] Age/Sex: 59 / FADM Date: 12/08/24 Loc: HO.MAMMO Attending Dr: Naila Georges MD Ordering Physician: Naila Georges MD Date of Service: 12/08/24 Procedure(s): US breast RT limited mamm only Accession Number(s): [id number] cc: Naila Georges MD Reason for Exam: [...] 12/08/24 1207 DD/ 1155 TD/TT: 12/08/24 1206 Ship Pilot Dispatcher: Naila Georges MD IMG US PROCEDURES Final Result * BI Mammogram Diagnostic Tomosynthesis added right (12/08/2024 11:28 AM EDT) Anatomical Region Laterality Modality Breast Left Mammography 12/08/2024 11:2 8 AM EDT Narrative 12/08/2024 12:10 PM EDT [place] [facility] [address] [place], [place] [address] Mammography Report Signed Patient: Malissa Lui MR#: [id number] 1590 : 1965 Acct:[id number] Age/Sex: 59 / F ADM Date: 12/08/24 Loc: HO.MAMMO Attending Dr: Naila Georges MD Ordering Physician: Naila Georges MD Results: 3.6MPro bably Benign Finding - Short 6 M F/U Suggested Date of Service: 12/08/24 Follow Up: 6 Month F/U Procedure(s): MM tomosynthesis added views R Accession Number(s): [id number] cc: Naila Georges MD EXAMINATION: MM DIAGNOSTIC [...] 12/08/24 1207 DD/ 1128 TD/TT: 12/08/24 1148 Ship Pilot Dispatcher: Procedure Note Donotuseinterpreter, Image - 12/08/2024 [facility] [address] [place] [address] Mammography Report Signed Patient: Malissa LuiMR#: [id number] 1590 : 1965Acct:[id number] Age/Sex: 59 / FADM Date: 12/08/24 Loc: HO.MAMMO Attending Dr: Naila Georges MD Ordering Physician: Naila Georges MDResults: 3.6MPro bably Benign Finding - Short 6 M F/U Suggested Date of Service: 12/08/24Follow Up: 6 Month F/U Procedure(s): MM tomosynthesis added views R Accession Number(s): [id number] cc: Naila Georges MD EXAMINATION: MM DIAGNOSTIC [...] Esperanza Vazquez DO 12/08/2024 12:07 PM EDT Workstation: [employer] Dictated By: Esperanza Vazquez DO Signed By: <Electronically signed by Esperanza Vazquez DO in OV> 12/08/24 1207 DD/ 1128 TD/TT: 12/08/24 1148 Ship Pilot Dispatcher: Naila Georges MD IMG BI PROCEDURES Final Result documented in this encounter Visit Diagnoses Not on filedocumented in this encounter Care Teams Seed Corn Manager Production Relationship Specialty Start Date End Date Naila Georges MD [address] [place] [phone] PCP - General Family Medicine 08/04/24 documented as of this encounter
== END 2024-12-13 15:02 | disposition home or self-care (01) ==
LOC: HO.LNP 15:01
PROVIDERS: Visit Provider Family Medicine
DX: Z12.4 Encounter for screening for malignant neoplasm of cervix (principal)
CPT/HCPCS: 87626; 88175

== ENCOUNTER 2024-12-22 10:21 | Outpatient (AMB) | payer MEDICAID, SELFPAY ==
--- NOTE | 2024-12-22 10:26 | A.OFFVIS_ITS ---
Vital Signs 12/22/24 10:27 Height 5 ft 4 in Weight 261 lb 14.546 oz BMI 45.0 BP 133/72 Blood Pressure Location Rt brachial Position Sitting Pulse 92 Intake Visit Reasons: colo screening Intake Note: New patient in office today for colonoscopy screening. CC: Patient denies havint any GI symptoms today. She does not recall the name of her medications or when she had her last colonoscopy done but she believes it was more than 10n years ago. Tile Grinder Required: No Accompanied by: Significant Other Allergies No Known Allergies (No Known Allergies*) Allergy (Verified 12/22/24 10:31) HPI HPI colo screening: Details: 59-year-old female here for preprocedural meeting to discuss a screening colonoscopy. She is referred by [facility]. PMX Morbid obesity-BMI 44.6 CHF Hypertension Cardiomegaly History of breast cancer insomnia * SURGICAL HISTORY Mastectomy Colonoscopy 2017-Panitch negative study * ALLERGIES: NKDA * [facility] LABS: Laboratory Tests 12/09/24 10:38 Estimated GFR 58 Direct Bilirubin 0.2 AST 48 H ALT 30 Alkaline Phosphatase 90 TODAY'S VISIT Prior colonoscopy 2017 neg study PFSH Medical History (Updated 12/22/24 @ 10:42 by ABI Daniel) Hypertension Surgical History (Updated 12/22/24 @ 10:40 by ABI Daniel) H/O colonoscopy H/O mastectomy Social History Household Members: Other Household Members Other:: son Housing: Apartment Do you presently have visiting nurse or other home services: No Alcohol intake: current Patient Tobacco Use Status: Never used Tobacco Substance Use Type: Marijuana service: No Review of Systems Const Denies fatigue, Denies fever(s), Denies night sweats, Denies poor appetite and Denies weight loss Eyes Details: glasses Reports requires corrective lenses ENT Reports Normal hearing present, Denies dental pain, Denies dysphagia, Denies hearing loss, Denies mouth pain, Denies odynophagia, Denies throat swelling, Denies tongue swelling and Reports other (Dentition adequate) Card Reports no additional complaints Resp Reports no additional complaints GI Details: Denies abdominal pain, Denies melena, Denies bloating, Denies hematochezia, Denies constipation, Denies GI cramping, Denies dysphagia, Denies excessive flatus, Denies early satiety, Denies heartburn, Denies diarrhea, Denies nausea, Denies odynophagia, Denies vomiting and Denies hematemesis Musc Reports abnormal gait, Reports myalgias and Reports arthralgias Skin/Breast Denies pruritus, Denies lesions, Denies rash and Denies jaundice Neuro Reports Normal hearing present, Denies Abnormal speech present and Reports abnormal gait Endo Denies fatigue Aller/Immun Denies throat swelling and Denies tongue swelling Physical Exam Vital Signs: Last Vital Signs Pulse 92 12/22/24 10:27 BP 133/72 12/22/24 10:27 BMI result Body Mass Index 45.0 Const General: cooperative, no acute distress, well developed and well groomed Nutritional Appearance: well nourished and obese morbidly obese Orientation/consciousness: oriented to person, oriented to place and oriented to time Limitations: No language barrier and ambulation with cane HEENT Head: Yes normocephalic and Yes atraumatic Eyes General: appearance normal, both eyes and all related structures Pupils: Equal, round and reactive pupils present Neck Neck: Yes normal visual inspection and Yes no lymphadenopathy Thyroid: Thyroid normal Resp Effort & Inspection: normal respiratory effort and able to speak in complete sentences Auscultation: clear to auscultation bilaterally Cardio Rate: regular rate Rhythm: regular rhythm Heart sounds: Normal, physiologic split S2 sound present Peripheral pulses: radial pulses present and posterior tibial pulses present GI Inspection: No distended, Yes Abdominal panniculus present and Yes obesity Palpation (GI): Soft to palpation, nontender, no guarding, not rigid and No hepatosplenomegaly present Percussion: Yes normal to percussion Auscultation: normal bowel sounds Rectal Exam - Female: deferred Skin General skin exam: no rashes or lesions noted, turgor normal, skin not dry, no jaundice, No spider nevi and no striae Rashes: no rashes Nails: normal Neuro General: oriented to person, oriented to place and oriented to time Cranial nerves: Yes Equal, round and reactive pupils present and Yes Normal hearing present Speech: No Abnormal speech present Extrem General: Yes normal to inspection, No clubbing, No cyanosis and No edema Psych Appearance: grossly normal and well kempt Mental Status: mental status grossly normal Speech and movement: Normal speech and movement present Affect: normal affect Attitude: cooperative Thought process: Normal thought process present and not confabulating Thought content: Normal thought content present Insight: Fair insight present (Psych) Judgement: Fair judgement present (Psych) Assessment & Plan Assessment & Plan (1) Congestive heart failure (CHF): Code(s): I50.9 - Heart failure, unspecified Category: Medical (2) Cardiomyopathy: Code(s): I42.9 - Cardiomyopathy, unspecified Category: Medical (3) Morbid obesity with BMI of 40.0-44.9, adult: Code(s): E66.01 - Morbid (severe) obesity due to excess calories; Z68.41 - Body mass index [BMI] 40.0-44.9, adult Category: Medical (4) Pre-op examination: Code(s): Z01.818 - Encounter for other preprocedural examination Category: Medical Plan Her last colonoscopy was in [address] Martinez and she had a tubular adenoma. She denies any bowel or upper stomach problems. She has known cardiomyopathy and heart failure disease and she sees Dr. Prakash here and we will need clearance from him prior to the procedure. She denies any respiratory problems. There are no prior problems with anesthesia or sedation. There are no infectious disease problems. Again, she has personal history of colon polyps. Orders: Referrals GI Procedure Notification Z01.818 - Encounter for other preprocedural examination Medications: New peg 3350-electrolytes 236-22.74-6.74 -5.86 gram (Golytely) until fecal effluent is clear; do not exceed a total volume of 2,000 mL 240 mL PO Q10M 4,000 mL 0RF 1 day Z12.11 - Encounter for screening for malignant neoplasm of colon bisacodyl (Dulcolax (bisacodyl)) 10 mg (2 x 5 mg) PO BEDTIME 4 tabs 0RF 2 days Coding Level of Care Code New Pt Level 3 (95708) Diagnoses Congestive heart failure (CHF) I50.9 Cardiomyopathy I42.9 Morbid obesity with BMI of 40.0-44.9, adult E66.01; Z68.41 Pre-op examination Z01.818
[2024-12-22 10:27] VITALS: BP 133/72; PULSE 92; BMI 45.0
--- OUTSIDE RECORDS SUMMARY | 2024-12-22 12:49 | XMS_ITS | Encounter Summary ---
Author Organization [employer] Address [address] [facility] 7t [place] [address] Care Team Providers Care Vine Pruner Name Role Phone Naila Georges MD Primary Care Provider [phone] Encounter Details Date Type Department Care Team ([facility] st Contact Info) Description 05/20/2024 Telephone [facility] [address] [place] [address] Ovidio Barber MD [address] [place], [place] [phone] Social History Tobacco Use Types Packs/Day Years [...] Medical Concern: Insurance name : Location : [facility] Demographic information updated documented in this encounter Plan of Treatment Not on file documented as of this encounter Visit Diagnoses Not on filedocumented in this encounter Care Teams Vine Pruner Relationship Specialty Start Date End Date Naila Georges MD [address] [place] [phone] PCP - General Family Medicine 08/04/24 documented as of this encounter
--- OUTSIDE RECORDS SUMMARY | 2024-12-22 12:49 | XMS_ITS | Clinical Summary ---
Author Organization [facility] ity Address [address] [place] [address] Care Team Providers Care Criminal Attorney Name Role Phone Unavailable Primary Care Provider [...]
--- OUTSIDE RECORDS SUMMARY | 2024-12-22 12:49 | XMS_ITS | Encounter Summary ---
Author Organization [employer] Address [address] [facility] 7[address] [place] [address] Care Team Providers Care Office Machine Service Supervisor Name Role Phone Naila Georges MD Primary Care Provider [phone] Encounter Details Date Type Department Care Team ([facility] Contact Info) Description 12/09/2024 Results Follow-Up [facility] [address] [place], [place] [phone] Naila Georges MD [address] [place] [address] BI US Breast Limited Right Social History [...] MD - 12/09/2024 9:08 AM EDT 6 [facility] follow up BRADS 3.Needs tracking documented in this encounter Plan of Treatment Not on file documented as of this encounter Visit Diagnoses Not on filedocumented in this encounter Additional Health Concerns Assessment Noted Time PHQ-9 Depression Total Score: 12 025 9:34 AM EDT documented as of this encounter Care Teams Office Machine Service Supervisor Relationship Specialty Start Date End Date Naila Georges MD [address] [place] [phone] PCP - General Family Medicine 08/04/24 documented as of this encounter
--- OUTSIDE RECORDS SUMMARY | 2024-12-22 12:50 | XMS_ITS | Clinical Summary ---
Author Organization [employer] Address [address] [facility] 7t [place] [address] Care Team Providers Care Geophysics Teacher Name Role Phone Naila Georges MD Primary Care Provider [phone] Allergies No known active allergies Medications Entresto [...] Description 12/13/2024 10:00 AM EDT Procedure Visit [facility] [address] [place] [address] Joanna Dillon MD Cervical cancer screening (Primary Dx); Encounter for immunization 12/13/2024 Travel 12/09/2024 9:30 AM EDT Office Visit [facility] [address] [place] [address] Naila Georges MD Chronic combined systolic and diastolic congestive heart failure (CMS/HCC) (Primary Dx); Encounter for immunization; Encounter for screening for malignant neoplasm of colon; Arthralgia, unspecified joint 12/09/2024 Refill [facility] [address] [place] [address] Naila Georges MD 12/09/2024 Travel 12/09/2024 Results Follow-Up [facility] [address] [place] [address] Naila Georges MD BI US Breast Limited Right 12/08/2024 Orders Only [facility] [address] [place] [address] Naila Georges MD 12/08/2024 Telephone [facility] [address] [place] [address] Niala Georges MD Chart Prep 11/05/2024 Telephone [facility] [address] [place] [address] Naila Georges MD Nurse Triage 10/28/2024 Telephone [facility] [address] [place] [address] Naila Georges MD TC- Canceled appt from [...] of 3 - 19+ 3-dose series) 1985 COVID-19 Vaccine (2023-2 5 season) 2024 Influenza Vaccine (#1) 2024 Diagnostic Breast Imaging 06/07/2025 12/08/2024 Depression Monitoring 06/08/2025 12/09/2024 , 12/09/2024 SDOH Screening 07/28/2025 07/28/2024 Alcohol/Substance Use Screening 08/04/2025 08/04/2024 Disability Screening 12/09/2025 12/09/2024 Tobacco Screening 12/13/2025 12/13/2024 Zoster Vaccines (1 of 2) 12/13/2025 Pos tponed from 01/02/2016 (Patient Refused) Pap Smear 12/14/2027 12/13/2024 Cervical Cancer Screening 12/13/2029 HPV/Cotest 12/13/2029 12/13/2024, 06/09/2018 DTaP/Tdap/Td Vaccines (2 - T d or [...] Procedure Name Priority Date/Time Associated Diagnosis Comments PAP SMEAR Routine 12/13/2024 10:20 AM EDT Cervical cancer screening HPV DNA, LOW/HIGH RISK Routine 10:20 AM EDT Cervical cancer screening HEPATIC FUNCTION PANEL Routine 10:38 AM EDT [...] TOMOSYNTHESIS RIGHT Routine 10/25/2024 9:14 AM EDT from Last 3 Months Results * HPV High Risk with Reflex to Subtypes (12/13/2024 10:20 AM EDT) HPV High Risk Negative Negative [facility] HPV Genotype 16 Negative Negative [facility] HPV Genotype 18 Negative Negative [facility] Comment:HPV testing performe d at [facility] (CLIA#[id number]), [address] [place] [address].Testing for HPV was performed using the Carolin MARY 6800system. The presence of HPV in the female genital tract isassociated with a number of diseases, including cervicalcarcinoma. The HPV DNA high risk pool tests for HPV 31, 33,35, 39, 45, 51, 52, 56, 58, 59, 66 and 68. The testing forHPV 16 and 18 genotypes has also been performed. A positiveresult indicates detection of nucleic acid sequences fromone or more subtypes, whereas a negative result indicatessuch sequences were not detected. Pap Vial 12/13/2024 10:2 0 AM EDT 12/13/2024 3:49 PM EDT us Joanna Dillon MD LAB BLOOD ORDERABLES Final Re sult [facility] [address] [place] [phone] * Pap Smear (12/13/2024 10:20 AM EDT) Swab 12/13/2024 10:2 0 AM EDT 12/13/2024 3:49 PM EDT Narrative [facility] - 12/16/2024 2:36 PM EDT ----- ------- Name: HuMalissa Age/Sex: 59/F : 1965 Unit#: [id number] Attend Dr: Joanna Dillon MD Re12/13/24 Status: DEP REF Location: HO.LNP Disch: ----- ------- SPEC : [id number] RECD: 12/13/24-1548 STATUS: DOREEN FARFAN NUM: [id number] TANJA: 12/13/24-[address]: Joanna Dillon MD ENTERED: 12/13/24-827 SP TYPE: Pap Smr OTHR DR: ORDERED: Pap Smear Interpretation Satisfactory for evaluation. Negative for intraepithelial lesion or malignancy. HPV High Risk: Negative HPV Genotyping 16: Negative HPV Genotyping 18: Negative Clinical Information LMP: Postmenopausal Previous PAP test: Unknown date, NILM, negative high risk HPV Other history: Cervical cancer screening Material Received ThinPrep-Vaginal/Cervical PAP Disclaimer As of January 21, 2024, the technical services to include automated prescreening performed by the ThinPrep Imaging System, PAP screening and HPV testing will be performed at [facility] (CLIA #[id number]), [address] [place] [address]. Testing for HPV was performed using the Carolin MARY 6800 system. The presence of HPV in the female genital tract is associated with a number of diseases, including cervical carcinoma. The HPV DNA high risk pool tests for HPV 31, 33, 35, 39, 45, 51, 52, 56, 58, 59, 66 and 68. The testing for HPV 16 and 18 genotypes has also been performed. A positive result indicates detection of nucleic acid sequences from one or more subtypes, whereas a negative result indicates such sequences were not detected. All professional services are performed by [facility] ([address] [place] [address]; ; CLIA #[id number]). The PAP Test is a screening procedure with the inherent possibility of both false negative and false positive results. Results should be interpreted in the context of historic and current clinical findings. Reliability of the PAP Test is enhanced by performing the test on a regular repetitive basis. ----- ------- Signed (signature on file) ANNIA Marroquin (ASCP) 12/16/24 1436 ----- ------- END OF REPORT Joanna Dillon MD LAB CYTOLOGY ORDERABLES Final Result Performing Organization Address [facility] Co de Phone Number [facility] [address] [place] [address] [phone] * (ABNORMAL) Hepatic Function Panel (12/09/2024 10:38 AM EDT) Bilirubin, Total 0.5 0.0 - 1.0 mg/dL [facility] Bilirubin, Direct 0.2 0.0 - 0.5 mg/dL [facility] Aspartate Amino Transferase 48(H) 5 - 31 U/L [facility] Comment:Slight Hemolysis.Int erpret result with caution. Alanine Aminotransferase 30 0 - 31 U/L [facility] Total Protein 8.1(H) 6.5 - 8.0 g/dL [facility] Albumin Level 4.5 3.5 - 5.0 g/dL [facility] Alkaline Phosphatase 90 39 - 117 U/L [facility] Blood Venous blood specimen / Unknown 12/09/2024 10:38 AM EDT 12/09/2024 2:14 PM EDT Naila Georges MD LAB BLOOD ORDERABLES Final Resul t Performing Organization Address [facility] Co de Phone Number [facility] [address] [place], [place] [phone] * (ABNORMAL) Lipid Panel, Standard (12/09/2024 10:38 AM EDT) Triglycerides 119 <150 mg/dL [facility] Comment:Desirable Triglyceri de: less than 150 mg/dLBorderline High Triglyceride 150-199 mg/dLHigh Triglyceride: 200-499 mg/dLVery High Triglyceride: greater than or equal to 5OO mg/dL Cholesterol 203(H) <200 mg/dL [facility] Comment:Desirable Cholestero l: less than 200 mg/dLBorderline High Cholesterol: 200-239 mg/dLHigh Cholesterol: greater than 239 mg/dL LDL Cholesterol Calculated 117(H) <100 mg/dL [facility] Comment:Desirable LDL: less than 100 mg/dLNear Optimal/Above Optimal LDL: 110- 129 mg/dLBorderline High LDL: 130-159 mg/dLHigh LDL: 160-189 mg/dLVery High LDL: greater than or equal to 190 mg/dL HDL Cholesterol 63 >40 mg/dL [facility] Comment:Desirable HDL: great er than 40 mg/dL Note: This HDL assay may give artificially low results in patients with liver disease. Blood Venous blood specimen / Unknown 12/09/2024 10:38 AM EDT 12/09/2024 2:14 PM EDT us Naila Georges MD LAB BLOOD ORDERABLES Final Resul t [facility] [address] [place] [phone] * (ABNORMAL) Basic Metabolic Panel (12/09/2024 10:38 AM EDT) Sodium 141 135 - 145 mmol/L [facility] Potassium 5.0 3.3 - 5.1 mmol/L [facility] Comment:Slight Hemolysis.Int erpret result with caution. Chloride 104 96 - 108 mmol/L [facility] Carbon Dioxide 30(H) 22 - 29 mmol/L [facility] Anion Gap 12 12 - 20 [facility] Urea Nitrogen (BUN) 11 9 - 16 mg/dL [facility] Creatinine, Serum 0.98 0.5 - 1.4 mg/dL [facility] Estimated Glomerular Filt Rate 58 [facility] Comment:Chronic Kidney Disea se: Estimated GFR < 60 mL/min/1.81w2Qxwrwb Kidney Disease: Estimated GFR < 15 mL/min/1.73m2 Glucose 84 60 - 115 mg/dL [facility] Calcium 9.6 8.4 - 10.2 mg/dL [facility] Blood Venous blood specimen / Unknown 12/09/2024 10:38 AM EDT 12/09/2024 2:14 PM EDT Naila Georges MD LAB BLOOD ORDERABLES Final Resul t [facility] [address] [place] [phone] * BI US Breast Limited Right (12/08/2024 11:55 AM EDT) Anatomical Region Laterality Modality Breast Right Ultrasound 12/08/2024 11:5 5 AM EDT Narrative 12/08/2024 12:10 PM EDT [facility] [address] [place] [address] Ultrasound Report Signed Patient: Malissa Lui MR#: [id number] : 1965 Acct:[id number] Age/Sex: 59 / F ADM Date: 12/08/24 Loc: HO.MAMMO Attending Dr: Naila Georges MD Ordering Physician: Naila Georges MD Date of Service: 12/08/24 Procedure(s): US breast RT limited mamm only Accession Number(s): [id number] cc: Naila Georges MD Reason for Exam: [...] 12/08/24 1207 DD/ 1155 TD/TT: 12/08/24 1206 [employer]: Procedure Note Donotuseinterpreter, Image - 12/08/2024 [facility] [address] [place] [address] Ultrasound Report Signed Patient: Malissa LuiMR#: [id number] : 1965Acct:[id number] Age/Sex: 59 / FADM Date: 12/08/24 Loc: HO.MAMMO Attending Dr: Naila Georges MD Ordering Physician: Naila Georges MD Date of Service: 12/08/24 Procedure(s): US breast RT limited mamm only Accession Number(s): [id number] cc: Naila Georges MD Reason for Exam: [...] 12/08/24 1207 DD/ 1155 TD/TT: 12/08/24 1206 Inspector [employer] Commodities: us Naila Georges MD [facility] [place] PROCEDURES Final Result * BI Mammogram Diagnostic Tomosynthesis added right (12/08/2024 11:28 AM EDT) Anatomical Region Laterality Modality Breast Left Mammography 12/08/2024 11:2 8 AM EDT Narrative 12/08/2024 12:10 PM EDT [facility] [address] [place] [address] Mammography Report Signed Patient: Malissa Lui MR#: [id number] 1590 : 1965 Acct:[id number] Age/Sex: 59 / F ADM Date: 12/08/24 Loc: HO.MAMMO Attending Dr: Naila Georges MD Ordering Physician: Naila Georges MD Results: 3.6MPro bably Benign Finding - Short 6 M F/U Suggested Date of Service: 12/08/24 Follow Up: 6 Month F/U Procedure(s): MM tomosynthesis added views R Accession Number(s): [id number] cc: Naila Georges MD EXAMINATION: MM DIAGNOSTIC [...] 12/08/24 1207 DD/ 1128 TD/TT: 12/08/24 1148 Inspector [employer]: Procedure Note Donotuseinterpreter, Image - 12/08/2024 [facility] [address] [place], [place] [address] Mammography Report Signed Patient: Malissa LuiMR#: [id number] 1590 : 1965Acct:[id number] Age/Sex: 59 / FADM Date: 12/08/24 Loc: HO.MAMMO Attending Dr: Naila Georges MD Ordering Physician: Naila Georges MDResults: 3.6MPro bably Benign Finding - Short 6 M F/U Suggested Date of Service: 12/08/24Follow Up: 6 Month F/U Procedure(s): MM tomosynthesis added views R Accession Number(s): [id number] cc: Naila Georges MD EXAMINATION: MM DIAGNOSTIC [...] 12/08/24 1207 DD/ 1128 TD/TT: 12/08/24 1148 Inspector [employer]ities: Naila Georges MD IMG BI PROCEDURES Final Result * BI Mammogram Screening Tomosynthesis Right (10/25/2024 9:14 AM EDT) Anatomical Region Laterality Modality Breast Right Mammography 10/25/2024 9:14 AM EDT Narrative 11/02/2024 10:46 AM EDT [facility] [place] [address] Mammography Report Signed Patient: Malissa Lui MR#: [id number] 1590 : 1965 Acct:[id number] Age/Sex: 59 / F ADM Date: 10/25/24 Loc: HO.MAMMO Attending Dr: Naila Georges MD Ordering Physician: Naila Georges MD Results: 0Incomp lete: Needs Additional Imaging Evaluation Date of Service: 10/25/24 Follow Up: Additional Imagi ng Procedure(s): MM tomosynthesis screening RT Accession Number(s): [id number] cc: Naila Georges MD EXAMINATION: MM SCREENING [...] Vazquez DO in OV> 11/02/24 1044 DD/ TD/TT: 10/25/24 0943 Inspector [employer]ities: Procedure Note Donotuseinterpreter, Image - 11/02/2024 [facility] [address] [place] [address] Mammography Report Signed Patient: Malissa Lui#: [id number] : 1965Acct:[id number] Age/Sex: 59 / FADM Date: 10/25/24 Loc: HO.MAMMO Attending Dr: Naila Georges MD Ordering Physician: Naila Georges MDResults: 0Incomp lete: Needs Additional Imaging Evaluation Date of Service: 10/25/24Follow Up: Additional Imagi ng Procedure(s): MM tomosynthesis screening RT Accession Number(s): [id number] cc: Naila Georges MD EXAMINATION: MM SCREENING [...] 11/02/24 1044 DD/ 0914 TD/TT: 10/25/24 0943 Inspector [employer]: Naila Georges MD IMG BI PROCEDURES Edited Result - Final from Last 3 Months Insurance [facility] [address] [place] [address] [place] [id number] Care Teams Geophysics Teacher Relationship Specialty Start Date End Date Naila Georges MD [address] [place] [address] [place] [address] PCP - General Family Medicine 08/04/24
== END 2024-12-22 10:59 | disposition home or self-care (01) ==
PROVIDERS: Visit Provider Nurse Practitioner
DX: I50.9 Heart failure, unspecified (principal); I42.9 Cardiomyopathy, unspecified; E66.01 Morbid (severe) obesity due to excess calories; Z68.41 Body mass index [BMI] 40.0-44.9, adult; Z01.818 Encounter for other preprocedural examination
CPT/HCPCS: 99203

== ENCOUNTER → 2024-12-22 10:21 | Outpatient (BNVA) | payer MEDICAID, SELFPAY | PROVIDERS: Visit Provider Nurse Practitioner | DX: Z01.818 Encounter for other preprocedural examination (principal); I50.9 Heart failure, unspecified; I42.9 Cardiomyopathy, unspecified; E66.01 Morbid (severe) obesity due to excess calories; Z68.42 Body mass index [BMI] 45.0-49.9, adult | CPT/HCPCS: 99212 ==

== ENCOUNTER → 2025-01-18 23:59 | Outpatient (BNV) | payer MEDICAID, SELFPAY | PROVIDERS: Visit Provider Internal Medicine Cardiovascular Disease | DX: I50.22 Chronic systolic (congestive) heart failure (principal) | CPT/HCPCS: 93458; 99152 ==

== ENCOUNTER 2025-02-01 09:22 | Outpatient (AMB) | payer MEDICAID, SELFPAY ==
[2025-02-01 09:24] VITALS: BP 138/82; PULSE 92; BMI 45.9
--- NOTE | 2025-02-01 09:24 | A.OFFVIS_ITS ---
Vital Signs 02/01/25 09:24 Height 5 ft 4 in Weight 267 lb 10.259 oz BMI 45.9 BP 138/82 Blood Pressure Location Lt brachial Position Sitting Pulse 92 Pulse Source Pulse Oximeter Intake Visit Reasons: Follow up post cardiac cath Metal Furnace Operator Required: No Mainspring Barrel Assembly Cleaner: Mainspring Barrel Assembly Cleaner Present Allergies No Known Allergies (No Known Allergies*) Allergy (Verified 02/01/25 09:27) Medication List - Last Reconciled 02/01/25 by Lizet Chand, VEHICLE INSURANCE AGENT-C acetaminophen (Tylenol) 650 mg PO QID PRN aspirin 81 mg PO DAILY bisacodyl (Dulcolax (bisacodyl)) 10 mg (2 x 5 mg) PO BEDTIME 2 days carvedilol (Coreg) 3.125 mg PO BID compr.stocking,knee,long,small (T.E.D. Knee [facility] [place]) As directed empagliflozin (Jardiance) 10 mg PO DAILY furosemide 40 mg See Protocol PO DAILY meloxicam 7.5 mg PO DAILY peg 3350-electrolytes 236-22.74-6.74 -5.86 gram (Golytely) 240 mL PO Q10M 1 day sacubitril-valsartan 24-26 mg (Entresto) 1 tab See Protocol PO BID spironolactone 25 mg See Protocol PO DAILY HPI HPI Follow up post cardiac cath: Details: Malissa is a 60-year-old female with past medical history of morbid obesity, hypertension, heart failure with reduce EF, nonischemic cardiomyopathy, recent cardiac catheterization showing normal coronaries who presents for follow-up. Today she reports that she does have shortness of breath with activity which is not new. She denies shortness of breath at rest, no PND, orthopnea or edema. She says she does not sleep well and wakes up frequently during the night. She does take daytime naps. She has never had concerns for sleep apnea. No heart palpitations, lightheadedness, presyncope, syncope, falls. Ambulates with cane for balance. Admits to being mostly sedentary. Takes meds as directed. Significant other present. [facility] Medical History (Updated 02/01/25 @ 12:38 by Lizet Chand, SHERITA-C) Hypertension Surgical History (Updated 02/01/25 @ 12:36 by Lizet Chand NP-C) History of cardiac cath H/O colonoscopy H/O mastectomy Social History Household Members: Other Household Members Other:: son Housing: Apartment Do you presently have visiting nurse or other home services: No Alcohol intake: current Patient Tobacco Use Status: Never used Tobacco Substance Use Type: Marijuana service: No Review of Systems Const All systems reviewed & are unremarkable except as noted in HPI and below Reports fatigue ENT Denies dizziness Card Denies chest pain, Denies chest pain at rest, Denies chest pain with activity, Denies rapid heart rate, Denies pedal edema, Denies edema, Denies leg edema, Denies lightheadedness, Denies palpitations, Denies dyspnea, Reports dyspnea on exertion and Denies orthopnea Resp Denies cough, Denies dyspnea and Reports dyspnea on exertion GI Denies hematochezia and Denies change in stool character Musc Reports abnormal gait (cane for balance), Denies limited range of motion, Denies muscle cramps, Denies muscle weakness, Denies numbness, Denies radiating pain into limb, Denies stiffness and Denies tingling Neuro Reports abnormal gait (cane for balance), Denies dizziness, Denies numbness and Denies tingling Endo Reports fatigue and Denies palpitations Physical Exam Vital Signs: Last Vital Signs Pulse 92 02/01/25 09:24 BP 138/82 02/01/25 09:24 BMI result Body Mass Index 45.9 Const Other: morbidly obese General: cooperative, comfortable and no acute distress Orientation/consciousness: patient oriented x3 Neck Neck: Yes normal visual inspection and Yes no JVD Resp Effort & Inspection: normal respiratory effort Auscultation: clear to auscultation bilaterally, no rales, no rhonchi and no wheezes Cardio Rate: regular rate Rhythm: regular rhythm Heart sounds: S1 normal heart sound present, S2 normal heart sound present, no gallops, no murmurs and no rubs Neuro General: patient oriented x3 Extrem General: Yes normal to inspection, No no pedal edema and No calf tenderness Psych Appearance: grossly normal Mental Status: mental status grossly normal Speech and movement: Normal speech and movement present Assessment & Plan Assessment & Plan (1) Cardiomyopathy: Code(s): I42.9 - Cardiomyopathy, unspecified Category: Medical Plan: Nonischemic cardiomyopathy with prior admission for heart failure with reduced EF. Cardiac catheterization 01/18/2025 showing normal coronaries. She is on guideline directed medical therapy with carvedilol, Entresto, Aldactone and Jardiance. She is not fluid overloaded on exam. Discussed ICD placement and she declines at this time. Signs and symptoms of heart failure reviewed with her. Cardiology follow-up 3 months, sooner if needed. (2) History of cardiac cath: Comment: 01/18/2025 normal coronaries Code(s): Z98.890 - Other specified postprocedural states Category: Surgical Plan: Right radial catheterization site well healed (3) Congestive heart failure (CHF): Code(s): I50.9 - Heart failure, unspecified Category: Medical Plan: Prior admission for heart failure with reduced EF. No recent readmissions. She is not fluid overloaded on exam. Continue Lasix 40 mg daily. (4) Hypertension: Code(s): I10 - Essential (primary) hypertension Category: Medical Plan: Blood pressure goal less than 130/80. Initially mildly elevated at 130 8/82. Recheck done by me later in the visit 104/72. No med changes made. (5) Morbid obesity with BMI of 40.0-44.9, adult: Code(s): E66.01 - Morbid (severe) obesity due to excess calories; Z68.41 - Body mass index [BMI] 40.0-44.9, adult Category: Medical Plan: Morbid obesity and mostly sedentary. The need for weight loss and increasing physical activity as tolerated reviewed with her. (6) Fatigue: Code(s): R53.83 - Other fatigue Category: Medical Plan: Does not sleep well at night, wakes frequently and has daytime fatigue. No known witnessed apnea or snoring. Declines sleep study. Informed her that untreated sleep apnea can reduce heart pumping power. Plan I discussed with the patient the current status of her heart failure and the absence of arterial blockages as confirmed by cardiac catheterization. We reviewed the potential need for a defibrillator since her heart function did not improve with medication. The patient was informed about the risks of untreated sleep apnea and its potential impact on heart health, but she declined further testing. Follow-up care was arranged with Dr. Prakash in three months to reassess her condition and discuss further management options. Patient Instructions: - Continue taking Entresto and carvedilol as prescribed. - Monitor for any worsening of symptoms, such as increased shortness of breath or swelling, and report them. - Follow up with Dr. Prakash in three months for reassessment. Patient was informed and verbally consented to the use of an ambient scribe for clinic note documentation during this visit. Visit time spent on chart review, interview, assessment, orders, documentation. Coding Level of Care Code Est Pt Level 4 (08869) Complex EM visit Add On G2211 Diagnoses Cardiomyopathy I42.9 History of cardiac cath Z98.890 Congestive heart failure (CHF) I50.9 Hypertension I10 Morbid obesity with BMI of 40.0-44.9, adult E66.01; Z68.41 Fatigue R53.83 Time Spent (min) 32
--- OUTSIDE RECORDS SUMMARY | 2025-02-01 10:16 | XMS_ITS | Encounter Summary ---
Author Organization [employer] Address [address] [facility] [address] [place] [address] Care Team Providers Care Call Center Coordinator Name Role Phone Naila Georges MD Primary Care Provider [phone] Encounter Details Date Type Department Care Team ([facility] Contact Info) Description 01/11/2025 Results Follow-Up [facility] PEDS [address] [place], [place] [phone] Joanna Dillon MD [address] [place] [address] Pap Smear, HPV High Risk with Reflex to Subtypes Social History Tobacco Use Types Packs/Day Years [...] documented as of this encounter Care Teams Call Center Coordinator Relationship Specialty Start Date End Date Naila Georges MD [address] [place] [phone] PCP - General Family Medicine 08/04/24 documented as of this encounter
--- OUTSIDE RECORDS SUMMARY | 2025-02-01 10:16 | XMS_ITS | Encounter Summary ---
Author Organization [employer] Address [address] [facility] [address] [place] [address] Care Team Providers Care Engineering Manager Electronics Name Role Phone Naila Georges MD Primary Care Provider [phone] Encounter Details Date Type Department Care Team ([facility] Contact Info) Description 12/09/2024 Results Follow-Up [facility] MED & PEDS [address] [place], [place] [phone] Naila Georges MD [address] [place] [address] BI US Breast Limited Right Social History [...] difficult at all 12/09/2024 9:34 AM EDT Adamairs Macdonald [place] documented as of this encounter Miscellaneous Notes * Result Encounter Note - Naila Georges MD - 12/09/2024 9:08 AM EDT 6 [facility] follow up BRADS 3.Needs tracking documented in this encounter Plan of Treatment Not on file documented as of this encounter Visit Diagnoses Not on filedocumented in this encounter Additional Health Concerns Assessment Noted Time PHQ-9 Depression Total Score: 12 025 9:34 AM EDT documented as of this encounter Care Teams Engineering Manager Electronics Relationship Specialty Start Date End Date Naila Georges MD [address] [place] [address] PCP - General Family Medicine 08/04/24 documented as of this encounter
--- OUTSIDE RECORDS SUMMARY | 2025-02-01 10:16 | XMS_ITS | Clinical Summary ---
Author Organization [employer] Address [address] [facility] [address] [place] [address] Care Team Providers Care Matrix Worker Name Role Phone Naila Georges MD Primary Care Provider [phone] Allergies No known active allergies Medications Entresto 24-26 MG tablet Take 1 tablet by mouth 2 times daily. 180 tablet 3 5 08/05/19 26 Active carvedilol (Coreg) 3.125 MG tablet Take 1 tablet (3.125 mg) by mouth with breakfast and with evening meal. 180 tablet 3 5 Active spironolactone (Aldactone) 25 MG tablet Take 1 tablet (25 mg) by mouth Once per day. 90 tablet 3 5 Active Aspirin Low Dose 81 MG EC tablet Take 1 tablet (81 mg) by mouth Once per day. 90 tablet 3 5 Active furosemide (Lasix) 40 MG tablet Take 1 tablet (40 mg) by mouth Once per day. 90 tablet 3 5 Active meloxicam (Mobic) 7.5 MG tablet Take 1 tablet (7.5 mg) by mouth Once per day. 30 tablet 5 12/10/19 26 Active empagliflozin (Jardiance) 10 MG TAKE 1 TABLET BY MOUTH EVERY DAY 30 tablet 5 Active Active Problems Problem Noted Date Diagnosed [...] Encounters Date Type Department Care Team Description 01/11/2025 Results Follow-Up [facility] [address] [place] [address] Joanna Dillon MD Pap Smear, HPV High Risk with Reflex to Subtypes 12/13/2024 10:00 AM EDT Procedure Visit [facility] [address] [place] [address] Joanna Dillon MD Cervical cancer screening (Primary Dx); Encounter for immunization 12/13/2024 Travel 12/09/2024 9:30 AM EDT Office Visit [facility] [address] [place] [address] Naila Georges MD Chronic combined systolic and diastolic congestive heart failure (CMS/HCC) (Primary Dx); Encounter for immunization; Encounter for screening for malignant neoplasm of colon; Arthralgia, unspecified joint 12/09/2024 Refill [facility] [address] [place] [address] Naila Georges MD 12/09/2024 Travel 12/09/2024 Results Follow-Up [facility] [address] [place] [address] Naila Georges MD BI US Breast Limited Right 12/08/2024 Orders Only [facility] [address] [place] [address] Naila Georges MD 12/08/2024 Telephone [facility] [address] [place] [address] Naila Georges MD Chart Prep 11/05/2024 Telephone [facility] [address] [place] [phone] Naila Georges MD Nurse Triage from Last 3 Months Immunizations Immunization Administration [...] - 19+ 3-dose series) 1985 COVID-19 Vaccine ( - 2023-2 5 season) 2024 Influenza Vaccine (#1) 2024 Diagnostic Breast Imaging 06/07/2025 12/08/2024 Depression Monitoring 06/08/2025 12/09/2024 , 12/09/2024 SDOH Screening 07/28/2025 07/28/2024 Alcohol/Substance Use Screening 08/04/2025 08/04/2024 Disability Screening 12/09/2025 12/09/2024 Tobacco Screening 12/13/2025 12/13/2024 Zoster Vaccines (1 of 2) 12/13/2025 Pos tponed from 01/02/2016 (Patient Refused) Cervical Cancer Screening 12/13/2029 HPV/Cotest 12/13/2029 12/13/2024, 06/09/2018 Pap Smear 12/13/2029 12/13/2024 DTaP/Tdap/Td Vaccines (2 - T d or [...] VIEW RIGHT Routine 12/08/2024 11:28 AM EDT from Last 3 Months Results * HPV High Risk with Reflex to Subtypes (12/13/2024 10:20 AM EDT) HPV High Risk Negative Negative [facility] HPV Genotype 16 Negative Negative [facility] HPV Genotype 18 Negative Negative [facility] Comment:HPV testing performe d at [facility] (CLIA#[id number]), [address] [place] [address].Testing for HPV was performed using the [place] [...] MD LAB BLOOD ORDERABLES Final Re sult [facility] [address] [place] [phone] * Pap Smear (12/13/2024 10:20 AM EDT) Swab 12/13/2024 10:2 0 AM EDT 12/13/2024 3:49 PM EDT Zoraida [facility] - 12/16/2024 2:36 PM EDT ----- ------- Name: Malissa Lui Age/Sex: 59/F : 1965 Unit#: [id number] Attend Dr: Joanna Dillon MD Re12/13/24 Status: DEP REF Location: [facility] Disch: ----- ------- SPEC : [id number] RECD: 12/13/24 STATUS: DOREEN FARFAN NUM: [id number] TANJA: 12/13/241020 [facility] DR: Joanna Dillon MD ENTERED: 12/13/24 SP TYPE: Pap Smr OT DR: ORDERED: Pap Smear Interpretation Satisfactory for [...] and HPV testing will be performed at [facility] (CLIA #[id number]), [address] [place] [address]. Testing for HPV was performed using the [...] detected. All professional services are performed by [facility] ([address] [place] [address], [place] [address]; ; CLIA #[id number]). The PAP Test is a screening procedure with the inherent possibility of both false negative and false positive results. Results should be interpreted in the context of historic and current clinical findings. Reliability of the PAP Test is enhanced by performing the test on a regular repetitive basis. ----- ------- Signed (signature on file) ANNIA Marroquin ([facility]) 12/16/24 1436 ----- ------- END OF REPORT us Joanna Dillon MD LAB CYTOLOGY ORDERABLES Final Result [facility] [address] [place] [phone] * (ABNORMAL) Hepatic Function Panel (12/09/2024 10:38 AM EDT) Bilirubin, Total 0.5 0.0 - 1.0 mg/dL [facility] Bilirubin, Direct 0.2 0.0 - 0.5 mg/dL [facility] Aspartate Amino Transferase 48(H) 5 - 31 U/L [facility] Comment:Slight Hemolysis.Int erpret result with caution. Alanine Aminotransferase 30 0 - 31 U/L [facility] Total Protein 8.1(H) 6.5 - 8.0 g/dL [facility] Albumin Level 4.5 3.5 - 5.0 g/dL [facility] Alkaline Phosphatase 90 39 - 117 U/L [facility] Blood Venous blood specimen / Unknown 12/09/2024 10:38 AM EDT 12/09/2024 2:14 PM EDT Naila Georges MD LAB BLOOD ORDERABLES Final Resul t Performing Organization Address [facility] Co de Phone Number [facility] [address] [place] [phone] [phone] * (ABNORMAL) Lipid Panel, Standard (12/09/2024 10:38 AM EDT) Triglycerides 119 <150 mg/dL [facility] Comment:Desirable Triglyceri de: less than 150 mg/dLBorderline High Triglyceride 150-199 mg/dLHigh Triglyceride: 200-499 mg/dLVery High Triglyceride: greater than or equal to 5OO mg/dL Cholesterol 203(H) <200 mg/dL [facility] Comment:Desirable Cholestero l: less than 200 mg/dLBorderline High Cholesterol: 200-239 mg/dLHigh Cholesterol: greater than 239 mg/dL LDL Cholesterol Calculated 117(H) <100 mg/dL [facility] Comment:Desirable LDL: less than 100 mg/dLNear Optimal/Above Optimal LDL: 110- 129 mg/dLBorderline High LDL: 130-159 mg/dLHigh LDL: 160-189 mg/dLVery High LDL: greater than or equal to 190 mg/dL HDL Cholesterol 63 >40 mg/dL [facility] Comment:Desirable HDL: great er than 40 mg/dL Note: This HDL assay may give artificially low results in patients with liver disease. Blood Venous blood specimen / Unknown 12/09/2024 10:38 AM EDT 12/09/2024 2:14 PM EDT us Naila Georges MD LAB BLOOD ORDERABLES Final Resul t Performing Organization Address [facility]/ZIP Co de Phone Number [facility] [address] [place] [phone] * (ABNORMAL) Basic Metabolic Panel (12/09/2024 10:38 AM EDT) Sodium 141 135 - 145 mmol/L [facility] Potassium 5.0 3.3 - 5.1 mmol/L [facility] Comment:Slight Hemolysis.Int erpret result with caution. Chloride 104 96 - 108 mmol/L [facility] Carbon Dioxide 30(H) 22 - 29 mmol/L [facility] Anion Gap 12 12 - 20 [facility] Urea Nitrogen (BUN) 11 9 - 16 mg/dL [facility] Creatinine, Serum 0.98 0.5 - 1.4 mg/dL [facility] Estimated Glomerular Filt Rate 58 [facility] Comment:Chronic Kidney Disea se: Estimated GFR < 60 mL/min/1.49r2Wluceh Kidney Disease: Estimated GFR < 15 mL/min/1.73m2 Glucose 84 60 - 115 mg/dL [facility] Calcium 9.6 8.4 - 10.2 mg/dL [facility] Blood Venous blood specimen / Unknown 12/09/2024 10:38 AM EDT 12/09/2024 2:14 PM EDT us Naila Georges MD LAB BLOOD ORDERABLES Final Resul t [facility] [address] [place] [phone] * BI US Breast Limited Right (12/08/2024 11:55 AM EDT) Anatomical Region Laterality Modality Breast Right Ultrasound 12/08/2024 11:5 5 AM EDT Narrative 12/08/2024 12:10 PM EDT [facility] [address] [place] [address] Ultrasound Report Signed Patient: Malissa Lui MR#: [id number] 1590 : 1965 Acct:[id number] Age/Sex: 59 / F ADM Date: 12/08/24 Loc: HO.MAMMO Attending Dr: Naila Georges MD Ordering Physician: Naila Georges MD Date of Service: 12/08/24 Procedure(s): US breast RT limited mamm only Accession Number(s): [id number] cc: Naila Georges MD Reason for Exam: [...] 12/08/24 1207 DD/ 1155 TD/TT: 12/08/24 1206 Coat Tailor: Procedure Note Donotuseinterpreter, Image - 12/08/2024 [facility] [address] [place] [address] Ultrasound Report Signed Patient: Malissa Lui#: [id number] : 1965Acct:[id number] Age/Sex: 59 / FADM Date: 12/08/24 Loc: HO.MAMMO Attending Dr: Naila Georges MD Ordering Physician: Naila Georges MD Date of Service: 12/08/24 Procedure(s): US breast RT limited mamm only Accession Number(s): [id number] cc: Naila Georges MD Reason for Exam: [...] 12/08/24 1207 DD/ 1155 TD/TT: 12/08/24 1206 Coat Tailor: Naila Georges MD IMG US PROCEDURES Final Result * BI Mammogram Diagnostic Tomosynthesis added right (12/08/2024 11:28 AM EDT) Anatomical Region Laterality Modality Breast Left Mammography 12/08/2024 11:2 8 AM EDT Narrative 12/08/2024 12:10 PM EDT [facility] [address] [place], [place] [address] Mammography Report Signed Patient: Malissa Lui MR#: [id number] 1590 : 1965 Acct:[id number] Age/Sex: 59 / F ADM Date: 12/08/24 Loc: HO.MAMMO Attending Dr: Naila Georges MD Ordering Physician: Naila Georges MD Results: 3.6MPro bably Benign Finding - Short 6 M F/U Suggested Date of Service: 12/08/24 Follow Up: 6 Month F/U Procedure(s): MM tomosynthesis added views R Accession Number(s): [id number] cc: Naila Georges MD EXAMINATION: MM DIAGNOSTIC [...] 12/08/24 1207 DD/ 1128 TD/TT: 12/08/24 1148 Coat Tailor: Procedure Note Donotuseinterpreter, Image - 12/08/2024 [facility] [address] [place] [address] Mammography Report Signed Patient: Malissa Lui#: [id number] : 1965Acct:[id number] Age/Sex: 59 / FADM Date: 12/08/24 Loc: HO.MAMMO Attending Dr: Naila Georges MD Ordering Physician: aNila Georges MDResults: 3.6MPro bably Benign Finding - Short 6 M F/U Suggested Date of Service: 12/08/24Follow Up: 6 Month F/U Procedure(s): MM tomosynthesis added views R Accession Number(s): [id number] cc: Naila Georges MD EXAMINATION: MM DIAGNOSTIC [...] 12/08/24 1207 DD/ 1128 TD/TT: 12/08/24 1148 Coat Tailor: Naila Georges MD IMG BI PROCEDURES Final Result from Last 3 Months Insurance [facility] [address] [place] [id number] [place] [id number] Care Teams Matrix Worker Relationship Specialty Start Date End Date Naila Georges MD [address] [place] [address] [place] [address] PCP - General Family Medicine 08/04/24
--- OUTSIDE RECORDS SUMMARY | 2025-02-01 10:16 | XMS_ITS | Encounter Summary ---
Author Organization [employer] Address [address] [facility] 7t [place] [address] Care Team Providers Care Assistant Finance Director Name Role Phone Naila Georges MD Primary Care Provider [phone] Encounter Details Date Type Department Care Team ([facility] st Contact Info) Description 05/20/2024 Telephone [facility] [address] [place] [address] Ovidio Barber MD [address] [place], [place] [phone] Social History Tobacco Use Types Packs/Day Years [...] Medical Concern: Insurance name : Location : [facility] Demographic information updated documented in this encounter Plan of Treatment Not on file documented as of this encounter Visit Diagnoses Not on filedocumented in this encounter Care Teams Assistant Finance Director Relationship Specialty Start Date End Date Naila Georges MD [address] [place] [phone] PCP - General Family Medicine 08/04/24 documented as of this encounter
--- OUTSIDE RECORDS SUMMARY | 2025-02-01 10:16 | XMS_ITS | Clinical Summary ---
Author Organization [facility] it Address [address] [place] [address] Care Team Providers Care Nozzle Cement Sprayer Helper Name Role Phone Unavailable Primary Care Provider [...] Last Done Comments Breast Cancer Screening 1965 Colorectal Cancer Screening: Colonoscopy 1965 DTaP,Tdap,and Td Vaccines (1 - Tdap) 1985 Hepatitis B Vaccines (1 of 3 - 19+ 3-dose series) 1985 Cervical Cancer Screening: P ap Smear 1987 Pneumococcal Vaccine: 50+ Ye ars (1 of 1 - PCV) 01/02/2016 Zoster Vaccines (1 of 2) 01/02/2016 HIV Screening 02/27/2022 Hepatitis C Screening 02/27/2022 Social Influencers of Health Screening 02/27/2022 Depression Screening 03/31/2024 COVID-19 Vaccine ( - 2023-2 5 season) 2024 Influenza Vaccine (#1) 2024 RSV Immunization Adult Patie nts (1 - 1-dose 75+ series) 2041 HIB [...]
== END 2025-02-01 09:51 | disposition home or self-care (01) ==
LOC: HO.HCS 09:22
PROVIDERS: PCP Student in an Organized Health Care Education/Training Program; Visit Provider Nurse Practitioner Family
DX: I42.9 Cardiomyopathy, unspecified (principal); Z98.890 Other specified postprocedural states; I50.9 Heart failure, unspecified; I10 Essential (primary) hypertension; E66.01 Morbid (severe) obesity due to excess calories; Z68.41 Body mass index [BMI] 40.0-44.9, adult; R53.83 Other fatigue
CPT/HCPCS: 99214

== ENCOUNTER → 2025-02-01 09:22 | Outpatient (BNVA) | payer MEDICAID, SELFPAY | PROVIDERS: PCP Student in an Organized Health Care Education/Training Program; Visit Provider Nurse Practitioner Family | DX: I42.9 Cardiomyopathy, unspecified (principal); I11.0 Hypertensive heart disease with heart failure; I50.20 Unspecified systolic (congestive) heart failure; E66.01 Morbid (severe) obesity due to excess calories; R53.83 Other fatigue; Z68.42 Body mass index [BMI] 45.0-49.9, adult; Z98.890 Other specified postprocedural states | CPT/HCPCS: 99212 ==